=== PATIENT | female | born 1935 | race Caucasian/White ===

== ENCOUNTER → 2017-08-24 13:20 | Outpatient (POV) | payer MEDICARE, OTHER, SELFPAY | PROVIDERS: PCP Family Medicine; Visit Provider Nurse Practitioner Acute Care | DX: Z00.00 Encounter for general adult medical examination without abnormal findings (principal) ==

== ENCOUNTER → 2017-10-29 10:11 | Outpatient (CLI) | payer MEDICARE, OTHER, SELFPAY ==
--- NOTE | 2017-10-29 10:16 | XR_ITS ---
XR knee LT 4V HISTORY: ITS.REASON: Left knee pain ORDERING PHYSICIAN: Trenton Evans MD PATIENT AGE: 82 years COMPARISON: 04/18/2016 FINDINGS: Weightbearing views are performed. Moderate osteoarthritic changes are present at the medial compartment and patellofemoral joint this may be slightly worse along the medial compartment compared to the previous exam. No displaced fracture or dislocation. No lytic or blastic change. There is lucency present at the base of the lateral tibial spine spur or could represent fracture of the spur. IMPRESSION: Moderate osteoarthritis of the medial compartment and patellofemoral joint with possible fracture at the base of a lateral tibial spine spur
--- NOTE | 2017-10-29 10:16 | XR_ITS ---
XR knee RT 4V HISTORY: ITS.REASON: Right knee pain ORDERING PHYSICIAN: Trenton Evans MD PATIENT AGE: 82 years COMPARISON: 04/18/2016 FINDINGS: Weightbearing views are performed. Mild to moderate osteoarthritic changes are present at the medial compartment and patellofemoral joint similar when compared to the previous exam. Multiple small calcific densities are present in the medial popliteal fossa consistent with synovial osteochondromas. No fracture or dislocation. No lytic or blastic change. 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
== END ==
PROVIDERS: PCP Family Medicine; Visit Provider Orthopaedic Surgery
DX: M17.11 Unilateral primary osteoarthritis, right knee (principal); M17.12 Unilateral primary osteoarthritis, left knee
CPT/HCPCS: 73564

== ENCOUNTER → 2018-01-25 11:06 | Outpatient (CLI) | payer MEDICARE, OTHER, SELFPAY ==
--- NOTE | 2018-01-25 11:14 | XR_ITS ---
XR hip LT 2-3V w/pelvis HISTORY: Pain ITS.REASON: ARTHRITIS ORDERING PHYSICIAN: Anthony Vargas MD PATIENT AGE: 82 years COMPARISON: None FINDINGS: Minimal osteoarthritic changes are present involving the left hip. No fracture or dislocation. No lytic or blastic change. Facet arthritic changes are present involving the lower lumbar spine lumbar scoliosis convex left. IMPRESSION: Mild osteoarthritis of left hip
== END ==
PROVIDERS: PCP Family Medicine; Visit Provider Family Medicine
DX: M19.90 Unspecified osteoarthritis, unspecified site (principal)
CPT/HCPCS: 73502

== ENCOUNTER → 2018-08-23 12:37 | Outpatient (POV) | payer MEDICARE, OTHER, SELFPAY | PROVIDERS: Visit Provider Nurse Practitioner Acute Care | DX: Z00.00 Encounter for general adult medical examination without abnormal findings (principal) ==

== ENCOUNTER → 2019-01-04 13:35 | Outpatient (CLI) | payer MEDICARE, OTHER, SELFPAY ==
--- NOTE | 2019-01-04 13:43 | XR_ITS ---
XR knee RT 3V HISTORY: ITS.REASON: CHRONIC KNEE PAIN ORDERING PHYSICIAN: Anthony Vargas MD PATIENT AGE: 83 years COMPARISON: 10/29/2017 FINDINGS Moderate osteoarthritis is present at the medial compartment and patellofemoral joint with numerous loose bodies in the popliteal fossa. Spurring is noted of the tibial spine. No acute fracture or dislocation with no significant change. IMPRESSION: Osteoarthritis with multiple loose bodies/synovial osteochondromas
--- NOTE | 2019-01-04 13:43 | XR_ITS ---
XR knee LT 3V HISTORY: ITS.REASON: CHRONIC KNEE PAIN ORDERING PHYSICIAN: Anthony Vargas MD PATIENT AGE: 83 years COMPARISON: 10/29/2017 FINDINGS: There are moderate osteoarthritic changes of the medial compartment and patellofemoral joint with mild osteoarthritis of the lateral compartment. Bony spurring is present at the intercondylar region and tibial spines. No fracture or dislocation. No lytic or blastic change. The spurring is slightly worse in the tibial spine region. A calcific density is present in the popliteal region measuring 11 mm consistent with a loose body IMPRESSION: 1. Moderate osteoarthritis of left knee slightly progressed 2. Loose body in the popliteal region
== END ==
PROVIDERS: PCP Family Medicine; Visit Provider Family Medicine
DX: M25.561 Pain in right knee (principal); G89.29 Other chronic pain
CPT/HCPCS: 73562

== ENCOUNTER → 2019-01-11 12:49 | Outpatient (CLI) | payer MEDICARE, OTHER, SELFPAY ==
--- NOTE | 2019-01-11 12:55 | XR_ITS ---
XR DEXA axial skeleton HISTORY: ITS.REASON: POST MENOPAUSAL ORDERING PHYSICIAN: Anthony Vargas MD PATIENT AGE: 83 years COMPARISON: 01/27/2017 FINDINGS: The BMD measured at the Left femoral neck is 0.723 g/cm squared with a T score of -2.3. This is considered Osteopenic according to the World Health Organization criteria. Fracture risk is Moderate. Treatment is advised. The L1 L4 density has a T score of -0.2 decreased by 2.4%. The hip density has decreased by 3.5%. Scanogram images show mild lumbar scoliosis convex left IMPRESSION: Osteopenia with marked fracture risk. Treatment is advised. Suggest follow-up exam December 2020 Lumbar scoliosis convex left
== END ==
PROVIDERS: PCP Family Medicine; Visit Provider Family Medicine
DX: Z78.0 Asymptomatic menopausal state (principal)
CPT/HCPCS: 77080

== ENCOUNTER → 2019-06-01 13:26 | Outpatient (CLI) | payer MEDICARE, OTHER, SELFPAY ==
--- NOTE | 2019-06-01 13:35 | XR_ITS ---
PROCEDURE: XR KNEE RT 4V CLINICAL INDICATION: right knee pain Chronic right knee pain COMPARISON: [id number] KNEE-4 OR 5 VIEWS-LT from 04/18/2016 [id number] KNEE-4 OR 5 VIEWS-RT from 04/18/2016 [id number] XR knee LT 4V from 10/29/2017 [id number] XR knee RT 4V from 10/29/2017 FINDINGS: No fracture or dislocation. No lytic or blastic change. There is normal mineralization. There are mild tricompartmental osteoarthritic changes. Bony spurring is present at the tibial spines. There are multiple loose bodies along the medial aspect of the distal femur at the metaphyseal region medially. There is generalized vascular calcification. IMPRESSION: No change mild osteoarthritis with loose intra-articular bodies Dictated by: Torsten Szymanski MD 06/01/2019 18:05 Electronically signed by Torsten Szymanski MD in [place] 06/01/2019 18:05
--- NOTE | 2019-06-01 13:35 | XR_ITS ---
PROCEDURE: XR KNEE LT 4V CLINICAL INDICATION: left knee pain Chronic knee pain COMPARISON: [id number] KNEE-4 OR 5 VIEWS-LT from 04/18/2016 [id number] KNEE-4 OR 5 VIEWS-RT from 04/18/2016 [id number] XR knee LT 4V from 10/29/2017 [id number] XR knee RT 4V from 10/29/2017 FINDINGS: There are moderate to severe osteoarthritic changes of the medial compartment with mild osteoarthritis of the patellofemoral joint. The osteoarthritis medially is somewhat worse. There may be a loose body in the intercondylar region of the distal femur versus an overlying osteophyte. There is generalized vascular calcification. IMPRESSION: Moderate to severe osteoarthritis which has shown some progression at the medial compartment with possible loose body Dictated by: Torsten Szymanski MD 06/01/2019 18:07 Electronically signed by Torsten Szymanski MD in [place] 06/01/2019 18:07
== END ==
PROVIDERS: PCP Family Medicine; Visit Provider Orthopaedic Surgery
DX: M25.562 Pain in left knee (principal); M25.561 Pain in right knee
CPT/HCPCS: 73564

== ENCOUNTER 2019-07-21 14:30 | Outpatient (RCR) | payer MEDICARE, OTHER, SELFPAY ==
--- NOTE | 2019-06-07 15:08 | HMH.PTOPEV ---
PT Outpatient Evaluation Rehab PT Outpatient Evaluation Start: 06/07/19 14:13 Freq: Status: Active Protocol: Document 06/07/19 14:14 MENG (Rec: 06/07/19 15:07 MENG [id number]) Electronically Signed By Manish Amanda, PT 06/07/19 14:14 Outpatient Therapy Subjective History Subjective History Pt reports h/o chronic L hip and knee pain for ~10 yrs, and more recently reports R knee 'has started to hurt'. Pt reports posterior L hip/thigh pain, and anterior B knee pain , and reports recent Xrays have revealed arthritis in both knees. Chief Complaint Pain,Stiff,Weakness Symptom Type Ache,Sharp,Dull Symptoms Relieved By Rest/Positioning,Ice Symptoms Aggravated By Sitting,Standing,Walking Prior Functional Limitations Housework,Standing,Sitting, Stairs Current Functional Limitations Lifting,Standing,Sitting, Walking,Stairs Symptom Description Constant but Variable Level of pain today (0-10) 5 Pain scale - at its best (0-10) 4 Pain scale - at its worst (0-10) 7 Hip/Knee Eval Gait Observation General Gait Pattern Observation Antalgic Gait Assistive Device Assistive Devices None / NA Palpation Tenderness right Knee Palpation Finding Tenderness Knee Palpation Overall Comment 2/4 JT LINE left Knee Palpation Finding Tenderness Knee Palpation Overall Comment 3/4 L PIRI, 2/4 MEDIAL-LATERAL JT LINE Hip Palpation Findings Tenderness MMT bilateral Hip Flexion Strength Grade 4- Good- Hip Abduction Strength Grade 4- Good- Hip Adduction Strength Grade 4- Good- Gluteus Leeroy Strength Grade 4- Good- Hip External Rotation Strength Grade 4 Good Hip Internal Rotation Strength Grade 4 Good Knee Extension Strength Grade 4 Good Knee Flexion Strength Grade 4 Good ROM Knee Flexion Active Range of Motion ( 0-125 degrees) Special Tests Hip Piriformis Test Negative Right,Positive Left Sciatic Nerve Tension Test Negative Right,Positive Left Patellar Grind Test Positive Left,Positive Right Patellar Compression Test Positive Left,Positive Right Outpatient Therapy Assessment Impairments Problems/Impairmments Palpation Tenderness,Impaired Range of Motion,Impaired Strength,Impaired Gait Pattern ,Impaired Walking,Impaired Standing,Impaired Sitting,
--- NOTE | 2019-07-05 09:21 | HMH.RHREAS ---
Rehab Reassessment Rehab OP Re-assessment Start: 07/05/19 09:13 Freq: Status: Active Protocol: Document 07/05/19 09:13 MENG (Rec: 07/05/19 09:19 MENG [id number]) Electronically Signed By Manish Amanda, PT 07/05/19 09:13 Rehab Re-assessment Subjective Subjective PT REPORTS 5/10 L HIP PAIN, 3/ 10 R KNEE PAIN, 5/10 L KNEE PAIN ON VAS, AND FEELS 50% BETTER OVERALL SINCE I EVAL Objective Objective Notes AROM: B KNEE FLX 0-125 NO PAIN MMT: B HIP FLX 4+/5, B HIP ADD /ABD/EXT 4/5, B KNEE FLX AND EXT 4+/5 TTP: L PIRI 0-08/20, L KNEE MEDIAL AND LATERAL JT LINE 1- Assessment Progress Assessment Progressing as Expected Assessment Notes PT WITH IMPROVED STRENGTH, ROM , ADN TTP Patient goals met STG'S 01/22 LTG'S 10/25 Goals Not Met STG'S 09/24, LTG'S 03/27 Plan Plan PT TO CONT. W/SKILLED P.T. TO MAKE FURTHER IMPROVEMNTS IN AROM, STRENGTH, AND TTP TO ALLOW FOR OPTIMAL FUNCTION Frequency of Therapy 2-3X/WK Duration of therapy 3-4 WKS Time and Billing Re-Eval Time 15 Re-Eval Billing Units 0 PHYSICIAN CERTIFICATION: I certify the specified therapy services for Gabi Chavis are required, authorized, and reviewed every 30 days.
== END 2019-07-21 14:35 | disposition home or self-care (01) ==
LOC: PT 14:30
PROVIDERS: PCP Family Medicine; Visit Provider Orthopaedic Surgery
DX: M17.0 Bilateral primary osteoarthritis of knee (principal)
CPT/HCPCS: 97010; 97014; 97035; 97110; 97140; 97163; 97164; G0283

== ENCOUNTER 2019-08-20 11:52 | Observation (INO) ==
--- NOTE | 2019-08-20 12:15 | Pharmacy Consult Notes ---
[facility] Pharmacy VTE Monitoring - Patient Demographics Admission date: 08/20/19 Report Date: 08/20/19 Time: 12:15 Allergies/Adverse Reactions: Patient Allergies streptomycin Allergy (Intermediate, Verified 07/22/19 00:01) NUMBNESS IN FACE homatropine [From Hycodan (with homatropin)] Adverse Reaction (Mild, Verified 07/22/19 00:01) NA-NAUSEA; ANOREXIA hydrocodone [From Hycodan (with homatropin)] Adverse Reaction (Mild, Verified 07/22/19 00:01) NA-NAUSEA; ANOREXIA - Prophylaxis VTE Prophylaxis Ordered?: Yes Types of VTE Prophylaxis: TEDS Knee High Location of Applied Device: Bilateral Lower Extremeties - VTE Diagnosis Confirmed Treatment or plan recommended: Continue Current Treatment
[2019-08-20 12:58] LABS: Basophils % 0.1 % (0.1-2.0); Eosinophils # 0.1 K/mm3 (0.0-0.4); Eosinophils % 0.4 % (0.1-12.0); Hematocrit 36.5 % (37.0-47.0); Hemoglobin 11.9 g/dL (12.2-16.2); Lymphocytes # 0.9 K/mm3 (0.7-4.5); Lymphocytes % 4.1 % (10-50); Mean Corpuscular HGB Conc 32.5 g/dL (31.8-35.4); Mean Corpuscular Volume 99.9 fl (81-99); Mean Platelet Volume 7.9 fl (7.4-10.4); Monocytes % 4.6 % (1.7-9.3); Neutrophils # 19.7 K/mm3 (1.8-7.8); Neutrophils % 90.8 % (37.0-80.0); Platelet Count 299 K/mm3 (142-424); Red Blood Count 3.66 M/mm3 (4.20-5.40); Red Cell Distribution Width 12.4 % (11.5-17.5)
[2019-08-20 13:08] LABS: Albumin Level 3.2 gm/dL (3.4-5.0); Albumin/Globulin Ratio 0.9 (1.1-1.8); Anion Gap 10.8 mEq/L (5-15); Bilirubin,Total 0.3 mg/dL (0.2-1.0); Calcium 8.8 mg/dL (8.5-10.1); Globulin 3.5 gm/dl (1.3-3.2); Total Protein,Serum 6.7 gm/dL (6.4-8.2); White Blood Count 21.4 K/mm3 (4.8-10.8)
[2019-08-20 13:50] LABS: Lymphocytes % 2 % (10-50); Monocytes % 6 % (2-9); Neutrophils % 92 % (42-76); RBC Morphology Normal; Total Cells Counted 100
--- NOTE | 2019-08-20 16:48 | History & Physical Report ---
*Admission Date: 08/20/19 *Chief complaint: Crampy abdominal pain *History of present illness: 84-year-old female with left-sided diverticulosis presented to the office today with complaint of 3 days of crampy abdominal pain that had been increasing in intensity and localized to the left lower quadrant. Stools have become more frequent but were not excessively watery. Patient denies fevers but admits to mild chills. She has had diverticulitis before that was successfully treated as an outpatient. In the office she was felt to be mildly dehydrated with significant pain and tenderness on abdominal exam and decision was made to admit the patient for inpatient treatment. Patient does have an exposure to C. difficile through her . He was diagnosed approximately 6 weeks ago with C. difficile diarrhea and was successfully treated with vancomycin. Since admission patient's white count has returned elevated at 20,000, CT scan is pending. [facility] History I have reviewed the patient's past medical history: Yes Medical History: Reports:: Cancer, Hyperlipidemia, Hypertension *Have you ever received a pneumonia vaccine?: Yes *Have you received a flu vaccine this season?: Yes Other Medical History: Reports: Arthritis Laterality Cases: Bilateral: Tonsillectomy, Other Other Surgeries: Yes: Appendectomy, Cholecystectomy, Hernia Repair, Hysterectomy-Total, Other (Gallbladder.) - *Social History Smoking Status: Never smoker Alcohol Intake: never Substance Use Type: denies use *Occupational Status:: retired Housing: apartment Household Members: spouse *Travel in the last 8 weeks: None Family Hx:: Diabetes, Heart Attack, Coronary Artery Disease, Thyroid Disorder Review of Systems - Constitutional Reports chills, Reports lack of energy, Reports weakness, Denies body ache(s), Denies fever(s), Denies night sweats - *Cardiovascular Denies chest pain - *Respiratory Denies change in phlegm color - *Gastrointestinal Reports abdominal pain, Reports bloating, Reports change in stools, Reports cramping, Reports nausea, Denies constipation, Denies heartburn, Denies difficulty swallowing, Denies excessive passing of gas, Denies incontinent of stools, Denies black, tarry stools, Denies vomiting Meds Home Medications Medication Instructions Recorded Confirmed Type hydrochlorothiazide 25 mg tablet 25 mg PO 1200 10/29/17 08/20/19 History multivitamin 1 tab PO DAILY tab 01/26/18 08/20/19 History pantoprazole 20 mg tablet,delayed 40 mg PO DAILY tab 01/26/18 08/20/19 History release Bifidobacterium Infantis [Align] 4 mg PO DAILY 08/20/19 08/20/19 History Calcium Carbonate/Vitamin D3 1 each PO 0800,1200 08/20/19 08/20/19 History [Calcium 1,000 + D3 Caplet] Temazepam [Restoril 30mg capsule] 30 mg PO HSP PRN 08/20/19 08/20/19 History Allergies Allergy/AdvReac Type Severity Reaction Status Date / Time streptomycin Allergy Intermediate NUMBNESS Verified 07/22/19 00:01 IN FACE homatropine AdvReac Mild NA-NAUSEA; Verified 07/22/19 00:01 [From Hycodan (with ANOREXIA homatropin)] hydrocodone AdvReac Mild NA-NAUSEA; Verified 07/22/19 00:01 [From Hycodan (with ANOREXIA homatropin)] Exam Vital signs and Labs for Last 24 Hours: Temp Pulse Resp BP Pulse Ox 98.3 F 83 17 106/58 L 97 08/20/19 16:00 08/20/19 16:00 08/20/19 16:00 08/20/19 16:00 08/20/19 16:00 Laboratory Results - last 24 hr 08/20/19 12:25: WBC 21.4 H*, RBC 3.66 L, Hgb 11.9 L, Hct 36.5 L, MCV 99.9 H, MCH 32.5 H, MCHC 32.5, RDW 12.4, Plt Count 299, MPV 7.9, Neut % (Auto) 90.8 H, Lymph % (Auto) 4.1 L, [place] % (Auto) 4.6, Eos % (Auto) 0.4, Baso % (Auto) 0.1, Neut # (Auto) 19.7 H, Lymph # (Auto) 0.9, [place] # (Auto) 1.0, Eos # (Auto) 0.1, Baso # (Auto) 0.0, Total Counted 100, Neutrophils % (Manual) 92 H, Lymphocytes % (Manua l) 2 L, Monocytes % (Manual) 6, Platelet Estimate Normal, RBC Morphology Normal 08/20/19 12:25: Sodium 141, Potassium 2.8 L*, Chloride 101, Carbon Dioxide 32, Anion Gap 10.8, BUN 11, Creatinine 0.54 L, Estimated Creat Clear 27, Estimated GFR 108, Est GFR ( Amer) 130, Glucose 97, Calcium 8.8, Total Bilirubin 0.3, AST 4 L, ALT 8 L, Alkaline Phosphatase 73, Total Protein 6.7, Albumin 3.2 L , Globulin 3.5 H, Albumin/Globulin Ratio 0.9 L 08/20/19 12:25: Lactate 0.8 I & O for Last 24 hours: Intake & Output 08/18/19 08/19/19 08/20/19 08/21/19 11:59 11:59 11:59 11:59 Weight 91 lb 7 oz - Constitutional no acute distress - *Routine HEENT Exam Head: Present: normocephalic Eye: Present: EOMI, PERRL ENT: Present: mucous membranes dry - *Routine Respiratory Exam Present: CTA bilaterally - *Routine Cardiovascular Exam Present: RRR, Normal S1, Normal S2 - *Routine Abdominal Exam Present: soft, tenderness (Left lower quadrant). Absent: distended, rebound, guarding, rigid - *Routine Extremities Exam Absent: cyanosis, clubbing, edema - *Routine Skin Exam Absent: intact - *Routine Neurological Exam Present: alert, oriented X3, CN II-XII intact. Absent: sensory deficit, motor deficit Assessment and Plan (1) Diverticulitis large intestine w/o perforation or abscess w/o bleeding Current visit: Yes Status: Acute Category: Medical Code(s): K57.32 - Diverticulitis of large intestine without perforation or abscess without bleeding Patient has been admitted and was originally given Flagyl to the IV while awaiting CT scan. Due to patient's frequency of stools it is less likely she has C. difficile and I am going to add Levaquin to her regimen. Patient has been ordered a liquid diet and started on IV fluids with normal saline. (2) Hypokalemia Current visit: Yes Status: Acute Category: Medical Code(s): E87.6 - Hypokalemia Potassium chloride has been added to the patient's IV fluids and she has been given oral potassium
[2019-08-21 06:20] LABS: Basophils % 0.1 % (0.1-2.0); Eosinophils # 0.1 K/mm3 (0.0-0.4); Eosinophils % 0.4 % (0.1-12.0); Hematocrit 31.3 % (37.0-47.0); Lymphocytes % 8.1 % (10-50); Mean Corpuscular HGB Conc 32.3 g/dL (31.8-35.4); Mean Corpuscular Volume 101.4 fl (81-99); Mean Platelet Volume 7.1 fl (7.4-10.4); Monocytes # 0.7 K/mm3 (0.1-1.0); Monocytes % 5.3 % (1.7-9.3); Platelet Count 261 K/mm3 (142-424); Red Blood Count 3.09 M/mm3 (4.20-5.40); Red Cell Distribution Width 12.6 % (11.5-17.5); White Blood Count 12.8 K/mm3 (4.8-10.8)
[2019-08-21 06:28] LABS: Albumin Level 2.3 gm/dL (3.4-5.0); Albumin/Globulin Ratio 0.8 (1.1-1.8); Bilirubin,Total 0.3 mg/dL (0.2-1.0); Globulin 2.8 gm/dl (1.3-3.2); Total Protein,Serum 5.1 gm/dL (6.4-8.2)
[2019-08-21 06:48] LABS: Hemoglobin 10.2 g/dL (12.2-16.2)
[2019-08-21 07:40] LABS: Anisocytosis 1+; Lymphocytes % 9 % (10-50); Macrocytosis 1+; Monocytes % 4 % (2-9); Neutrophils % 87 % (42-76); Total Cells Counted 100
--- NOTE | 2019-08-21 08:34 | Progress Note ---
Internal Medicine - PN: Subj *Date: 08/21/19 *Time: 08:32 Interval history: CT scan performed yesterday showed significant colitis and liquidy stool. Subsequent diarrhea panel returned positive for C. difficile. Patient's Levaquin was discontinued and she was started on oral vancomycin. This morning she reports no abdominal pain as long as she remains supine. She is ambulated very little and still feels quite weak. Her appetite remains poor. She had 2 episodes of diarrhea yesterday evening Exam Vital signs and Labs for Last 24 Hours: Temp Pulse Resp BP Pulse Ox 98.5 F 77 17 137/59 L 98 08/21/19 07:36 08/21/19 07:36 08/21/19 07:36 08/21/19 07:36 08/21/19 07:36 Laboratory Results - last 24 hr 08/20/19 12:25: WBC 21.4 H*, RBC 3.66 L, Hgb 11.9 L, Hct 36.5 L, MCV 99.9 H, MCH 32.5 H, MCHC 32.5, RDW 12.4, Plt Count 299, MPV 7.9, Neut % (Auto) 90.8 H, Lymph % (Auto) 4.1 L, [place] % (Auto) 4.6, Eos % (Auto) 0.4, Baso % (Auto) 0.1, Neut # (Auto) 19.7 H, Lymph # (Auto) 0.9, [place] # (Auto) 1.0, Eos # (Auto) 0.1, Baso # (Auto) 0.0, Total Counted 100, Neutrophils % (Manual) 92 H, Lymphocytes % (Manual) 2 L, Monocytes % (Manual) 6, Platelet Estimate Normal, RBC Morphology Normal 08/20/19 12:25: Sodium 141, Potassium 2.8 L*, Chloride 101, Carbon Dioxide 32, Anion Gap 10.8, BUN 11, Creatinine 0.54 L, Estimated Creat Clear 27, Estimated GFR 108, Est GFR ( Amer) 130, Glucose 97, Calcium 8.8, Total Bilirubin 0.3, AST 4 L, ALT 8 L, Alkaline Phosphatase 73, Total Protein 6.7, Albumin 3.2 L , Globulin 3.5 H, Albumin/Globulin Ratio 0.9 L 08/20/19 12:25: Lactate 0.8 08/20/19 19:37: Stl Aeromonas (PCR) Not detected, Stl C. cayetanensis PCR Not detected, Stool Rotavirus (PCR) Not detected, Stl Adenov F 40/41 PCR Not detected, Stool Astrovirus (PCR) Not detected, Stool Campylobacter PCR Not detected, Stl C.difficile Tox PCR Detected A, Stool Cryptosporidium PCR Not detected, Stl E.coli Shiga Tox PCR Not detected, Stool E coli O157 PCR Not detected, Stl Enterotoxigenic E PCR Not detected, Stool EPEC (PCR) Not detected, Stool EAEC (PCR) Not detected, Stl E. histolytica PCR Not detected, Stool Giardia Lamblia PCR Not detected, Stool Salmonella PCR Not detected, Stool Sapovirus (PCR) Not detected, Stl P. shigelloides PCR Not detected, Stl Shigella/EIEC PCR Not detected, St Y.enterocolitica PCR Not detected, Stool Vibrio (PCR) Not detected, Stl Vibrio cholerae PCR Not detected, Stl Norovirus GI/GII PCR Not detected 08/21/19 05:50: WBC 12.8 H D, RBC 3.09 L, Hgb 10.2 L D, Hct 31.3 L, MCV 101.4 H, MCH 32.7 H, MCHC 32.3, RDW 12.6, Plt Count 261, MPV 7.1 L, Neut % (Auto) 86.0 H, Lymph % (Auto) 8.1 L, [place] % (Auto) 5.3, Eos % (Auto) 0.4, Baso % (Auto) 0.1, Neut # (Auto) 11.0 H, Lymph # (Auto) 1.0, [place] # (Auto) 0.7, Eos # (Auto) 0.1, Baso # (Auto) 0.0, Total Counted 100, Neutrophils % (Manual) 87 H, Lymphocytes % (Manual) 9 L, Monocytes % (Manual) 4, Platelet Estimate Normal, RBC Morphology Not Reportable, Anisocytosis 1+, Macrocytosis 1+ 08/21/19 05:50: Sodium 143, Potassium 4.0 D, Chloride 109 H, Carbon Dioxide 27, Anion Gap 11.0, BUN 7 D, Creatinine 0.41 L D, Estimated Creat Clear 30, Estimated GFR 148, Est GFR ( Amer) 179 D, Glucose 81, Calcium 8.0 L, Total Bilirubin 0.3, AST 4 L, ALT 6 L, Alkaline Phosphatase 57, Total Protein 5.1 L, Albumin 2.3 L D, Globulin 2.8, Albumin/Globulin Ratio 0.8 L I & O for Last 24 hours: Intake & Output 08/18/19 08/19/19 08/20/19 08/21/19 11:59 11:59 11:59 11:59 Intake Total 2829 / 2829 Output Total 1501 / 1501 Balance 1328 / 1328 Weight 98 lb 7 oz Narrative: Patient looks weak. Lungs are clear. Heart has a regular rate and rhythm. Abdomen is soft with palpable fullness in the right lower quadrant and exquisite tenderness without rebound or guarding in the left lower quadrant. Bowel sounds are present Assessment and Plan (1) C. difficile colitis Current visit: Yes Status: Acute Category: Medical Code(s): A04.72 - Enterocolitis due to Clostridium difficile, not specified as recurrent (2) Diverticulitis large intestine w/o perforation or abscess w/o bleeding Current visit: Yes Status: Ruled-out Category: Medical Code(s): K57.32 - Diverticulitis of large intestine without perforation or abscess without bleeding (3) Hypokalemia Current visit: Yes Status: Resolved Category: Medical Code(s): E87.6 - Hypokalemia - Assessment and plan all Dx Assessment and Plan for all problems:: Patient continues to require inpatient management for pain control, IV fluids due to poor appetite. Patient has been encouraged to ambulate today with the assistance of nursing staff. Vancomycin will be continued. IV Flagyl will be discontinued
[2019-08-22 06:30] LABS: Basophils % 0.3 % (0.1-2.0); Eosinophils # 0.2 K/mm3 (0.0-0.4); Eosinophils % 2.2 % (0.1-12.0); Hematocrit 30.5 % (37.0-47.0); Lymphocytes # 1.2 K/mm3 (0.7-4.5); Lymphocytes % 14.9 % (10-50); Mean Corpuscular HGB Conc 32.9 g/dL (31.8-35.4); Mean Platelet Volume 7.6 fl (7.4-10.4); Monocytes # 0.4 K/mm3 (0.1-1.0); Monocytes % 4.5 % (1.7-9.3); Neutrophils # 6.2 K/mm3 (1.8-7.8); Neutrophils % 78.1 % (37.0-80.0); Platelet Count 286 K/mm3 (142-424); Red Blood Count 3.11 M/mm3 (4.20-5.40); Red Cell Distribution Width 12.4 % (11.5-17.5)
[2019-08-22 06:38] LABS: Anion Gap 11.9 mEq/L (5-15); Calcium 7.8 mg/dL (8.5-10.1)
--- NOTE | 2019-08-22 07:50 | Progress Note ---
Internal Medicine - PN: Subj *Date: 08/22/19 *Time: 07:48 Interval history: Patient believes she is feeling a little stronger. She starting to develop more of an appetite. She continues to have left lower quadrant abdominal pain. She denies any further loose stools Exam Vital signs and Labs for Last 24 Hours: Temp Pulse Resp BP Pulse Ox 97.7 F 66 16 116/52 L 95 08/22/19 04:00 08/22/19 04:00 08/22/19 04:00 08/22/19 04:00 08/22/19 04:00 Laboratory Results - last 24 hr 08/22/19 06:18: WBC 8.0 D, RBC 3.11 L, Hgb 10.0 L, Hct 30.5 L, MCV 98.0, MCH 32.2 H, MCHC 32.9, RDW 12.4, Plt Count 286, MPV 7.6, Neut % (Auto) 78.1, Lymph % (Auto) 14.9, [place] % (Auto) 4.5, Eos % (Auto) 2.2, Baso % (Auto) 0.3, Neut # (Auto) 6.2, Lymph # (Auto) 1.2, [place] # (Auto) 0.4, Eos # (Auto) 0.2, Baso # (Auto) 0.0 08/22/19 06:18: Sodium 141, Potassium 3.9, Chloride 109 H, Carbon Dioxide 24, Anion Gap 11.9, BUN 4 L D, Creatinine 0.38 L, Estimated Creat Clear 29, Estimated GFR 161, Est GFR ( Amer) 195, Glucose 65 L, Calcium 7.8 L I & O for Last 24 hours: Intake & Output 08/19/19 08/20/19 08/21/19 08/22/19 11:59 11:59 11:59 11:59 Intake Total 2829 / 2829 2554 / 2554 Output Total 1601 / 1601 1000 / 1000 Balance 1228 / 1228 1554 / 1554 Weight 98 lb 7 oz 95 lb 6 oz Narrative: Patient looks well although rather sleepy this morning. Lungs are clear. Heart has a regular rate and rhythm. Abdomen is soft with left lower quadrant tenderness to palpation. Area of tenderness seems to be shrinking. Bowel sounds are present Assessment and Plan (1) C. difficile colitis Current visit: Yes Status: Acute Category: Medical Code(s): A04.72 - Enterocolitis due to Clostridium difficile, not specified as recurrent (2) Diverticulitis large intestine w/o perforation or abscess w/o bleeding Current visit: Yes Status: Ruled-out Category: Medical Code(s): K57.32 - Diverticulitis of large intestine without perforation or abscess without bleeding (3) Hypokalemia Current visit: Yes Status: Resolved Category: Medical Code(s): E87.6 - Hypokalemia - Assessment and plan all Dx Assessment and Plan for all problems:: 1. PT eval 2. Decrease IV fluids 3. Continue oral vancomycin 4. Possible discharge tomorrow
[2019-08-23 06:42] LABS: Basophils % 0.3 % (0.1-2.0); Eosinophils # 0.2 K/mm3 (0.0-0.4); Eosinophils % 2.1 % (0.1-12.0); Hematocrit 31.1 % (37.0-47.0); Hemoglobin 10.3 g/dL (12.2-16.2); Lymphocytes % 15.1 % (10-50); Mean Corpuscular HGB Conc 33.1 g/dL (31.8-35.4); Mean Corpuscular Volume 97.4 fl (81-99); Mean Platelet Volume 7.5 fl (7.4-10.4); Monocytes # 0.3 K/mm3 (0.1-1.0); Monocytes % 4.3 % (1.7-9.3); Neutrophils # 5.4 K/mm3 (1.8-7.8); Neutrophils % 78.1 % (37.0-80.0); Platelet Count 301 K/mm3 (142-424); Red Cell Distribution Width 12.4 % (11.5-17.5); White Blood Count 6.9 K/mm3 (4.8-10.8)
[2019-08-23 06:52] LABS: Anion Gap 12.5 mEq/L (5-15)
--- NOTE | 2019-08-23 07:49 | Progress Note ---
Internal Medicine - PN: Subj *Date: 08/23/19 *Time: 07:46 Interval history: Patient reports less abdominal pain. She is still unsteady on her feet when ambulating. Her appetite is slowly improving. Exam Vital signs and Labs for Last 24 Hours: Temp Pulse Resp BP Pulse Ox 98.1 F 65 16 128/62 96 08/23/19 04:00 08/23/19 04:00 08/23/19 04:00 08/23/19 04:00 08/23/19 04:00 Laboratory Results - last 24 hr 08/23/19 06:24: WBC 6.9, RBC 3.20 L, Hgb 10.3 L, Hct 31.1 L, MCV 97.4, MCH 32.3 H, MCHC 33.1, RDW 12.4, Plt Count 301, MPV 7.5, Neut % (Auto) 78.1, Lymph % (Auto) 15.1, [place] % (Auto) 4.3, Eos % (Auto) 2.1, Baso % (Auto) 0.3, Neut # (Auto) 5.4, Lymph # (Auto) 1.0, [place] # (Auto) 0.3, Eos # (Auto) 0.2, Baso # (Auto) 0.0 08/23/19 06:24: Sodium 141, Potassium 3.5, Chloride 106, Carbon Dioxide 26, Anion Gap 12.5, BUN 4 L, Creatinine 0.37 L, Estimated Creat Clear 29, Estimated GFR 166, Est GFR ( Amer) 201, Glucose 73 L, Calcium 8.0 L I & O for Last 24 hours: Intake & Output 08/20/19 08/21/19 08/22/19 08/23/19 11:59 11:59 11:59 11:59 Intake Total 2829 / 2829 2794 / 2794 2792 / 2792 Output Total 1601 / 1601 1000 / 1000 2351 / 2351 Balance 1228 / 1228 1794 / 1794 441 / 441 Weight 98 lb 7 oz 95 lb 6 oz 97 lb 1 oz Microbiology Reports for the Last 24 Hours: Microbiology 08/20/19 12:25 Blood Blood Culture - Preliminary NO GROWTH AFTER 48 HOURS 08/20/19 12:25 Blood Blood Culture - Preliminary NO GROWTH AFTER 48 HOURS Narrative: Patient is laying in bed and appears comfortable. Lungs remain clear. Heart has a regular rate and rhythm. Abdomen is soft with left lower quadrant tenderness that is improved today compared to yesterday Assessment and Plan (1) C. difficile colitis Current visit: Yes Status: Acute Category: Medical Code(s): A04.72 - Enterocolitis due to Clostridium difficile, not specified as recurrent (2) Diverticulitis large intestine w/o perforation or abscess w/o bleeding Current visit: Yes Status: Ruled-out Category: Medical Code(s): K57.32 - Diverticulitis of large intestine without perforation or abscess without bleeding (3) Hypokalemia Current visit: Yes Status: Resolved Category: Medical Code(s): E87.6 - Hypokalemia - Assessment and plan all Dx Assessment and Plan for all problems:: Patient is improving. We will see how the day goes in regards to her ability to ambulate independently and safely. OT eval and continue physical therapy
--- NOTE | 2019-08-23 10:06 | Progress Note ---
Internal Medicine - PN: Subj *Date: 08/23/19 *Time: 10:06 Exam Vital signs and Labs for Last 24 Hours: Temp Pulse Resp BP Pulse Ox 98.4 F 77 18 140/60 95 08/23/19 08:00 08/23/19 08:00 08/23/19 08:00 08/23/19 08:00 08/23/19 08:00 Laboratory Results - last 24 hr 08/23/19 06:24: WBC 6.9, RBC 3.20 L, Hgb 10.3 L, Hct 31.1 L, MCV 97.4, MCH 32.3 H, MCHC 33.1, RDW 12.4, Plt Count 301, MPV 7.5, Neut % (Auto) 78.1, Lymph % (Auto) 15.1, [place] % (Auto) 4.3, Eos % (Auto) 2.1, Baso % (Auto) 0.3, Neut # (Auto) 5.4, Lymph # (Auto) 1.0, [place] # (Auto) 0.3, Eos # (Auto) 0.2, Baso # (Auto) 0.0 08/23/19 06:24: Sodium 141, Potassium 3.5, Chloride 106, Carbon Dioxide 26, Anion Gap 12.5, BUN 4 L, Creatinine 0.37 L, Estimated Creat Clear 29, Estimated GFR 166, Est GFR ( Amer) 201, Glucose 73 L, Calcium 8.0 L I & O for Last 24 hours: Intake & Output 08/20/19 08/21/19 08/22/19 08/23/19 23:59 23:59 23:59 23:59 Intake Total 1141 / 1141 3362 / 3362 3445 / 3565 1204 / 1204 Output Total 1400 / 1401 1001 / 1001 2251 / 2251 300 / 300 Balance -259 / -260 2361 / 2361 1194 / 1314 904 / 904 Weight 41.475 kg 44.65 kg 43.261 kg 44.027 kg Microbiology Reports for the Last 24 Hours: Microbiology 08/20/19 12:25 Blood Blood Culture - Preliminary NO GROWTH AFTER 48 HOURS 08/20/19 12:25 Blood Blood Culture - Preliminary NO GROWTH AFTER 48 HOURS Assessment and Plan (1) C. difficile colitis Current visit: Yes Status: Acute Category: Medical Code(s): A04.72 - Enterocolitis due to Clostridium difficile, not specified as recurrent (2) Diverticulitis large intestine w/o perforation or abscess w/o bleeding Current visit: Yes Status: Ruled-out Category: Medical Code(s): K57.32 - Diverticulitis of large intestine without perforation or abscess without bleeding (3) Hypokalemia Current visit: Yes Status: Resolved Category: Medical Code(s): E87.6 - Hy pokalemia The patient's infection will respond to the chosen ABx?: Yes Is the patient receiving the right drug, dose, and route?: Yes Could a more targeted ABx be ordered?: No
[2019-08-24 07:31] LABS: Basophils % 0.3 % (0.1-2.0); Eosinophils # 0.1 K/mm3 (0.0-0.4); Eosinophils % 1.6 % (0.1-12.0); Hematocrit 32.9 % (37.0-47.0); Hemoglobin 10.7 g/dL (12.2-16.2); Lymphocytes # 1.1 K/mm3 (0.7-4.5); Mean Corpuscular HGB Conc 32.7 g/dL (31.8-35.4); Mean Corpuscular Volume 100.4 fl (81-99); Mean Platelet Volume 8.2 fl (7.4-10.4); Monocytes # 0.5 K/mm3 (0.1-1.0); Monocytes % 5.5 % (1.7-9.3); Neutrophils # 6.6 K/mm3 (1.8-7.8); Neutrophils % 79.6 % (37.0-80.0); Platelet Count 323 K/mm3 (142-424); Red Blood Count 3.27 M/mm3 (4.20-5.40); Red Cell Distribution Width 12.5 % (11.5-17.5); White Blood Count 8.2 K/mm3 (4.8-10.8)
--- NOTE | 2019-08-24 08:11 | Discharge Summary ---
General - General Admission date:: 08/20/19 Discharge date: 08/24/19 HPI HPI: 84-year-old female with left-sided diverticulosis presented to the office today with complaint of 3 days of crampy abdominal pain that had been increasing in intensity and localized to the left lower quadrant. Stools have become more frequent but were not excessively watery. Patient denies fevers but admits to mild chills. She has had diverticulitis before that was successfully treated as an outpatient. In the office she was felt to be mildly dehydrated with significant pain and tenderness on abdominal exam and decision was made to admit the patient for inpatient treatment. Patient does have an exposure to C. difficile through her . He was diagnosed approximately 6 weeks ago with C. difficile diarrhea and was successfully treated with vancomycin. Since admission patient's white count has returned elevated at 20,000, CT scan is pending. Hospital Course Hospital Course: Patient was admitted initially was felt to have acute diverticulitis due to focal left lower quadrant tenderness and elevated white blood cell count. Stool panel was ordered and a CT scan was performed. CT scan showed diffuse colitis a nd diarrhea panel revealed C. difficile in the stool. Patient does have known exposure with her having C. difficile approximately 1 month ago. She was placed on oral vancomycin 4 times per day. From that point patient gradually showed improvement each day and her abdominal pain. As patient had been ill for 3 days prior to admission she was quite weak. PT was consulted once patient was showing signs of improvement. They assessed the patient and continue to work with patient over the 2 days prior to discharge. Patient showed rapid improvement in strength and steadiness on her feet. Her appetite was improving. By the day of discharge patient felt like she was eating normal amounts of food compared to what she would eat at home. Abdominal pain had resolved. Bowel movements were soft but not diarrhea. Patient will be discharged home to continue a 2-week course of vancomycin and follow-up in my office on September 02 Patient had hypokalemia on presentation and this was treated with IV potassium supplementation. Objective Vital signs: Temp Pulse Resp BP Pulse Ox 98.1 F 70 18 128/58 L 97 08/24/19 04:00 08/24/19 04:00 08/24/19 04:00 08/24/19 04:00 08/24/19 04:00 no acute distress - *Routine Respiratory Exam Present: CTA bilaterally - *Routine Cardiovascular Exam Present: RRR, Normal S1, Normal S2 - *Routine Abdominal Exam Present: soft, normoactive bowel sounds Results Labs on day of discharge: Labs from last 24 hours 08/24/19 06:40 WBC 8.2 RBC 3.27 L Hgb 10.7 L Hct 32.9 L MCV 100.4 H MCH 32.8 H MCHC 32.7 RDW 12.5 Plt Count 323 MPV 8.2 Neut % (Auto) 79.6 Lymph % (Auto) 13.0 [place] % (Auto) 5.5 Eos % (Auto) 1.6 Baso % (Auto) 0.3 Neut # (Auto) 6.6 Lymph # (Auto) 1.1 [place] # (Auto) 0.5 Eos # (Auto) 0.1 Baso # (Auto) 0.0 Preliminary micro results at discharge 08/20/19 12:25 Blood Culture - Preliminary Blood NO GROWTH AFTER 48 HOURS 08/20/19 12:25 Blood Culture - Preliminary Blood NO GROWTH AFTER 48 HOURS DS: Diagnosis - Discharge Diagnosis (1) C. difficile colitis Status: Acute (2) Diverticulitis large intestine w/o perforation or abscess w/o bleeding Status: Ruled-out (3) Hypokalemia Status: Resolved Discharge Plan - Patient Discharge Instructions ACTIVITY: Continue current activity DIET: continue same diet Patient Instructions: DI for Diverticulitis, DI for Clostridium difficile Infection - Follow up Plan Follow up with: Anthony Vargas MD [Primary Care Provider] - 09/02/19 Disposition: Home, Self-Halfway Medications: Home Medications Medication Instructions Recorded Confirmed Type hydrochlorothiazide 25 mg tablet 25 mg PO DAILY 10/29/17 08/21/19 History multivitamin 1 tab PO DAILY tab 01/26/18 08/20/19 History pantoprazole 20 mg tablet,delayed 40 mg PO DAILY tab 01/26/18 08/20/19 History release Bifidobacterium Infantis [Align] 4 mg PO DAILY 08/20/19 08/20/19 History Calcium Carbonate/Vitamin D3 1 each PO 0800,1200 08/20/19 08/20/19 History [Calcium 1,000 + D3 Caplet] Temazepam [Restoril 30mg capsule] 30 mg PO HSP PRN 08/20/19 08/20/19 History Potassium Chloride 10 meq PO DAILY #30 tablet.er 08/24/19 Rx Vancomycin HCl [Vancocin HCl] 250 mg PO Q6 #40 cap 08/24/19 Rx Prescriptions/Medication Reconciliation: New Potassium Chloride 10 meq PO DAILY #30 tablet.er Vancomycin HCl [Vancocin HCl] 250 mg PO Q6 #40 cap Continued hydrochlorothiazide 25 mg tablet 25 mg PO DAILY pantoprazole 20 mg tablet,delayed release 40 mg PO DAILY tab multivitamin 1 tab PO DAILY tab Calcium Carbonate/Vitamin D3 [Calcium 1,000 + D3 Caplet] 1 each PO 0800,1200 Bifidobacterium Infantis [Align] 4 mg PO DAILY Temazepam [Restoril 30mg capsule] 30 mg PO HSP PRN PRN Reason: Sleep - Problem Reconciliation Problems Reviewed?: Yes
== END 2019-08-24 09:49 | disposition home or self-care (01) ==
LOC: 2ND 11:52 → INTOOBSV 11:52
PROVIDERS: ADMIT Family Medicine; ATTEND Family Medicine
CPT/HCPCS: 36415; 71020; 71046; 74177; 80048; 80053; 83605; 85007; 85025; 87040; 87506; 97110; 97116; 97161; 97165; G0378; J1956; J3370; Q9967

== ENCOUNTER → 2020-04-03 09:54 | Outpatient (CLI) | payer MEDICARE, OTHER, SELFPAY ==
--- NOTE | 2020-04-03 09:57 | CA_ITS ---
APPROVED REPORT EXAM: Comprehensive 2D, Doppler, and color-flow Echocardiogram Intranet Support: Sol Scruggs RDCS Ht: 5 ft 3 in Wt: 90lbs BSA: 1.38 BP: 90/58 mmHg Indications: AV DISEASE,HTN 2D Dimensions LVOT 1.71 cm (M/F) 1.5-2.5 M-Mode Dimensions RVDd 2.11 cm (0.9-2.6) LVDd 4.76 cm (3.5-5.7) LVDs 3.18 cm (3.5-5.7) IVSd 0.97 cm (0.6-1.1) PWd 0.77 cm (0.6-1.1) EF (Teich) 61.80% FS 33.20% EDV (Teich) 105.40 mL ESV (Teich) 40.30 mL LV Diastology E/A Ratio 0.79 Aortic Valve LVOT Max 117.00 (70-110 cm/s) LVOT VTI 21.01 cm Mitral Valve MV A Velocity 75.00 (40-130 cm/s) Left Ventricle Left atrium is mildly enlarged, left ventricle is normal size, mild concentric left ventricular hypertrophy, visually estimated ejection fraction 55% with no regional wall motion abnormality, grade 1 diastolic dysfunction seen without tissue Doppler evidence of raise left atrial pressure. Right Ventricle Right atrium and right ventricular normal size and contractility. Aortic Valve Aortic valve is thickened and calcified, leaflet continue to display mobility. There is no aortic stenosis, there is moderate to severe aortic insufficiency. Mitral Valve Mitral valve has mitral calcification, leaflets are minimally thickened. There is mild mitral regurgitation. Tricuspid Valve Tricuspid valve is grossly normal, there is mild tricuspid regurgitation, tricuspid regurgitation jet velocity is inadequate for calculation of the right ventricular systolic pressure. Pulmonic Valve Pulmonic valve is poorly visualized. Great Vessels Aortic root is mildly enlarged. Pericardium No significant pericardial effusion noted. Conclusion 1. Mildly enlarged left atrium, normal left ventricular size, mild concentric left ventricular hypertrophy, visually estimated ejection fraction 55% with no regional wall motion abnormality, grade 1 diastolic dysfunction seen without tissue Doppler evidence of raise left atrial pressure. 2. Thickened and calcified aortic valve without Doppler evidence of aortic stenosis, there is moderate to severe aortic insufficiency present. Aortic root is mildly enlarged. 3. Mild mitral and tricuspid regurgitation. 4. No significant pericardial effusion noted. Electronically signed by : Claude Shelby, 04/04/2020 06:17:43
== END ==
PROVIDERS: PCP Family Medicine; Visit Provider Family Medicine
DX: I35.8 Other nonrheumatic aortic valve disorders (principal)
CPT/HCPCS: 93306

== ENCOUNTER → 2020-10-30 13:12 | Outpatient (CLI) | payer MEDICARE, OTHER, SELFPAY ==
--- NOTE | 2020-10-30 13:32 | XR_ITS ---
PROCEDURE: XR KNEE RT 4V CLINICAL INDICATION: right knee pain; weightbearing COMPARISON: CR [id number] XR knee RT 4V from 10/29/2017 CR [id number] XR knee LT 4V from 10/29/2017 CR XR KNEE LT 4V from 06/01/2019 CR XR KNEE RT 4V from 06/01/2019 FINDINGS: No fracture or dislocation. No lytic or blastic change. There is normal mineralization. Mild osteoarthritic changes are present involving the medial compartment and patellofemoral joint. Cluster small calcific densities noted in the popliteal fossa region medially consistent with loose bodies. Other findings:None. IMPRESSION: Mild osteoarthritis with loose bodies overall not significantly changed Dictated by: Torsten Szymanski MD 10/30/2020 15:04 Torsten Szymanski MD in [place] 10/30/2020 15:04
--- NOTE | 2020-10-30 13:32 | XR_ITS ---
PROCEDURE: XR KNEE LT 4V CLINICAL INDICATION: left knee pain; weightbearing COMPARISON: CR [id number] XR knee RT 4V from 10/29/2017 CR [id number] XR knee LT 4V from 10/29/2017 CR XR KNEE LT 4V from 06/01/2019 CR XR KNEE RT 4V from 06/01/2019 FINDINGS: Moderate to severe osteoarthritic changes are present at the medial compartment and patellofemoral joint. Popliteal fossa loose bodies suspected along with vascular calcification. No acute fracture or dislocation. Other findings:None. IMPRESSION: Moderate to severe osteoarthritis with loose bodies overall not significantly changed Dictated by: Torsten Szymanski MD 10/30/2020 15:05 Torsten Szymanski MD in [facility] 10/30/2020 15:05
== END ==
PROVIDERS: PCP Family Medicine; Visit Provider Orthopaedic Surgery
DX: M17.12 Unilateral primary osteoarthritis, left knee (principal); M17.11 Unilateral primary osteoarthritis, right knee
CPT/HCPCS: 73564

== ENCOUNTER 2020-11-27 11:17 | Emergency (ER) | payer MEDICARE, OTHER, SELFPAY ==
[2020-11-27 11:18] VITALS: BP 153/75; PULSE 107; RESP 18; TEMP 36.4; O2SAT 97; BMI 16.9
--- NOTE | 2020-11-27 11:20 | CT_ITS ---
PROCEDURE: CT HEAD/BRAIN WO CON CLINICAL INDICATION: headache Headache and dizziness COMPARISON: No exams were available for comparison TECHNIQUE: Axial images obtained. All CT scans at the facility use one or more dose reduction, viz: automated exposure control, ma/kV adjustment per patient size (including targeted exams where dose is matched to indication, i.e. head), or iterative reconstruction technique. FINDINGS: No midline shift, mass effect, intracranial hemorrhage, hydrocephalus, or extra-axial fluid collection is evident. There is generalized atrophy with hypoattenuation of the periventricular white matter consistent with microangiopathic changes. Osteopenia of the calvarium. No mastoid effusion. Mild mucosal thickening of the ethmoid sinuses. IMPRESSION: No acute intracranial finding Dictated by: Torsten Szymanski MD 11/27/2020 11:53 Torsten Szymanski MD in [place] 11/27/2020 11:53
--- NOTE | 2020-11-27 11:20 | HMH.EDGENADL ---
ED Disposition Clinical Impression: Fall Qualifiers: Encounter type: initial encounter Qualified Code(s): W19.XXXA - Unspecified fall, initial encounter Disposition: Home, Self-Care Condition on Discharge: Good Referrals: Anthony Vargas MD [Primary Care Provider] - 3 days Time of Disposition: 12:11 - Critical Care Critical Care Time: No Attestation: On , the high probability of a clinically significant, sudden or life threatening deterioration of the following system(s) required my full and direct attention, intervention and personal management. The time I documented below is in addition to time spent performing reported procedures but includes the following listed in this critical care notation. Medical Decision Making - Medical Records Medical records reviewed: Yes: I reviewed the patient's medical records. - Fly Inquiry Pt receiving controlled substance: No Vital Signs: 11/27/20 11:18 Temperature 97.6 F Temperature Source Oral Pulse Rate [Left Radial] 107 H Respiratory Rate 18 Blood Pressure [Right Arm] 153/75 H Blood Pressure Mean [Right Arm] 101 Blood Pressure Source [Right Arm] Automatic Cuff Blood Pressure Position [Right Arm] Sitting 02 Sat by Pulse Oximetry 97 Oxygen Delivery Method Room Air - CT Data CT Scan: Head Time Received: 11:[address] Reviewed: Yes: I have viewed the radiologist's interpretation Preliminary Findings: Normal/NAD - ECG Data Tracing #1 92 beats minute, normal sinus rhythm, normal intervals, no ST elevation or depression, no ectopy. ECG initial impression date: 11/27/20 ECG initial impression time: 10:31 Medical Decision Narrative: 85yo F evaluated after a fall yesterday. The patient was ambulatory into the emergency department out difficulty. Her physical exam is benign. EKG is unremarkable and CT of the head is negative. Patient reports her falls have been mechanical in nature. She denies any rapid heart rate, slow heart rate, skipping beats. Patient takes a sleeping pill and discussed with the patient and family that perhaps she could reduce the dose of her sleeping pill. General Adult HPI - General Stated complaint: AO [id number] fell at home, hit head,dizzy Time Seen by Provider: 11/27/20 11:20 Mode of Arrival: Ambulatory - History of Present Illness HPI narrative: 85yo F presents the emergency department after a fall yesterday at approximately 7:30 in the evening. Patient denies any headache. She complains she still feels mildly groggy this morning. She denies loss of consciousness. She denies nausea/vomiting. Patient states she stepped off the concrete sidewalk accidentally and struck the left posterior side of her head on the concrete sidewalk. Patient reports her last fall was several weeks ago inside her house when she missed stepped as well. Patient does not take blood thinner. - Related Data Home Medications Medication Instructions Recorded Confirmed hydrochlorothiazide 25 mg tablet 25 mg PO DAILY 10/29/17 10/30/20 multivitamin 1 tab PO DAILY tab 01/26/18 10/30/20 pantoprazole 20 mg tablet,delayed 40 mg PO DAILY tab 01/26/18 10/30/20 release Bifidobacterium Infantis [Align] 4 mg PO DAILY 08/20/19 10/30/20 Calcium Carbonate/Vitamin D3 1 each PO 0800,1200 08/20/19 10/30/20 [Calcium 1,000 + D3 Caplet] Temazepam [Restoril 30mg capsule] 30 mg PO HSP PRN 08/20/19 10/30/20 Previous Rx's Medication Instructions Recorded Potassium Chloride 10 meq PO DAILY #30 tablet.er 08/24/19 Vancomycin HCl [Vancocin HCl] 250 mg PO Q6 #40 cap 08/24/19 Allergies Allergy/AdvReac Type Severity Reaction Status Date / Time streptomycin Allergy Intermediate NUMBNESS Verified 10/30/20 14:42 IN FACE homatropine AdvReac Mild NA-NAUSEA; Verified 10/30/20 14:42 [From Hycodan (with ANOREXIA homatropin)] hydrocodone AdvReac Mild NA-NAUSEA; Verified 10/30/20 14:42 [From Hycodan (with ANOREXIA homatropin)] [facility] Histor
--- NOTE | 2020-11-27 11:27 | ECG_ITS ---
APPROVED REPORT Exam: Resting ECG HR:92 bpm ECG Measurements Heart Rate 92 AXES IA 186 P 72 QRSd 90 QRS 60 QT 354 T 83 QTc 437 Conclusion Normal sinus rhythm Possible Left atrial enlargement Left ventricular hypertrophy Cannot rule out Septal infarct, age undetermined Abnormal ECG Electronically signed by : Anthony Bess, 11/29/2020 13:58:50
[2020-11-27 12:20] VITALS: BP 133/62; PULSE 81; RESP 18; TEMP 36.7; O2SAT 99
== END 2020-11-27 12:19 | disposition home or self-care (01) ==
PROVIDERS: Emergency Provider Family Medicine; PCP Family Medicine
DX: R42 Dizziness and giddiness (principal); W01.0XXA Fall on same level from slipping, tripping and stumbling without subsequent striking against object, initial encounter; Y92.480 Sidewalk as the place of occurrence of the external cause; I10 Essential (primary) hypertension; E78.5 Hyperlipidemia, unspecified; I35.0 Nonrheumatic aortic (valve) stenosis; Z79.899 Other long term (current) drug therapy
CPT/HCPCS: 70450; 93005; 99282

== ENCOUNTER → 2020-12-03 10:38 | Outpatient (CLI) | payer MEDICARE, OTHER, SELFPAY ==
--- NOTE | 2020-12-03 10:43 | XR_ITS ---
PROCEDURE: XR LUMBAR SPINE MIN 4V CLINICAL INDICATION: LUMBAGO W/ SCIATICA, LT SIDE COMPARISON: CR LS5 LUMBAR SPINE 5 VIEWS from 05/08/2014 FINDINGS: Lumbar scoliosis convex left which is increased compared to the previous exam. Degenerative disc disease L1-S1 with endplate osteophytes. No fracture or dislocation. No lytic or blastic change. There are facet arthritic changes on the right from L2-L5 and on the left at L4-S1. right lateral osteophytes are present at L2-L3 and L4. Other findings:Postsurgical changes of the pelvis. Mild osteoarthritic change of the hips. IMPRESSION: Degenerative changes with scoliosis. Dictated by: Torsten Szymanski MD 12/03/2020 17:40 Torsten Szymanski MD in [place] 12/03/2020 17:40
== END ==
PROVIDERS: PCP Family Medicine; Visit Provider Family Medicine
DX: M54.42 Lumbago with sciatica, left side (principal)
CPT/HCPCS: 72110

== ENCOUNTER → 2021-08-04 09:08 | Outpatient (CLI) | payer MEDICARE, OTHER, SELFPAY | PROVIDERS: PCP Family Medicine; Visit Provider Nurse Practitioner Family | DX: Z20.822 Contact with and (suspected) exposure to COVID-19 (principal) | CPT/HCPCS: C9803; U0003; U0005 ==

== ENCOUNTER → 2021-08-06 13:42 | Outpatient (CLI) | payer MEDICARE, OTHER, SELFPAY | PROVIDERS: PCP Family Medicine; Visit Provider Nurse Practitioner | DX: Z20.822 Contact with and (suspected) exposure to COVID-19 (principal) | CPT/HCPCS: C9803; U0003; U0005 ==

== ENCOUNTER → 2022-01-15 11:34 | Outpatient (CLI) | payer MEDICARE, OTHER, SELFPAY ==
--- NOTE | 2022-01-15 11:40 | XR_ITS ---
FINAL REPORT CLINICAL HISTORY: knee pain COMPARISON: 10/30/2020 FINDINGS: LEFT KNEE Four views were obtained. There is no acute fracture or dislocation. Mild and moderate degenerative changes are present, worst in the medial compartment. Findings are stable since prior. No joint effusion is identified. There is vascular calcification. IMPRESSION: Stable degenerative changes. Reviewed, Interpreted and Dictated by Darren Blum III, MD Transcribed by Kate Burris [facility]
== END ==
PROVIDERS: PCP Family Medicine; Visit Provider Orthopaedic Surgery
DX: M25.562 Pain in left knee (principal)
CPT/HCPCS: 73564

== ENCOUNTER → 2022-03-25 09:53 | Outpatient (CLI) | payer MEDICARE, OTHER, SELFPAY ==
--- NOTE | 2022-03-25 10:09 | XR_ITS ---
FINAL REPORT CLINICAL HISTORY: hip pain FINDINGS: LEFT HIP Two views of the left hip including an AP pelvis demonstrate no acute fracture or dislocation. There is mild degenerative change of both hips. The visualized bony structures are well aligned. There are vascular calcifications. There are postoperative changes in the pelvis. IMPRESSION: Mild degenerative change of both hips. Reviewed, Interpreted and Dictated by Darren Blum III, MD Transcribed by Cayla Dave Authenticated and [facility]
== END ==
PROVIDERS: PCP Family Medicine; Visit Provider Physician Assistant Surgical
DX: M25.552 Pain in left hip (principal)
CPT/HCPCS: 73502

== ENCOUNTER 2022-04-24 11:00 | Outpatient (RCR) | payer MEDICARE, OTHER, SELFPAY ==
--- NOTE | 2022-02-19 11:22 | HMH.PTOPEV ---
PT Outpatient Evaluation Rehab PT Outpatient Evaluation Start: 02/19/22 10:22 Freq: Status: Active Protocol: Document 02/19/22 10:22 MENG (Rec: 02/19/22 11:22 MENG [id number]) Electronically Signed By Manish Amanda, PT 02/19/22 10:22 Outpatient Therapy Subjective History Subjective History Pt reports h/o chronic left sided LBP, left hip and knee pain. Pt reports exacerbation over the last couple years, ' it's really hard to sit for long, and the more I do the more I hurt.' Pt reports left sided LBP w/referred pain into Left hip/glut/ischial tuberosity area, left anterior thigh pain, and left knee pain with grinding. Pt reports OA in left hip, knee, recent injection in left knee w/o benefit. Chief Complaint Pain,Stiff,Paresthesia Symptom Type Ache,Throb,Dull Symptoms Relieved By Rest/Positioning,Heat,Ice Symptoms Aggravated By Sitting,Standing,Walking Prior Functional Limitations Housework,Standing,Sitting, Walking Current Functional Limitations Housework,Standing,Sitting, Walking Symptom Description Constant but Variable Level of pain today (0-10) 5 Pain scale - at its best (0-10) 5 Pain scale - at its worst (0-10) 9 Lumbopelvic Eval Posture Thoracic Spine Posture Standing Position Flattened Lumbar Spine Posture Standing Position Flattened Assistive device Assistive Devices None / NA Gait Observation General Gait Pattern Observation Antalgic Gait Palapation tenderness left lumbar spinal tenderness Yes: 1/4 paraspinal tenderness Yes: 3/4 buttock tenderness Yes: 3/4 Lumbar/Sacral Palpation Findings Tenderness Accessory Movement L4 left L5 left Manual Muscle Test Left Knee Extension Strength Grade 4 Good Knee Flexion Strength Grade 4 Good Hip Flexion Strength Grade 4- Good- Hip Abduction Strength Grade 3+ Fair+ Hip Adduction Strength Grade 4- Good- Hip External Rotation Strength Grade 4- Good- Hip Internal Rotation Strength Grade 4- Good- Hip Extension Strength Grade 3+ Fair+ Extensor Hallucis Longus Strength Grade 5 Normal Ankle Dorsiflexion Strength Grade 5 Normal Gastronemius/Soleus Strength Grade 5 Normal Hip/Knee Eval Palpation Tenderness left Knee Palpation Finding Tenderness
--- NOTE | 2022-03-25 11:02 | HMH.RHREAS ---
Rehab Reassessment Rehab OP Re-assessment Start: 03/18/22 10:58 Freq: Status: Active Protocol: Document 03/25/22 10:48 MENG (Rec: 03/25/22 11:01 MENG [id number]) Electronically Signed By Manish Amanda, PT 03/25/22 10:48 Rehab Re-assessment Subjective Subjective Pt reports no significant improvements in left hip, left knee pain and pain since I eval. Pt reports 'it doesn't really feel a whole lot better '. Pt reports 6-10 left hip and knee pain w/activity on VAS. Objective Objective Notes PROM: LEFT HIP FLX W/KNEE EXTD 0-70, L HIP IR 0-20, L HIP ER 0-35 MMT: LEFT HIP ABD 4/5, LEFT HIP IR 4+/5, L HIP HIP ER 4+/5 , L KNEE FLX AND EXT 4+/5, L HIP ADD 4/5, L HIP EXT 4/5, L HIP FLX 4/5 TTP: LEFT ISCHIAL TUBEROSITY 3 /4, L KNEE MEDIAL AND LATERAL JT LINE 3/4 Assessment Progress Assessment Slower Than Expected Assessment Notes SLIGHT IMPROVEMENT IN STRENGTH AND TTP Patient goals met STG'S 12/24 LTG'S 09/25 Goals Not Met STG'S 12/24, LTG'S 02/22 Plan Plan Pt to continue w/skilled P.T. to make further improvements in left hip,knee ROM, strength , gait, and TTP to allow for optimal function Frequency of Therapy 1-2x/wk Duration of therapy 3-4wks Time and Billing Re-Eval Time 12 Re-Eval Billing Units 0 PHYSICIAN CERTIFICATION: I certify the specified therapy services for Gabi Chavis are required, authorized, and reviewed every 30 days.
== END 2022-04-24 11:05 | disposition home or self-care (01) ==
LOC: PT 11:00
PROVIDERS: PCP Family Medicine; Visit Provider Orthopaedic Surgery
DX: M25.552 Pain in left hip (principal); M16.12 Unilateral primary osteoarthritis, left hip; M17.12 Unilateral primary osteoarthritis, left knee
CPT/HCPCS: 97010; 97014; 97035; 97110; 97163; 97164; G0283

== ENCOUNTER → 2022-07-16 15:22 | Outpatient (CLI) | payer MEDICARE, OTHER, SELFPAY ==
--- NOTE | 2022-07-16 15:30 | XR_ITS ---
FINAL REPORT CLINICAL HISTORY: FALL IN HOME FINDINGS: Two views of the left tibia-fibula demonstrate no acute fracture or dislocation. There is moderate narrowing of the medial compartment joint space with subchondral sclerosis and osteophyte formation. The visualized bony structures are well aligned. There is mild to moderate vascular calcification. IMPRESSION: No acute process. Reviewed, Interpreted and Dictated by Marco Newman MD Transcribed by Michael Wilkerson Authenticated and [facility]
--- NOTE | 2022-07-16 15:31 | XR_ITS ---
FINAL REPORT CLINICAL HISTORY: FALL AT HOME FINDINGS: 3 views of the left knee were obtained. There is no acute fracture or dislocation. There is moderate narrowing of the medial compartment and patellofemoral joint spaces. There is osteophyte formation along the undersurface of the patella and medial joint margin. There is subchondral sclerosis. There is no soft tissue abnormality. IMPRESSION: No acute process. Reviewed, Interpreted and Dictated by Marco Newman MD Transcribed by Michael Wilkerson Authenticated and [facility]
== END ==
PROVIDERS: PCP Family Medicine; Visit Provider Family Medicine
DX: M25.562 Pain in left knee (principal); M79.662 Pain in left lower leg; W19.XXXA Unspecified fall, initial encounter
CPT/HCPCS: 73562; 73590

== ENCOUNTER 2022-10-23 11:00 | Outpatient (RCR) | payer MEDICARE, OTHER, SELFPAY | END 2022-10-23 11:05 | disposition home or self-care (01) | LOC: PT 11:00 | PROVIDERS: PCP Family Medicine | DX: M25.562 Pain in left knee (principal) | CPT/HCPCS: 97010; 97014; 97033; 97035; 97110; 97112; 97140; 97163; 97164; G0283 ==

== ENCOUNTER 2022-11-26 20:18 | Emergency (ER) | payer MEDICARE, OTHER, SELFPAY ==
[2022-11-26 20:53] VITALS: BP 141/74; PULSE 88; RESP 16; TEMP 36.6; O2SAT 96; BMI 16.9
--- NOTE | 2022-11-26 20:56 | XR_ITS ---
PROCEDURE INFORMATION: Exam: XR Pelvis Exam date and time: 11/26/2022 8:56 PM Age: 87 years old Clinical indication: Injury or trauma; Blunt trauma (contusions or hematomas); Does not apply; Pelvic region; Patient HX: Fall back into wall and slid down to floor TECHNIQUE: Imaging protocol: Radiologic exam of the pelvis. Views: 1 or 2 view. COMPARISON: CR XR HIP LT 2-3V W/PELVIS 03/25/2022 10:15 AM FINDINGS: Bones/joints: Bones appear diffusely demineralized. No focal lytic lesions. No acute fracture or dislocation in the pelvis or hips. Prominent roto levo scoliotic curvature in the lumbar spine with multilevel disc disease, spondylosis and facet arthropathy, see the lumbar spine CT report for detailed lumbar findings. Sacroiliitis. Minimal degenerative changes at the hip joints with small periarticular spurs on the left. Soft tissues: No acute findings. Intraperitoneal space: Surgical sutures in the pelvis. Vasculature: Multiple small rounded calcifications in the pelvis greater on the left are chronic compared with the prior study, likely phleboliths rather than urinary tract stones. Atherosclerotic calcified plaques in the pelvis and lower extremities. IMPRESSION: 1. No acute fracture or dislocation. 2. Osteopenia/osteoporosis. 3. Prominent lumbar degenerative changes. 4. Mild hip arthritis.
--- NOTE | 2022-11-26 20:56 | CT_ITS ---
PROCEDURE INFORMATION: Exam: CT Lumbar Spine Without Contrast Exam date and time: 11/26/2022 9:09 PM Age: 87 years old Clinical indication: Injury or trauma; Patient HX: Fall back into wall and slid down to floor TECHNIQUE: Imaging protocol: Computed tomography of the lumbar spine without contrast. Radiation optimization: All CT scans at this facility use at least one of these dose optimization techniques: automated exposure control; mA and/or kV adjustment per patient size (includes targeted exams where dose is matched to clinical indication); or iterative reconstruction. REPORTING DATA: Count of CT and Cardiac NM exams in prior 12 months: This patient has received 0 known CTs and 0 known cardiac nuclear medicine studies in the 12 months prior to the current study. COMPARISON: CR XR LUMBAR SPINE MIN 4V 12/03/2020 10:44 AM FINDINGS: Bones/joints: No acute fracture. Osteopenia, bones are diffusely demineralized. Chronic endplate deformities compared with 12/03/2020. Hypertrophied lumbar spinous processes with pseudoarthrosis at L3-L4 and L4-L5. Minimal degenerative grade 1 retrolisthesis L2-L3. No high-grade listhesis.There are no lytic skeletal lesions seen. Prominent lumbar levo scoliosis. Mild bilateral sacroiliitis. L1-L2: Mild right lateral disc narrowing and bulging, spondylosis greatest anteriorly and toward the right. Shallow posterior disc bulge. No significant spinal stenosis. Facet arthropathy. Moderate bilateral foraminal narrowing. L2-L3: The disc is severely degenerated and narrowed toward the right with vacuum phenomenon, right posterolateral spondylosis. Disc-osteophyte complex indents the thecal sac. Facet arthropathy more severe on the right. Spinal canal is slightly narrowed. Right neural foramen is at least moderately stenosed. L3-L4: Severe right lateral spondylosis, disc narrowing and vacuum phenomenon. Disc and osteophytes indent the thecal sac and mildly narrow the spinal canal toward the right. Mild foraminal narrowing. L4-L5: There is severe disc narrowing and desiccation with vacuum phenomenon, slight left lateral displacement of L4 and L5, prominent lateral spondylosis worse on the left. Prominent facet arthropathy greater on the left. The central spinal canal is mildly stenosed by bulging disc and posterior hypertrophy, and the L4 foramina are moderately stenosed. L5-S1: Severe left lateral disc narrowing, desiccation with vacuum phenomenon and spondylosis. Facet arthropathy greater on the left. Minimal spinal canal narrowing. Moderate left foraminal stenosis with a horizontal orientation of the foramen and likely impingement on the exiting left L5 nerve root. Gallbladder and bile ducts: Cholecystectomy clips. Spleen: Calcified splenic granulomas. Stomach and bowel: There is diverticulosis coli, without evidence of acute diverticulitis. Soft tissues: Extensive atherosclerotic calcified plaques in the abdomen and pelvis. No paraspinous mass or fluid collection. IMPRESSION: 1. No acute fracture or high-grade listhesis. 2. Lumbar levo scoliosis, prominent multilevel facet arthropathy, disc disease and spondylosis. 3. Mild multilevel spinal stenosis, no severe spinal stenosis. 4. Moderate multilevel foraminal stenoses, greatest at the left L5 foramen. No severe foraminal stenosis. 5. Bones appear diffusely demineralized suggesting osteopenia/osteoporosis. No lytic tumor or metastatic pattern is seen. 6. Additional nonemergency and chronic findings as above.
--- NOTE | 2022-11-26 21:15 | HMH.EDFALL ---
Discharge Plan Disposition Patient Disposition: Home, Self-Care Chief Complaint: Fall Prescriptions Prescriptions: No Action hydrochlorothiazide 25 mg tablet 25 mg PO DAILY multivitamin tablet 1 tab PO DAILY calcium carbonate-vitamin D3 1 EACH tablet 1 each PO 0800,1200 temazepam 30 MG capsule 30 mg PO HSP PRN (Reason: Sleep) potassium chloride 10 MEQ tablet extended release 10 meq PO DAILY Qty: 30 0RF Referrals Follow up/Referrals: Anthony Vargas MD [Primary Care Provider] - See instructions Clinical Impressions Clinical Impression: Fall, Contusion of hip, left, Lumbar sprain Instructions Patient Instructions: DI for Low Back Pain, DI for Hip Pain Discharge ED Provider: Julian (ED),Yayo Gaviria Fall HPI General Chief Complaint: Fall Stated Complaint: ao [id number]@1600@HOME iNJURED lEFT SIDE Time Seen by Provider: 11/26/22 21:15 Mode of Arrival: Wheelchair Source of Information: Patient, Relative and Medical Record Limitations: No Limitations Description of Symptoms (Recalled from ER Triage Doc. by RN): pt states that this afternoon at approx 1600 she fell backwards into her wall and slid onto her bottom. C/O left hip pain and lower back pain. No loss of consciousness. History of Present Illness HPI Narrative: trip type fall and lt hip pain - no other c/o MD complaint: fall Onset (ago): hour(s) Fall from: standing Fall witnessed: no Place fall occurred: home Loss of consciousness: none Prolonged down time: no Symptoms prior to fall: none Context: tripped/slipped Location of injury - extremities: Left: thigh Severity: moderate Associated symptoms (after fall): denies Related Data Home Medications Medication Instructions Recorded Confirmed hydrochlorothiazide 25 mg tablet 25 mg PO DAILY Fluid 10/29/17 02/12/22 multivitamin 1 tab PO DAILY Supplement 01/26/18 02/12/22 calcium carbonate 1,000 mg-vitamin 1 each PO 0800,1200 Supplement 08/20/19 02/12/22 D3 20 mcg (800 unit) tablet temazepam 30 mg capsule 30 mg PO HSP PRN Sleep 08/20/19 02/12/22 Previous Rx's Medication Instructions Recorded potassium chloride 10 mEq 10 meq PO DAILY ##30 08/24/19 tablet,extended release Allergies Allergy/AdvReac Type Severity Reaction Status Date / Time streptomycin Allergy Intermediate NUMBNESS Verified 03/26/22 13:05 IN FACE homatropine AdvReac Mild NA-NAUSEA; Verified 03/26/22 13:05 [From Hycodan (with ANOREXIA homatropin)] hydrocodone AdvReac Mild NA-NAUSEA; Verified 03/26/22 13:05 [From Hycodan (with ANOREXIA homatropin)] [facility] Disclaimer: The information contained in this section may have been updated after the patient was seen, as this information can be updated by other users. Social History Smoking Status: Never smoker alcohol intake: never substance use type: denies use current occupational status: retired Travel in the last 8 weeks: None household members: other housing: apartment ROS Obtained: Yes All systems reviewed & no additional complaints except as documented Physical Exam General General appearance: alert Head Head exam: normocephalic Eye Eye exam: Present PERRL and EOMI ENT ENT exam: Present mucous membranes moist Neck Neck exam: Present trachea midline Respiratory Respiratory exam: Absent respiratory distress Cardiovascular Cardiovascular exam: Present regular rate Abdominal Exam Abdominal exam: Present soft Extremities Exam Extremities exam: Present full ROM Expanded Lower Extremity Exam Left: Hip/Pelvis exam: Present pelvis stable, pain on hip/pelvis palpation and hip pain on leg movement Back Exam Back exam: Present tenderness; Absent full ROM Neurological Exam Neurological exam: Present alert, oriented X3 and CN II-XII intact; Absent motor sensory deficit Psychiatric Psychiatric exam: Present normal affect Skin Skin exam: Absent rash Medical Decision Making Medical Re
[2022-11-27 00:38] VITALS: BP 168/74; PULSE 70; RESP 18; TEMP 36.9; O2SAT 99
== END 2022-11-27 00:40 | disposition home or self-care (01) ==
PROVIDERS: Emergency Provider Emergency Medicine; PCP Family Medicine
DX: S39.002A Unspecified injury of muscle, fascia and tendon of lower back, initial encounter (principal); S70.02XA Contusion of left hip, initial encounter; W01.0XXA Fall on same level from slipping, tripping and stumbling without subsequent striking against object, initial encounter
CPT/HCPCS: 72131; 72170; 99284

== ENCOUNTER 2022-12-23 12:14 | Emergency (ER) | payer MEDICARE, OTHER, SELFPAY ==
[2022-12-23 12:15] VITALS: BP 155/67; PULSE 81; RESP 18; TEMP 37.5; O2SAT 97; BMI 16.9
--- NOTE | 2022-12-23 12:37 | XR_ITS ---
FINAL REPORT CLINICAL HISTORY: globus sensation, concern strawberry is stuck FINDINGS: There are underlying emphysematous changes. No acute pulmonary density is present. No significant pleural effusion. There is no pneumothorax. The heart is normal in size. The mediastinum is unremarkable. Moderate scoliosis is noted. IMPRESSION: Emphysema without acute process. Reviewed, Interpreted and Dictated by Khadar Beckman MD Transcribed by Luzma Saini Authenticated and [facility]
--- NOTE | 2022-12-23 12:37 | XR_ITS ---
FINAL REPORT CLINICAL HISTORY: globus sensation, concern strawberry is stuck FINDINGS: Two views were obtained. Airway appears patent. The epiglottis is normal. No obvious radiopaque foreign body is identified. No acute fracture or malalignment. Precervical soft tissues are unremarkable. IMPRESSION: No acute findings. No obvious radiopaque foreign body identified. Reviewed, Interpreted and Dictated by Khadar Beckman MD Transcribed by Luzma Saini Authenticated and [facility]
--- NOTE | 2022-12-23 12:58 | HMH.EDGENADL ---
Discharge Plan Disposition Patient Disposition: Home, Self-Care Condition: Good Prescriptions Prescriptions: No Action hydrochlorothiazide 25 mg tablet 25 mg PO DAILY multivitamin tablet 1 tab PO DAILY calcium carbonate-vitamin D3 1 EACH tablet 1 each PO 0800,1200 temazepam 30 MG capsule 30 mg PO HSP PRN (Reason: Sleep) potassium chloride 10 MEQ tablet extended release 10 meq PO DAILY Qty: 30 0RF Referrals Follow up/Referrals: Anthony Vargas MD [Primary Care Provider] - See instructions Activity Restrictions/Add. Instructions Additional Instructions/Restrictions: You were evaluated in the emergency department today. Please call your primary care provider and let them know that you were evaluated here. I recommend very close outpatient follow-up with them. I also recommend close outpatient follow-up with GI given your history of esophageal stricture. Orally hydrate is much as possible. Return to the emergency department for any new or worsening symptoms. Clinical Impressions Clinical Impression: Sensation of foreign body in esophagus Dysphagia Qualifiers: Dysphagia type: unspecified Qualified Code(s): R13.10 - Dysphagia, unspecified Instructions Patient Instructions: DI for Foreign Body, Swallowed-Adult, DI for Esophageal Dysphagia Discharge ED Provider: Kinjal Garza General Adult HPI General Chief complaint: Skin/Abscess/Foreign Body Stated complaint: Trouble swallowing Time Seen by Provider: 12/23/22 12:24 Mode of Arrival: Ambulatory Source of Information: Patient and Relative Limitations: No Limitations Description of Symptoms (Recalled from ER Triage Doc. by RN): c/o having trouble swallowing, pt states she ate breakfast fine, she ate a few strawberries a couple hours ago and she felt like it got stuck but was able to get it down, she is able to take some liquid in, the roof of her mouth in the back feels weird. History of Present Illness HPI narrative: This patient is an 87-year-old female who reports a history of esophageal stricture requiring dilation in the past presenting to the emergency department with concern for foreign body sensation in her throat. She states that she ate breakfast fine but ate strawberries a few hours ago and felt like a strawberry got stuck. She states that she feels like it is still there. She tried to take some sips of water after this, but she states that it feels like it did not all go down. She states that the back of her throat feels weird at this time. She denies any recent fevers, chills, neck swelling, chest pain, shortness of breath, abdominal pain, nausea, vomiting, or other concerns. Related Data Home Medications Medication Instructions Recorded Confirmed hydrochlorothiazide 25 mg tablet 25 mg PO DAILY Fluid 10/29/17 02/12/22 multivitamin 1 tab PO DAILY Supplement 01/26/18 02/12/22 calcium carbonate 1,000 mg-vitamin 1 each PO 0800,1200 Supplement 08/20/19 02/12/22 D3 20 mcg (800 unit) tablet temazepam 30 mg capsule 30 mg PO HSP PRN Sleep 08/20/19 02/12/22 Previous Rx's Medication Instructions Recorded potassium chloride 10 mEq 10 meq PO DAILY ##30 08/24/19 tablet,extended release Allergies Allergy/AdvReac Type Severity Reaction Status Date / Time streptomycin Allergy Intermediate NUMBNESS Verified 03/26/22 13:05 IN FACE homatropine AdvReac Mild NA-NAUSEA; Verified 03/26/22 13:05 [From Hycodan (with ANOREXIA homatropin)] hydrocodone AdvReac Mild NA-NAUSEA; Verified 03/26/22 13:05 [From Hycodan (with ANOREXIA homatropin)] [facility] Disclaimer: The information contained in this section may have been updated after the patient was seen, as this information can be updated by other users. 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
[2022-12-23 13:05] LABS: Basophils % 0.4 % (0.1-2.0); Eosinophils # 0.2 K/mm3 (0.0-0.4); Eosinophils % 2.2 % (0.1-12.0); Hematocrit 35.8 % (37.0-47.0); Hemoglobin 11.5 g/dL (12.2-16.2); Lymphocytes # 1.4 K/mm3 (0.7-4.5); Lymphocytes % 17.1 % (10-50); Mean Corpuscular HGB Conc 32.3 g/dL (31.8-35.4); Mean Corpuscular Hemoglobin 32.7 pg (27.0-31.2); Mean Corpuscular Volume 101.5 fl (81-99); Mean Platelet Volume 7.6 fl (7.4-10.4); Monocytes # 0.3 K/mm3 (0.1-1.0); Monocytes % 4.3 % (1.7-9.3); Neutrophils % 76.1 % (37.0-80.0); Platelet Count 305 K/mm3 (142-424); Red Blood Count 3.52 M/mm3 (4.20-5.40); Red Cell Distribution Width 12.6 % (11.5-17.5); White Blood Count 7.9 K/mm3 (4.8-10.8)
[2022-12-23 13:06] LABS: Chloride 94 mmol/L (98-107); Sodium 139 mmol/L (136-145)
[2022-12-23 13:07] LABS: Potassium 3.4 mmoL/L (3.5-5.1)
[2022-12-23 13:09] LABS: Alanine Aminotransferase 15 U/L (12-78); Alkaline Phosphatase 83 U/L (38-126); Anion Gap 12.4 mEq/L (5-15); Aspartate Amino Transferase 21 U/L (14-36); Bilirubin,Total 0.2 mg/dl (0.2-1.3); Blood Urea Nitrogen 18 mg/dl (7-17); Carbon Dioxide 36 mmol/L (22.0-30.0); Creatinine Clearance Estimated 27 mL/min (50-200); Estimated Glomerular Filt Rate 79 ml/min (>60); GFR (African American) 96 ML/MIN (>60)
[2022-12-23 13:10] LABS: Albumin/Globulin Ratio 1.4 (1.1-1.8); Calcium 9.6 mg/dl (8.4-10.2); Globulin 2.8 g/dL (1.3-3.2); Glucose 97 mg/dl (74-100); Total Protein,Serum 6.8 g/dl (6.3-8.2)
[2022-12-23 13:30] VITALS: BP 161/68; PULSE 72; O2SAT 97
[2022-12-23 14:00] VITALS: BP 156/74; PULSE 65; O2SAT 98
[2022-12-23 14:30] VITALS: BP 169/67; PULSE 74; O2SAT 97
[2022-12-23 14:51] VITALS: BP 169/69; PULSE 92; RESP 18; TEMP 36.8; O2SAT 97
== END 2022-12-23 14:52 | disposition home or self-care (01) ==
PROVIDERS: Emergency Provider Emergency Medicine; PCP Family Medicine
DX: R13.10 Dysphagia, unspecified (principal)
CPT/HCPCS: 70360; 71046; 80053; 85025; 99284; 99285

== ENCOUNTER 2023-03-26 11:16 | Emergency (ER) | payer MEDICARE, OTHER, SELFPAY ==
[2023-03-26 11:17] VITALS: BP 157/82; PULSE 101; RESP 18; TEMP 36.7; O2SAT 96; BMI 17.2
[2023-03-26 11:37] LABS: Microscopic, Urine URINE MICROSCOPIC (MICROSCOPIC)
[2023-03-26 11:41] LABS: Appearance,Urine CLEAR (Clear); Bilirubin,Urine Negative (Negative); Blood, Urine 1+ (Negative); Color,Urine YELLOW (Yellow); Glucose,Urine (UA) Negative (Negative); Ketones,Urine Negative (Negative); Leukocyte Esterase,Urine 2+ (Negative); Nitrate,Urine Negative (Negative); Protein,Urine Negative (Negative); Urobilinogen,Urine 0.2 EU/dl (0.2)
--- NOTE | 2023-03-26 12:32 | EXP.UTC ---
Discharge Plan Disposition Patient Disposition: Home, Self-Care Condition: Good Prescriptions Prescriptions: New cefdinir 300 mg capsule 300 mg PO BID Qty: 20 0RF No Action hydrochlorothiazide 25 mg tablet 25 mg PO DAILY multivitamin tablet 1 tab PO DAILY calcium carbonate-vitamin D3 1 EACH tablet 1 each PO 0800,1200 temazepam 30 MG capsule 30 mg PO HSP PRN (Reason: Sleep) potassium chloride 10 MEQ tablet extended release 10 meq PO DAILY Qty: 30 0RF Referrals Follow up/Referrals: Anthony Vargas MD [Primary Care Provider] - See instructions Activity Restrictions/Add. Instructions Additional Instructions/Restrictions: *Increase fluids. Water not Soda or Tea *Start antibiotic immediately and be sure to take as ordered for the FULL length of time although you should start to see improvement over the next 48 hours *Be SURE to follow up anytime for new or worsening symptoms with your family doctor. AND in 48 hours for urine culture results with your family doctor, if you do not have a doctor then you may call back to the [facility] for urine culture results and further treatment. We do recommend that you choose and establish care with a Primary Care Physician. ?AND follow up with them ?in 10-14 days to repeat UA to ensure infection is resolved and blood no longer present *Be sure to let your PCP know that we sent urine cultures from the [facility] so they can follow up to ensure that you area the on the correct antibiotic Call your doctor office and make appointment for 48 hours (2 days from today) ?to follow up and get the results of your urine culture and further treatment [phone] Clinical Impressions Clinical Impression: UTI (urinary tract infection) Qualifiers: Urinary tract infection type: site unspecified Hematuria presence: with hematuria Qualified Code(s): N39.0 - Urinary tract infection, site not specified Instructions Patient Instructions: Urinary Tract Infection, DI for Urinary Tract Infection (UTI), Cefdinir Discharge ED Provider: Belle Perla [facility] [place] General Stated complaint: discharge when urinates, feeling rundown Mode of Arrival: Ambulatory Source of Information: Patient Limitations: No Limitations Time Seen by Provider: 03/26/23 12:32 Description of Symptoms (Recalled from Triage Doc. by RN): Patient reports discharge and urinating alot since yesterday. HEENT Symptoms (Recalled from RN notes): No Resp Symptoms (Recalled from RN notes): No Skin Symptoms (Recalled from RN notes): No MS Symptoms (Recalled from RN notes): No Functional Status (Recalled from RN notes): wnl History of Present Illness Provider Complaint: Patient states that she has been urinating more frequently than normal and had some galindo colored discharge on and off for a couple of days which has stopped now but she wanted to get checked for UTI Related Data Home Medications Medication Instructions Recorded Confirmed hydrochlorothiazide 25 mg tablet 25 mg PO DAILY Fluid 10/29/17 02/12/22 multivitamin 1 tab PO DAILY Supplement 01/26/18 02/12/22 calcium carbonate 1,000 mg-vitamin 1 each PO 0800,1200 Supplement 08/20/19 02/12/22 D3 20 mcg (800 unit) tablet temazepam 30 mg capsule 30 mg PO HSP PRN Sleep 08/20/19 02/12/22 Previous Rx's Medication Instructions Recorded potassium chloride 10 mEq 10 meq PO DAILY ##30 08/24/19 tablet,extended release cefdinir 300 mg capsule 300 mg PO BID #20 caps 03/26/23 Allergies Allergy/AdvReac Type Severity Reaction Status Date / Time streptomycin Allergy Intermediate NUMBNESS Verified 03/26/22 13:05 IN FACE homatropine AdvReac Mild NA-NAUSEA; Verified 03/26/22 13:05 [From Hycodan (with ANOREXIA homatropin)] hydrocodone AdvReac Mild NA-NAUSEA; Verified 03/26/22 13:05 [From Hycodan (with ANOREXIA homatropin)] Worker's Comp Is this a Worker's Comp case?: No [facility] Disclaimer: The information contained in
[2023-03-26 12:49] LABS: Bacteria,Urine 4+ /lpf; Squamous Epithelial Cell,Urine Occasional #/hpf (0-5); WBC,Urine Occasional #/hpf (0-3)
[2023-03-26 13:18] VITALS: BP 157/82; PULSE 101; RESP 18; TEMP 36.7; O2SAT 96
== END 2023-03-26 13:19 | disposition home or self-care (01) ==
PROVIDERS: Emergency Provider Nurse Practitioner; PCP Family Medicine
DX: N39.0 Urinary tract infection, site not specified (principal); B96.89 Other specified bacterial agents as the cause of diseases classified elsewhere; R31.9 Hematuria, unspecified
CPT/HCPCS: 81001; 87086; 87088; 87186; 99204; 99212; G0463

== ENCOUNTER → 2023-06-15 12:18 | Outpatient (CLI) | payer MEDICARE, OTHER, SELFPAY ==
[2023-06-15 12:43] LABS: Basophils % 0.5 % (0.1-2.0); Eosinophils # 0.1 K/mm3 (0.0-0.4); Eosinophils % 1.2 % (0.1-12.0); Hematocrit 42.4 % (37.0-47.0); Lymphocytes # 1.2 K/mm3 (0.7-4.5); Lymphocytes % 22.1 % (10-50); Mean Corpuscular Hemoglobin 33.5 pg (27.0-31.2); Mean Corpuscular Volume 101.7 fl (81-99); Mean Platelet Volume 7.7 fl (7.4-10.4); Monocytes # 0.3 K/mm3 (0.1-1.0); Neutrophils % 71.2 % (37.0-80.0); Platelet Count 267 K/mm3 (142-424); Red Blood Count 4.17 M/mm3 (4.20-5.40); Red Cell Distribution Width 13.6 % (11.5-17.5); White Blood Count 5.6 K/mm3 (4.8-10.8)
[2023-06-15 13:09] LABS: Alanine Aminotransferase 16 U/L (12-78); Albumin Level 4.7 g/dl (3.5-5.0); Albumin/Globulin Ratio 1.4 (1.1-1.8); Alkaline Phosphatase 101 U/L (38-126); Aspartate Amino Transferase 28 U/L (14-36); Bilirubin,Total 0.2 mg/dl (0.2-1.3); Blood Urea Nitrogen 14 mg/dl (7-17); Calcium 10.5 mg/dl (8.4-10.2); Carbon Dioxide 35 mmol/L (22.0-30.0); Chloride 97 mmol/L (98-107); Estimated Glomerular Filt Rate 117 ml/min (>60); GFR (African American) 141 ML/MIN (>60); Globulin 3.4 g/dL (1.3-3.2); Glucose 105 mg/dl (74-100); Sodium 140 mmol/L (136-145); Total Protein,Serum 8.1 g/dl (6.3-8.2)
== END ==
PROVIDERS: PCP Internal Medicine Adolescent Medicine; Visit Provider Internal Medicine Adolescent Medicine
DX: R10.84 Generalized abdominal pain (principal); R15.9 Full incontinence of feces
CPT/HCPCS: 36415; 80053; 85025

== ENCOUNTER → 2023-06-23 08:31 | Outpatient (CLI) | payer MEDICARE, OTHER, SELFPAY ==
--- NOTE | 2023-06-23 08:36 | CT_ITS ---
FINAL REPORT TECHNIQUE: Thin section axial images were obtained through the abdomen after intravenous contrast. Reconstruction images were obtained from the axial data. Exam was performed using dose reduction techniques. CLINICAL HISTORY: ABDOMINAL PAIN FINDINGS: There is a 5 mm nodule in the right middle lobe.. There is a subcentimeter hypodense lesion in the left hepatic lobe that is likely benign. The gallbladder is absent. . The spleen, adrenal glands, and pancreas are unremarkable. There is a right renal cyst. There is no hydronephrosis. Abdominal GI tract is without acute abnormality. There is no abdominal lymphadenopathy or ascites. The pelvic solid organs are unremarkable. The appendix is not identified. There are no secondary signs suggesting appendicitis. There is moderate retained stool. There is colonic diverticulosis without evidence of diverticulitis. There has been hysterectomy.. There is no pelvic lymphadenopathy or ascites. No acute osseous abnormalities identified. IMPRESSION: Constipation. 5 mm right middle lobe nodule. Recommend 6-12-month follow-up chest CT Reviewed, Interpreted and Dictated by Sobeida Esteves MD Transcribed by Michael Wilkerson Authenticated and [facility]
== END ==
PROVIDERS: PCP Internal Medicine Adolescent Medicine; Visit Provider Internal Medicine Adolescent Medicine
DX: R10.84 Generalized abdominal pain (principal); R15.9 Full incontinence of feces; N89.8 Other specified noninflammatory disorders of vagina
CPT/HCPCS: 74177; Q9967

== ENCOUNTER 2023-06-25 13:00 | Outpatient (RCR) | payer MEDICARE, OTHER, SELFPAY | END 2023-06-25 14:20 | disposition home or self-care (01) | LOC: PT 13:00 | PROVIDERS: PCP Family Medicine; Visit Provider Student in an Organized Health Care Education/Training Program | DX: M25.561 Pain in right knee (principal); M25.562 Pain in left knee; M25.572 Pain in left ankle and joints of left foot; M62.81 Muscle weakness (generalized); R26.9 Unspecified abnormalities of gait and mobility | CPT/HCPCS: 20560; 97010; 97014; 97035; 97110; 97112; 97163; 97164; 97530; G0283 ==

== ENCOUNTER 2023-11-30 10:22 | Outpatient (CLI) | payer MEDICARE, OTHER, SELFPAY ==
--- NOTE | 2023-11-30 10:30 | XR_ITS ---
FINAL REPORT CLINICAL HISTORY: MIDLINE LOW BACK PAIN, RT SCIATICA COMPARISON: 12/03/2020 FINDINGS: AP, lateral, and oblique views of the lumbar spine were obtained. There is no acute fracture or acute malalignment. There is 30 degrees of levoscoliosis present. Vertebral body height is preserved. There is significant disc space narrowing of the L2-3 through L5-S1 discs. No acute paraspinal abnormality is identified. The overall appearance is not significantly changed since the prior films of 2020. IMPRESSION: Multilevel degenerative change with 30 degrees of levoscoliosis, stable since the prior Reviewed, Interpreted and Dictated by Marco Newman MD Transcribed by Marjorie Boland Authenticated and [facility]
== END 2023-11-30 23:59 | disposition home or self-care (01) ==
LOC: RAD 10:24
PROVIDERS: PCP Nurse Practitioner Family; Visit Provider Nurse Practitioner Family
DX: M54.41 Lumbago with sciatica, right side (principal)
CPT/HCPCS: 72110

== ENCOUNTER 2024-02-02 13:00 | Outpatient (RCR) | payer MEDICARE, OTHER, SELFPAY | END 2024-02-02 13:05 | disposition home or self-care (01) | LOC: PT 13:00 | PROVIDERS: PCP Internal Medicine Adolescent Medicine; Visit Provider Student in an Organized Health Care Education/Training Program | DX: M25.562 Pain in left knee (principal); M25.572 Pain in left ankle and joints of left foot | CPT/HCPCS: 20560; 20561; 97010; 97014; 97035; 97110; 97163; 97164; G0283 ==

== ENCOUNTER 2024-04-24 11:43 | Emergency (ER) | payer MEDICARE, OTHER, SELFPAY ==
[2024-04-24 11:46] VITALS: BP 155/70; PULSE 73; RESP 16; TEMP 37.1; O2SAT 98; BMI 17.3
--- NOTE | 2024-04-24 12:01 | HMH.EDGENADL ---
Discharge Plan Disposition Patient Disposition: Home, Self-Care Condition: Good Prescriptions Prescriptions: No Action hydrochlorothiazide 12.5 mg tablet 12.5 mg PO DAILY Linzess 72 mcg capsule 72 mcg PO DAILY Patient Comments: TAKE 1 CAPSULE BY MOUTH ONCE DAILY temazepam 15 mg capsule 15 mg PO HS Patient Comments: TAKE 1 CAPSULE BY MOUTH AT BEDTIME diltiazem HCl 120 mg tablet 120 mg PO ONCE Patient Comments: TAKE 1 TABLET BY MOUTH THREE TIMES DAILY diclofenac sodium 1 % gel topical QID PRN Patient Comments: APPLY TOPICALLY TO AFFECTED AREA 4 TIMES DAILY FOR KNEE/ANKLE PAIN DIRECTED Align 4 mg capsule 4 mg PO DAILY estradiol [Estrace] 0.01 % (0.1 mg/gram) cream 0.5 appful vaginal DAILY Qty: 42.5 2RF Rx Instructions: Use a blueberry sized portion of cream in the vagina twice weekly. multivitamin tablet 1 tab PO DAILY calcium carbonate-vitamin D3 1 EACH tablet 1 each PO 0800,1200 Referrals Follow up/Referrals: Alecia Ferrer APRN [Primary Care Provider] - See instructions Activity Restrictions/Add. Instructions Additional Instructions/Restrictions: As we discussed, your CT scans did not show any head bleed or any broken bone. You were stable for discharge at this time. Please return with any new or worsening symptoms. Clinical Impressions Clinical Impression: Closed head injury Qualifiers: Encounter type: initial encounter Qualified Code(s): S09.90XA - Unspecified injury of head, initial encounter Instructions Patient Instructions: DI for Concussion, DI for Closed Head Injury Print Language Print Language: Marshallese Discharge ED Provider: Derek Retana Adult HPI General Chief complaint: Head Injury Stated complaint: AO 10 04/24 hit on head with trunk lid Time Seen by Provider: 04/24/24 11:59 History of Present Illness HPI narrative: The patient presents with a chief complaint of head injury after accidentally hitting her head on a tailgate. The incident occurred at 10 o'clock. She reports no bleeding from the head but mentions a pre-existing knot that has increased in size since the injury. She denies experiencing any loss of consciousness, nausea, or vomiting. She is not currently on any blood thinners and reports no neck pain. She has not taken any pain medication but may consider Tylenol later. She mentions needing help to pull down the tailgate. The injury occurred while the tailgate was being lowered. She is agreeable to getting a CT scan of the head as recommended by the doctor. Please note that above description of symptoms, in this electronic medical record under categorization of recalled from ER triage doctor by RN are reflective of an initial nursing assessment, however, is not reflective of my full history and physical exam that was personally taken and clarified. Consequentially, this preceding description of symptoms, which may include the patient's categorized chief complaint in the EMR, do not reflect my personal clinical impression, and the ultimate description of history of present illness and patient stated complaints should be deferred to this section of the note. Unless stated otherwise or congruent with this section of the note, additional signs, symptoms, or incongruence should be interpreted as inaccurate with my clinical impression. Related Data Home Medications ?Medication ?Instructions ?Recorded ?Confirmed multivitamin 1 tab PO DAILY Supplement 01/26/18 06/30/23 calcium carbonate 1,000 mg-vitamin 1 each PO 0800,1200 Supplement 08/20/19 06/30/23 D3 20 mcg (800 unit) tablet Bifidobacterium infantis 4 mg 4 mg PO DAILY 06/30/23 06/30/23 capsule (Align) diclofenac sodium 1 % topical gel topical QID PRN 06/30/23 06/30/23 diltiazem HCl 120 mg tablet 120 mg PO ONCE 06/30/23 06/30/23 hydrochlorothiazide 12.5 mg tablet 12.5 mg PO DAILY 06/30/23 06/30/23 linaclotide 72 mcg capsule 72 mcg PO DAILY 06/30/23 06/30/23 (Linzess) temazepam 15 mg capsule 15 mg PO HS 06/30/23 06/30/23 Previous Rx's ?Medication ?Instructions ?Recorded estradiol 0.01% (0.1 mg/gram) 0.5 appful vaginal DAILY #42.5 07/13/23 vaginal cream (Estrace) grams Allergies Allergy/AdvReac Type Severity Reaction Status Date / Time streptomycin Allergy Intermediate NUMBNESS Verified 06/30/23 14:29 IN FACE homatropine AdvReac Mild NA-NAUSEA; Verified 06/30/23 14:29 [From Hycodan (with ANOREXIA homatropin)] hydrocodone AdvReac Mild NA-NAUSEA; Verified 06/30/23 14:29 [From Hycodan (with ANOREXIA homatropin)] PFSH PFSH Disclaimer: The information contained in this section may have been updated after the patient was seen, as this information can be updated by other users. Medical History (Updated 04/24/24 @ 14:30 by Derek Retana MD) Fistula of vagina Surgical History (Updated 06/30/23 @ 14:36 by Linda Morales CMA) History of hernia repair H/O total hysterectomy History of tonsillectomy Social History Smoking Status: Never smoker alcohol intake: never substance use type: denies use current occupational status: retired Travel in the last 8 weeks: None household members: other housing: apartment ROS Obtained: Yes other As per HPI Physical Exam General General appearance: alert and in no apparent distress Head Head exam: atraumatic and normocephalic Eye Eye exam: Present normal appearance Neck Neck exam: Present normal inspection Chest Chest inspection: Present normal inspection and symmetric chest wall rise Respiratory Respiratory exam: Present normal lung sounds bilaterally; Absent respiratory distress Cardiovascular Cardiovascular exam: Present regular rate and normal rhythm Abdominal Exam Abdominal exam: Present soft Neurological Exam Neurological exam: Present alert and oriented X3 Psychiatric Psychiatric exam: Present normal affect and normal mood Skin Skin exam: Present warm and dry Medical Decision Making Medical Records Medical records reviewed: Yes I reviewed the patient's medical records. Fly Inquiry Pt receiving controlled substance: No Vital Signs: 04/24/24 11:46 04/24/24 14:34 Temperature 98.7 F 98.0 F Temperature Source Oral Pulse Rate 79 Pulse Rate [Right] 73 Respiratory Rate 16 20 Blood Pressure 110/80 Blood Pressure [Right Arm] 155/70 H Blood Pressure Mean [Right Arm] 98 02 Sat by Pulse Oximetry 98 Oxygen Delivery Method Room Air Room Air Orders (Tests/Meds): ORDERS Category Date Time Status CT cervical spine wo con Stat Cat Scan 04/24/24 12:[address] head/brain wo con Stat Cat Scan 04/24/24 12:31 Completed Medical Decision Narrative: Patient with history and exam per above presenting for evaluation of closed head injury Diagnoses considered include intracranial hemorrhage, cervical spinal fracture, there is ED workup and treatment included: ORDERS Category Date Time Status CT cervical spine wo con Stat Cat Scan 04/24/24 12:[address] head/brain wo con Stat Cat Scan 04/24/24 12:31 Completed Imaging was independently visualized and interpreted by me, significant for no acute findings Please refer to radiology report for full details. I discussed my clinical impression with patient and answered all questions. At this time, the evidence for any other entities in the differential is insufficient to warrant any further testing or ED observation. This was explained to the patient. The patient was advised that persistent or worsening symptoms require further evaluation. Critical Care Critical Care Time Critical Care Time: No
--- NOTE | 2024-04-24 12:30 | PC.NURSE ---
DR ARCHULETA AT BEDSIDE
--- NOTE | 2024-04-24 12:31 | CT_ITS ---
PROCEDURE INFORMATION: Exam: CT Head Without Contrast Exam date and time: 04/24/2024 1:28 PM Age: 88 years old Clinical indication: Injury or trauma; Other: Axial injury to top of head with trunk latch; Blunt trauma (contusions or hematomas) TECHNIQUE: Imaging protocol: Computed tomography of the head without contrast. Radiation optimization: All CT scans at this facility use at least one of these dose optimization techniques: automated exposure control; mA and/or kV adjustment per patient size (includes targeted exams where dose is matched to clinical indication); or iterative reconstruction. COMPARISON: CT HEAD/BRAIN WO CON 11/27/2020 11:32 AM FINDINGS: Brain: Central and cortical brain atrophy evident, appropriate for patient age. 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 No acute intracranial hemorrhage. Cerebral ventricles: No ventriculomegaly. Paranasal sinuses: Visualized sinuses are unremarkable. No fluid levels. Mastoid air cells: Visualized mastoid air cells are well aerated. Bones: Unremarkable. No acute fracture. Soft tissues: Soft tissue swelling over the frontal bone to the left of midline. IMPRESSION: No acute intracranial abnormality.
--- NOTE | 2024-04-24 12:32 | CT_ITS ---
PROCEDURE INFORMATION: Exam: CT Cervical Spine Without Contrast Exam date and time: 04/24/2024 1:31 PM Age: 88 years old Clinical indication: Injury or trauma; Other: Axial injury to top of head with trunk latch; Blunt trauma; Additional info: Axial injury to top of head with car trunk latch TECHNIQUE: Imaging protocol: Computed tomography of the cervical spine without contrast. Radiation optimization: All CT scans at this facility use at least one of these dose optimization techniques: automated exposure control; mA and/or kV adjustment per patient size (includes targeted exams where dose is matched to clinical indication); or iterative reconstruction. COMPARISON: CT CERVICAL SPINE WO CON 07/22/2019 12:04 AM FINDINGS: Bones: No acute fracture. 2 mm anterolisthesis at C2-C3 and C4-C5. Moderate disc space narrowing with partial osseous fusion at C5-C6. No significant disc bulge or herniation. No severe spinal canal stenosis. Multilevel facet arthropathy with associated foraminal stenosis. Lungs: Lung apices are normal. Soft tissues: Unremarkable. IMPRESSION: No acute findings.
[2024-04-24 14:34] VITALS: BP 110/80; PULSE 79; RESP 20; TEMP 36.7; O2SAT 96
== END 2024-04-24 14:36 | disposition home or self-care (01) ==
PROVIDERS: Emergency Provider Emergency Medicine; PCP Nurse Practitioner Family
DX: S09.90XA Unspecified injury of head, initial encounter (principal); W22.8XXA Striking against or struck by other objects, initial encounter
CPT/HCPCS: 70450; 72125; 99284

== ENCOUNTER 2024-05-02 08:45 | Outpatient (CLI) | payer MEDICARE, OTHER, SELFPAY ==
--- NOTE | 2024-05-02 08:54 | FL_ITS ---
FINAL REPORT CLINICAL HISTORY: dysphagia ft 1:21 dap 180.85 FINDINGS: ESOPHAGRAM HISTORY: Dysphagia. PROCEDURE: The patient ingested barium. Effervescent crystals were also administered. Fluoroscopic spot films were obtained. Fluoro time: 1 minute 21 seconds DAP: 180.85 uGy.m2 Images: 12 FINDINGS: The examination is limited as the patient silently aspirated. No esophageal stricture is identified. A 13 mm barium tablet passes through the esophagus and into the stomach without delay. Esophageal dysmotility was demonstrated during the exam. IMPRESSION: Limited exam secondary to aspiration. Esophageal dysmotility. No esophageal stricture identified. Films reviewed , interpreted and dictated by Dr. Sobeida Esteves. Transcribed by Steven Bender PA-C. Reviewed, Interpreted and Dictated by Sobeida Esteves MD Transcribed by DARIEL Bond Authenticated and [facility]
[2024-05-02] MEDS: BARIUM SULFATE(LIQUID E-Z-PAQUE);355ML BOTTLE 355 ML PO (09:20)
[2024-05-02] MEDS: E-Z-GASII EFFERVESCENT GRANULES;1PK 1 EACH PO (09:20)
[2024-05-02] MEDS: BARIUM SULFATE (E-Z-HD 340GM);135ML BOTTLE 135 ML PO (09:20)
== END 2024-05-02 23:59 | disposition home or self-care (01) ==
LOC: RAD 08:45
PROVIDERS: PCP Nurse Practitioner Family; Visit Provider Internal Medicine Adolescent Medicine
DX: R13.19 Other dysphagia (principal)
CPT/HCPCS: 74220

== ENCOUNTER 2024-06-01 10:41 | Outpatient (CLI) | payer MEDICARE, OTHER, SELFPAY ==
--- NOTE | 2024-06-01 10:45 | FL_ITS ---
FINAL REPORT CLINICAL HISTORY: Esophageal dysphagia 3:14 FLUORO TIME 160.14 DAP FINDINGS: MODIFIED BARIUM SWALLOW History: Dysphagia. FINDINGS: Fluoroscopy was provided for the speech pathologist to evaluate the swallowing mechanism. The patient was given several different consistencies of barium while the swallow was visualized fluoroscopically. The report of the speech pathologist should be consulted prior to making dietary decisions. Fluoro time: 3 minutes 14 seconds DAP: 160.14 uGy.m2 IMPRESSION: Modified barium swallow under fluoroscopic guidance. Please see the report of the speech pathologist for more detail. Films reviewed , interpreted and dictated by Dr. Blum. Transcribed by Steven Bender PA-C. Reviewed, Interpreted and Dictated by Darren Blum III, MD Transcribed by DARIEL Bond Authenticated and [facility]
--- NOTE | 2024-06-01 11:37 | HMH.SLMBS2 ---
Speech & Language Evaluation Speech/Language Mod Barium Swallow Start: 06/01/24 11:27 Freq: once Status: Complete Protocol: Document 06/01/24 11:27 MARISELA (Rec: 06/01/24 11:36 MARISELA Laptop) General Information General Current Food Consistancy Regular,Thin Liquids Dentition Good Dentition Oxygen Status Room Air Patient Orientation Person,Place,Time,Situation Ability to Follow Directions Excellent Communication Ability No Impairment MBS Recommendations Diet Dietary Recommendations Regular,Thin Liquids Treatment/Strategies Strategy/Precaution Recommend Sitting Upright (90 deg),Chin Tuck,No Straw,Small Bites and Sips,Alternate Liquids/Solids Referrals/Other Recommended Referrals GI Consult,ENT Consult Other Recommendations c/o globus sensation and pain/ discomfort inside neck Mod Barium Swallow Impressions Summary and Impressions Oral Phase Impression No Impairment (WFL) Oral Phase Summary No impairment at the oral preparatory and oral transit phase of the swallow; mastication and manipulation of bolus WFL. Pharyngeal Phase Impression Mild Impairment Pharyngeal Phase Summary Mild to moderate impairment at the pharyngeal phase of the swallow; diffuse residual observed throughout laryngel vestibule when drinking thin liquids through straw, SENIOR PROJECT COORDINATOR discussed need for no straws moving forward and pt informed she prefers straws and SENIOR PROJECT COORDINATOR discussed aspiration risk 2' trace penetration and residuals seen when using straw. Pt was also observed to have trace residue when eating both MS and regular solids in the vallecular space that required a chin tuck and an effortful swallow. Pt also was able to clear residuals when puree wash was trialed following initiation of swallow. Pt also penetrated subsequent sips of thin lqiuids. It is advised she use small bites/sips moving forward. Speech/Language MBS Assessment/Goals/Plan Assessment Date of Evaluation: 06/01/24 Evaluation Type Initial Certification Assessment/Problems silent aspiration during Full Barium Does Patient Qualify for Service No Qualify/Failure Comment Based on clinical observations made during instrumental assessment (MBSS), mastication and manipulation of bolus, and swallow when implementing recommended compensatory strategies and aspiration precautions are WFL. Skilled speech therapy services are not warranted at this time. Plan Pt/Guardian verbally ack understanding Yes of dx/prognosis/goals G -code Required No Education Instructions provided Discussed results of MBSS, diet recommendations, aspiration risks/precautions, and compensatory strategies, as well as referrals with pt who expressed understanding. Pt/Caregiver able to recall information Able to recall/restate Reinforcement needed No Mod Barium Swallow Setup Exam Setup Radiologist Darren Blum Level of Consciousness Awake,Alert,Appropriate, Follows Commands Mod Barium Swallow-Lat View Textures Lateral View Food Presentation Thin Liquid via Cup,Thin Liquid via Straw,Pureed Food- Thin,Mech. Soft Food- Regular, Barium Tablet,Regular Food, Pudding Oral Phase Labial Closure No Impairment (WFL) Bolus Formation Pooling L/R No Impairment (WFL) Bolus Formation under Tongue No Impairment (WFL) Bolus Formation Scattered Loss No Impairment (WFL) Mastication Rotary Chew Minimal Impairment Mastication Munching Minimal Impairment Mastication Lateralization No Impairment (WFL) Lingual Movement No Impairment (WFL) Residue Clearing Minimal Impairment Pharyngeal Phase A/P Lingual Propulsion Spills Mild Impairment Swallow Response Delay Minimal Impairment Base of Tongue Mild Impairment Epiglottic Coverage Minimal Impairment Laryngeal Elevation Mild Impairment Vallecular Retention Clearing Moderate Impairment Pharyn. Wall Residue Clearing Moderate Impairment Piriform Sinus Retention Mild Impairment Aspiration? No Silent aspiration? No Mod Barium Swallow-AP View Performed Mod Barium Swallow A/P View Test Not Applicable/Performed PHYSICIAN CERTIFICATION: I certify the specified therapy services for Gabi hCavis are required, authorized, and reviewed every 30 days.
== END 2024-06-01 23:59 | disposition home or self-care (01) ==
LOC: RAD 10:42
PROVIDERS: PCP Nurse Practitioner Family; Visit Provider Nurse Practitioner Family
DX: R13.19 Other dysphagia (principal)
CPT/HCPCS: 74230; 92611

== ENCOUNTER 2024-12-12 13:58 | Outpatient (RCR) | payer MEDICARE, OTHER, SELFPAY ==
--- NOTE | 2024-12-12 15:00 | HMH.PTOPEV ---
PT Outpatient Evaluation Rehab PT Outpatient Evaluation Start: 12/12/24 14:25 Freq: Status: Active Protocol: Document 12/12/24 14:48 ANKIT (Rec: 12/12/24 14:59 ANKIT [id number]) E-signed By Omar Trevino, PT Outpatient Therapy Subjective History Subjective History Pt is an 89 yof who presents with a history of chronic knee pain. Pt reports that her left knee is worst than her right but her right has gotten worse in recent months. Pt describes her pain as an achy pain. Pt reports that her pain occasionally gets worse at night time. Pt reports that she lives alone in an apartment and has to go up/ down a flight of stairs to retrieve her mail everyday. Pt denies falls but reports that she Staggered yesterday. Pt uses a FWW for all mobility. Occupation: Retired PMH: Stomach issues, B/L knee OA. New diagnosis of cancer in past 12 No months? Chief Complaint Pain,Stiff Symptom Type Ache Symptoms Relieved By Heat Symptoms Aggravated By Standing,Physical Activity, Walking Prior Functional Limitations None Current Functional Limitations Reaching,Lifting,Housework, Standing,Squatting,Walking, Stairs Symptom Description Intermittent,Activity Dependent Level of pain today (0-10) 1 Pain scale - at its best (0-10) 0 Pain scale - at its worst (0-10) 8 Hip/Knee Eval Gait Observation General Gait Pattern Observation Shuffling Step Assistive Device Assistive Devices Rolling / Wheeled Walker Palpation Tenderness bilateral Knee Palpation Finding Tenderness Knee Palpation Overall Comment 3/4 TTP to medial joint line B /L MMT Hip Flexion Strength Grade 3 Fair Hip Abduction Strength Grade 2 Poor Hip Adduction Strength Grade 2 Poor Hip Extension Strength Grade 3 Fair Knee Extension Strength Grade 2+ Poor+ Knee Flexion Strength Grade 2+ Poor+ ROM left Knee Extension Active Range of Motion ( -5 degrees) Knee Flexion Active Range of Motion ( 125 degrees) Special Tests Hip Bowstring (Cram) Test Negative Left,Negative Right Hip Lloyd's Test Negative Left,Negative Right Hip Berkley's Test Negative Left,Negative Right Hip Miles Test Negative Left,Negative Right Hip Scouring (Quadrant) Test Negative Left,Negative Right Knee Valgus Stress Test Negative Left,Negative Right Knee Varus Stress Test Negative Left,Negative Right Knee Edwin Test Negative Left,Negative Right Patellar Grind Test Positive Left,Positive Right Miscellaneous Dx PT Eval Objective Objective TS: 5s L, 10 s R Outpatient Therapy Assessment Impairments Problems/Impairmments Palpation Tenderness,Impaired Range of Motion,Impaired Strength,Impaired Gait Pattern ,Impaired Walking,Impaired Standing,Impaired Household Care,Impaired Stair Climbing, Impaired Balance,Subjective C/ O Pain Prognosis Rehab Potential Good Clinical Impression Consistent with Diagnosis Yes Consistent with b/l knee OA Short Term Goals Number of Weeks 4 Decreased Palpation Tenderness Yes: 1-2/4 to TTP Assessment Above Increase Strength Yes: 3+/5 to B LEs Improve Ability For Household Care Yes: Clean apartment without increasing knee pain Improve Balance Yes: TS on even surface for 30s Improve LEFI Score Yes: >33 Decrease Subjective C/O Pain Yes: 5/10 pain with above assessment Patient to be Ind w/ 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 Number of Weeks 8 Decreased Palpation Tenderness Yes: 0-1/4 to TTP Assessment Above Increase Range of Motion Yes: 0-125 L knee Increase Strength Yes: 4+/5 to B LEs grossly Improve Gait Pattern with Assistive Yes: Increased step length Device bilaterally Increase Ability to Stand Yes: 30 minutes Improve Ability to Climb Stairs Yes: Flight of stairs with hand rail with minimal difficulty Improve Balance Yes: TS on uneven surface for 30 s Decrease Subjective C/O Pain Yes: 2-3/10 with above assessment Patient to be Ind w/ Advanced HEP Yes Outpatient Therapy Plan of Care Treatment Plan May Include Therapeutic Exercise Including Home Yes Exercise Program Manual Therapy Techniques Yes Neuromuscular Re-education Yes Therapeutic Activities to Return to Yes Previous Functional/Work Level Gait Training Yes ADL/Self Care Education Yes Thermal Modalities Yes Electrical Stimulation Yes Manual Lymphatic Drainage Yes Eval/Re-Eval Yes Frequency Times per week 2 Duration Number of Weeks 8 Addendums This patient is a candidate for social No or vocational rehab? Patient/Guardian verbally acknowledges Yes understanding of treatment program and consents to further treatment? Patient/Guardian verbally acknowledges Yes understanding of diagnosis, prognosis and goals for treatment? Eval Complexity PT Charges 47118 - Moderate Complexity Shoulder/Elbow Eval Shoulder Objective Measurements Elbow Objective Measurements PHYSICIAN CERTIFICATION: I certify the specified therapy services for Gabi T Antle are required, authorized, and reviewed every 30 days.
== END 2024-12-12 23:59 | disposition home or self-care (01) ==
LOC: PT 13:58
PROVIDERS: PCP Nurse Practitioner Family; Visit Provider Nurse Practitioner Family
DX: M25.561 Pain in right knee (principal); M25.562 Pain in left knee
CPT/HCPCS: 97014; 97110; 97163; 97530; G0283

== ENCOUNTER 2025-01-12 14:00 | Outpatient (RCR) | payer MEDICARE, OTHER, SELFPAY ==
--- NOTE | 2025-01-12 15:11 | HMH.RHREAS ---
Rehab Reassessment Rehab OP Re-assessment Start: 12/20/24 14:03 Freq: Status: Active Protocol: Document 01/12/25 14:49 ANKIT (Rec: 01/12/25 15:11 ANKIT [id number]) E-signed By Omar Trevino PT Lower Extremity Functional Index Activities Today, do you or would you have any difficulty at all with: a.Any of your usual Moderate difficulty work, housework or school activities b. Your usual Moderate difficulty hobbies, recreational or sporting activities c. Getting into or Extreme difficulty or unable to perform activity out of the bath d. Walking between A little bit of difficulty rooms e. Putting on your A little bit of difficulty shoes or socks f. Squatting No difficulty g. Lifting an object Moderate difficulty , like a bag of groceries from the floor h. Performing light Moderate difficulty activities around your home i. Performing heavy Moderate difficulty activities around your home j. Getting into or Moderate difficulty out of a car k. Walking 2 blocks Moderate difficulty l. Walking a mile Extreme difficulty or unable to perform activity m. Going up or down A little bit of difficulty 10 stairs (about 1 flight of stairs) n. Standing for 1 Quite a bit of difficulty hour o. Sitting for 1 No difficulty hour p. Running on even Extreme difficulty or unable to perform activity ground q. Running on uneven Extreme difficulty or unable to perform activity ground r. Making sharp Extreme difficulty or unable to perform activity turns while running fast s. Hopping Extreme difficulty or unable to perform activity t. Rolling over in Quite a bit of difficulty bed LEFI Score Lower Extremity 33 Functional Index Score Rehab Re-assessment Subjective Subjective Pt reports that she is not improved. Reports that she is having a lot of difficulty with her L knee. Reports that her pain is approximately a 6/10 this date in her L knee. She reports her R knee is a little bit improved . She reports that she has not really noticed many improvements at home. Reports that is not able to clean her apartment without pain. Pt reports that she would like to continue PT because it has definitely helped in the past. Pt reports that she received a steroid injection in her R shoulder and was told that it will help her knees as well. Objective Objective Notes LEFS: 33 (22 on IE) TTP: 2/4 to L knee, 1/4 to R knee L knee ROM: 0-126 Strength: - Hip Flexion 4/5 - Hip ABD 3+/5 - Hip ADD 3+/5 - Knee Extension 3+/5 - Knee Flexion 3+/5 TS: 15s R, 16s L Assessment Progress Assessment Slower Than Expected Assessment Notes Pt has undergone one month of skilled PT focused on LE strengthening, balance training and pain management. Pt has demonstrated mild improvements in strength, knee ROM and LEFS score thus far. Pt continues to present below baseline in strength, balance and reported functions. Skilled PT remains indicated for this pt to promote a return to her PLOF and to address her remaining impairments. Patient goals met ST,2,5,6 LT Plan Plan Continue as per initial POC Frequency of Therapy 2/week Duration of therapy 4 weeks Time and Billing Re-Eval Time 10 Re-Eval Billing 0 Units Charge for PT No reassessment? PHYSICIAN CERTIFICATION: I certify the specified therapy services for Gabi Chavis are required, authorized, and reviewed every 30 days.
== END 2025-01-12 23:59 | disposition home or self-care (01) ==
LOC: PT 14:00
PROVIDERS: PCP Nurse Practitioner Family; Visit Provider Nurse Practitioner Family
DX: M25.562 Pain in left knee
CPT/HCPCS: 97014; 97110; G0283

== ENCOUNTER 2025-01-26 14:48 | Outpatient (RCR) | payer MEDICARE, OTHER, SELFPAY ==
--- NOTE | 2025-01-26 15:30 | HMH.PTOPWND ---
Rehab Outpt Wound Evaluation Rehab OP Wound Evaluation Start: 01/26/25 15:16 Freq: Status: Active Protocol: Document 01/26/25 15:17 PHOOSWALDO (Rec: 01/26/25 15:29 PHORSOPHIA [id number]) E-signed By Brennan Clark, PT Subjective/History History History This is the initial PT eval for Gabi Chavis, 89 yowf who presents with c/o coccyx wound x several mos. She reports it was initially much worse in the setting of decreased continence and prolonged sitting. However, she has been applying appropriate topical ointments and reducing pressure to the area and she reports feeling much better now. She does want to ensure she is properly caring for her wound and continued to follow up as requested by her PCP. Subjective Subjective She currently has no pain, 0/10, but does have minimal tenderness in the juan daniel-wound skin, 1/4. Wound Eval Wound Sacrum Wound Type Pressure Ulcer Is This a Chronic No Wound Wound Length (cm) 0.4 Wound Width (cm) 0.1 Wound Depth (cm) 0.1 Wound Bed Appearance Yancey Wound Margins Well Defined Description Surrounding Tissue Bright Red Appearance Drainage Description Serous Drainage Amount Scant Drainage Odor No Odor Wound Topical Saline Irrigant Solution/Irrigant Primary Dressing barrier cream Comment A&D ointment Wound Debridement Gauze,Mechanical Method Wound Debridement None Amount of Tissue Removed Dressing Change Tolerated Well Patient Tolerance Ortiz-Da Silva Wound Assessment Tool Assessment Wound size 1=Length x Width <4 sq cm Wound depth 2=Partial thickness skin loss involving epidermis &/or dermis Wound edges 1=Indistinct, diffuse, none clearly visible Wound undermining 1=None present Necrotic tissue type 1=Non visible Necrotic tissue 1=None visible amount Exudate type 4=Serous: thin, watery, clear Exudate amount 2=Scant, wound moist but no observable exudate Skin color 2=Bright red &/or blanches to touch surrounding wound Peripheral tissue 1=No swelling or edema edema Peripheral tissue 1=None present induration Granulation tissue 1=Skin intact or partial thickness wound Epithelialization 2=75% to < 100% wound covered &/or epithelial tissue extends > 0.5cm Wound assessment 20 total score Wound Problems/Impairments Impairments Problems/ Palpation Tenderness,Wound Care Needs Impairmments Prognosis Rehab Potential Good Comment Skilled therapy is not currently indicated as patient has steadily healed and is already caring for her wound appropriately. No further debridement of this wound is needed at this time. Clinical Impression Consistent with Yes Diagnosis Outpatient Therapy Plan of Care Treatment Plan May Include Eval/Re-Eval Yes Frequency Times per week 0 Duration Number of Weeks 0 Addendums This patient is a No candidate for social or vocational rehab ? Patient/Guardian Yes verbally acknowledges understanding of treatment program and consents to further treatment? Patient/Guardian Yes verbally acknowledges understanding of diagnosis, prognosis and goals for treatment? Eval Complexity PT Charges 06909 - Low Complexity PHYSICIAN CERTIFICATION: I certify the specified therapy services for Gabi Chavis are required, authorized, and reviewed every 30 days.
== END 2025-01-26 23:59 | disposition home or self-care (01) ==
LOC: PT 14:48
PROVIDERS: PCP Nurse Practitioner Family; Visit Provider Nurse Practitioner Family
DX: S31.000D Unspecified open wound of lower back and pelvis without penetration into retroperitoneum, subsequent encounter (principal)
CPT/HCPCS: 97161

== ENCOUNTER 2025-02-09 14:00 | Outpatient (RCR) | payer MEDICARE, OTHER, SELFPAY ==
--- NOTE | 2025-02-09 16:01 | HMH.RHREAS ---
Rehab Reassessment Rehab OP Re-assessment Start: 01/16/25 14:03 Freq: Status: Active Protocol: Document 02/09/25 14:51 LEETOROASVANAH (Rec: 02/09/25 16:01 ANKIT [id number]) E-signed By Omar Trevino, PT Lower Extremity Functional Index Activities Today, do you or would you have any difficulty at all with: a.Any of your usual Moderate difficulty work, housework or school activities b. Your usual Moderate difficulty hobbies, recreational or sporting activities c. Getting into or A little bit of difficulty out of the bath d. Walking between A little bit of difficulty rooms e. Putting on your Moderate difficulty shoes or socks f. Squatting Quite a bit of difficulty g. Lifting an object Quite a bit of difficulty , like a bag of groceries from the floor h. Performing light Quite a bit of difficulty activities around your home i. Performing heavy Moderate difficulty activities around your home j. Getting into or A little bit of difficulty out of a car k. Walking 2 blocks Extreme difficulty or unable to perform activity l. Walking a mile Extreme difficulty or unable to perform activity m. Going up or down Quite a bit of difficulty 10 stairs (about 1 flight of stairs) n. Standing for 1 Extreme difficulty or unable to perform activity hour o. Sitting for 1 Moderate difficulty hour p. Running on even Extreme difficulty or unable to perform activity ground q. Running on uneven Extreme difficulty or unable to perform activity ground r. Making sharp Extreme difficulty or unable to perform activity turns while running fast s. Hopping Extreme difficulty or unable to perform activity t. Rolling over in A little bit of difficulty bed LEFI Score Lower Extremity 26 Functional Index Score Rehab Re-assessment Subjective Subjective Pt reports that she is 30% improved this date. Pt reports that her R knee pain has nearly subsided and very seldomly gives her any trouble. She reports that her L knee pain remains approximately the same intensity but has become less frequent. Reports that her L knee feels much less painful when she is moving her leg. Reports that her pain is a 5/10 throughout today's reassessment. Objective Objective Notes LEFS: 25 (33 on prior RA) TTP: 1/4 to L knee, 0/4 to R knee L knee ROM: 0-126 Strength: - Hip Flexion 4/5 - Hip ABD 4/5 - Hip ADD 4/5 - Knee Extension 11/19 - Knee Flexion 11/19 TS: 21s R, 17s L Assessment Progress Assessment Progressing as Expected Assessment Notes Pt has undergone 2 months of skilled PT thus far, consisting of improving her bilateral lower extremity strength, gait training, balance training and pain modulation. Pt has responded fairly to treatment thus far, reporting less frequent episodes of pain, slightly improved strength and motion, and improved levels of function. The pt would continue to benefit from skilled PT to address her remaining impairments. Patient goals met ST,2,5,6 LT Plan Plan Continue as per initial POC. Frequency of Therapy 2/week Duration of therapy 4 weeks Time and Billing Re-Eval Time 10 Re-Eval Billing 0 Units Charge for PT No reassessment? PHYSICIAN CERTIFICATION: I certify the specified therapy services for Gabi Chavis are required, authorized, and reviewed every 30 days.
== END 2025-02-09 23:59 | disposition home or self-care (01) ==
LOC: PT 14:00
PROVIDERS: PCP Nurse Practitioner Family; Visit Provider Nurse Practitioner Family
DX: M25.561 Pain in right knee (principal); M25.562 Pain in left knee
CPT/HCPCS: 97014; 97110; G0283

== ENCOUNTER 2025-03-16 15:00 | Outpatient (RCR) | payer MEDICARE, OTHER, SELFPAY | END 2025-03-16 23:59 | disposition home or self-care (01) | LOC: PT 15:00 | PROVIDERS: PCP Nurse Practitioner Family; Visit Provider Nurse Practitioner Family | DX: M25.561 Pain in right knee (principal); M25.562 Pain in left knee | CPT/HCPCS: 97014; 97110; 97530; G0283 ==

== ENCOUNTER 2025-03-30 13:00 | Outpatient (RCR) | payer MEDICARE, OTHER, SELFPAY | END 2025-03-30 23:59 | disposition home or self-care (01) | LOC: PT 13:00 | PROVIDERS: PCP Nurse Practitioner Family; Visit Provider Nurse Practitioner Family | DX: M25.562 Pain in left knee (principal); M25.561 Pain in right knee | CPT/HCPCS: 97014; 97110; G0283 ==

== ENCOUNTER 2025-04-07 18:12 | Emergency (ER) | payer MEDICARE, OTHER, SELFPAY ==
--- OUTSIDE RECORDS SUMMARY | 2024-07-18 07:15 | XMS_ITS ---
Author Organization [facility] Address [address] [place] [address] Care Team Providers Care Malt Loader Name Role Phone Anthony Vargas Primary Care Provider Alexandria Martins Unavailable Self Referral, Self Unavailable Unavailable REASON FOR VISIT CCM. Encounters Encounter Location Date Provider Diagnosis [facility] [address] [place] [address] 07/18/2024 Alexandria Goode Plan Of Treatment No Information Progress Notes * Shane CHAVISOB:1935 ([age] yo F)Acc No.[id number]:07/18/2024 Patient: Gabi Joshua Provider: Mary Goode MD Resource:Kylah Calvo :1935 A ge:88 Y S ex:Female Date:07/18/2024 Address:[address] [address], [id number] Pcp:Anthony Vargas Subjective: * Chief Complaints: * C CM. * Electronic signature of Raghu Goode MD on 04/07/2025 at 06:32 PM EDT Sign off status: Pending * Provider: Mary Goode MD Date: 09/18/2023 Generated for Printi ng/Faxing/eTransmitting on: 0 04/07/2025 06:32 PM EDT
--- OUTSIDE RECORDS SUMMARY | 2024-07-23 17:00 | XMS_ITS ---
Author Organization [facility] Address [address] [place] [address] Care Team Providers Care Cement Fittings Maker Name Role Phone Anthony Vargas Primary Care Provider Unavailabl e Alexandria Goode Unavailable Self Referral, Self Unavailable Unavailable Migration, Provider Unavailable Unavailable REASON FOR VISIT [facility] Conversion Encounter Medications Medication SIG (Take, Route, Frequency, Duration) Notes Start Date End Date Status Temazepam 15 MG Capsule ; Duration: 30 Days Active Omeprazole 20 MG Capsule Delayed Release TAKE 1 CAPSULE BY MOUTH TWICE DAILY; Duration: 30 Days Active dilTIAZem HCl ER Beads 120 MG Capsule Extended Release 24 Hour 1 cap(s) orally once a day Active hydroCHLOROthiazide 12.5 MG Tablet ; Duration: 90 Days Active Multi Vitamin *Please review and pick correct strength-formulat ion from [employer] options. If intended option is not shown, discontinue and re-order from Quick Search* Active Gemtesa 75 MG Tablet 1 tab(s) orally once a day Active MiraLax PRN *Please review and pick correct strength-formulat ion from HeyCrowdan options. If intended option is not shown, discontinue and re-order from Quick Search* Active Diclofenac Sodium 1 % Gel as directed applied topically 4 times a day; Duration: 30 days Active Calcium 500 + D 500 MG-10 MCG TABLET, CHEWABLE 1 TAB(S) CHEWED 2 TIMES A DAY *Please review and pick correct strength-formulat ion from [employer] options. If intended option is not shown, discontinue and re-order from Quick Search* Active Align 4 MG Capsule 1 cap(s) orally once a day Active Encounters Encounter Location Date Provider Diagnosis [facility] [address] [place] [address] 07/23/2024 Provider Migration Pain in left knee M25.562 Assessments Encounter Date Diagnosis (ICD Code) Assessment Notes Treatment Notes Treatment Clinical Notes Section Notes 07/23/2024 Pain in left knee (ICD-10 - M25.562) stable, continue PT and HEP. Plan Of Treatment Medication Medication Name Sig Start Date Stop Date Notes Diclofenac Sodium 1 % Gel as directed ap plied topically 4 times a day; Duration: 30 days Progress Notes * Genna CHAVIShDOB:1935 ([age] yo F)Acc No.[id number]:07/23/2024 Patient: Burton Joshua Provider: Montez Constantino :1935 A ge:88 Y S ex:Female Date:07/23/2024 Address:[facility] [address] [place] [id number] Pcp:Anthony Vargas Subjective: * Chief Complaints: * [facility] * Medications: T akingGemtesa 75 MG Tablet 1 tab(s) orally once a day MiraLax , Notes to Pharmacist: PRN *Please review and pick correct strength-formulation from [employer]Crowdan options. If intended option is not shown, discontinue and re-order from Quick Search*Calcium 500 + D 500 MG-10 MCG TABLET, CHEWABLE 1 TAB(S) CHEWED 2 TIMES A DAY , Notes to Pharmacist: *Please review and pick correct strength-formulation from HeyCrowdan options. If intended option is not shown, discontinue and re-order from Quick Search*Align 4 MG Capsule 1 cap(s) orally once a day Multi Vitamin , Notes to Pharmacist: *Please review and pick correct strength-formulation from Pilot System[employer] options. If intended option is not shown, discontinue and re-order from Quick Search*dilTIAZem HCl ER Beads 120 MG Capsule Extended Release 24 Hour 1 cap(s) orally once a day hydroCHLOROthiazide 12.5 MG Tablet Temazepam 15 MG Capsule Omeprazole 20 MG Capsule Delayed Release TAKE 1 CAPSULE BY MOUTH TWICE DAILY Taking Gemtesa 75 MG Tablet 1 tab(s) orally once a day Taking MiraLax , Notes to Pharmacist: PRN *Please review and pick correct strength-formulation from Hey[employer]rowdan options. If intended option is not shown, discontinue and re-order from Quick Search*Taking Calcium 500 + D 500 MG-10 MCG TABLET, CHEWABLE 1 TAB(S) CHEWED 2 TIMES A DAY , Notes to Pharmacist: *Please review and pick correct strength-formulation from [employer] options. If intended option is not shown, discontinue and re-order from Quick Search*Taking Align 4 MG Capsule 1 cap(s) orally once a day Taking Multi Vitamin , Notes to Pharmacist: *Please review and pick correct strength-formulation from [employer] options. If intended option is not shown, discontinue and re-order from Quick Search*Taking dilTIAZem HCl ER Beads 120 MG Capsule Extended Release 24 Hour 1 cap(s) orally once a day Taking hydroCHLOROthiazide 12.5 MG Tablet Taking Temazepam 15 MG Capsule Taking Omeprazole 20 MG Capsule Delayed Release TAKE 1 CAPSULE BY MOUTH TWICE DAILY Assessment: * Assessment: 1. P ain in left knee - M25.562 N otes :stable, continue PT and HEP. Plan: * Treatment: * Electronic signature of Dax wlaker Migration on 04/07/2025 at 06:32 PM EDT Sign off status: Pending * Provider: Montez najera Migration Date: 09/23/2023 Generated for Tucker vences/Ale/Aki on: 0 04/07/2025 06:32 PM EDT
--- OUTSIDE RECORDS SUMMARY | 2024-08-22 10:40 | XMS_ITS ---
Author Organization [facility] Address [address] [place] [address] Care Team Providers Care Sharemilker Name Role Phone Anthony Vargas Primary Care Provider Alexandria Martins Unavailable Self Referral, Self Unavailable Unavailable REASON FOR VISIT CCM Check In Encounters Encounter Location Date Provider Diagnosis [facility] [address] [place] [address] 08/22/2024 Alexandria Goode Plan Of Treatment No Information Progress Notes * Shane CHAVISOB:1935 ([age] yo F)Acc No.[id number]:08/22/2024 Patient: Burton Joshua Provider: Mary Goode MD Resource:Kylah Calvo :1935 A ge:89 Y S ex:Female Date:08/22/2024 Address:[address] [address], [phone] Pcp:Anthony Vargas Check Out:02:58 PM EST Subjective: * Chief Complaints: * C CM Check In * Electronic signature of Raghu Goode MD on 04/07/2025 at 06:32 PM EDT Sign off status: Pending * Provider: Mary Goode MD Date: 0 08/22/2024 Generated for Printi ng/Faheikeg/eTransmitting on: 0 04/07/2025 06:32 PM EDT
--- OUTSIDE RECORDS SUMMARY | 2025-03-27 04:45 | XMS_ITS ---
Author Organization [facility] D ALISHA Address [address] [place], [place] [address] Care Team Providers Care Quenching Machine Operator Name Role Phone Carissa Mavis Primary Care Provider [phone] MAVIS FERRER Unavailable Unavaila ble Allergies No Known Allergies Results Component Value Reference Range Notes COMPREHENSIVE METABOLIC PANE L (00352) Reviewed date:03/29/2025 05:41:36 PM Interpretation: Performing Lab:CB, [facility] [id number], [id number] Kaleb Murillo Notes/Report: NON-FASTING; NON-FASTING GLUCOSE 108 65-99 mg/dL Fasting reference interval For someone without known diabetes, a glucose value between 100 and 125 mg/dL is consistent with prediabetes and should be confirmed with a follow-up test. UREA NITROGEN (BUN) 15 7-25 mg/dL CREATININE 0.54 0.60-0.95 mg/dL EGFR 88 > OR = 60 mL/min/1.73m2 BUN/CREATININE RATIO 28 6-22 (calc) SODIUM 140 135-146 mmol/L POTASSIUM 3.8 3.5-5.3 mmol/L CHLORIDE 99 98-110 mmol/L CARBON DIOXIDE 34 20-32 mmol/L CALCIUM 10.1 8.6-10.4 mg/dL PROTEIN, TOTAL 7.0 6.1-8.1 g/dL ALBUMIN 4.4 3.6-5.1 g/dL GLOBULIN 2.6 1.9-3.7 g/dL (calc) ALBUMIN/GLOBULIN RATIO 1.7 1.0-2.5 (calc) BILIRUBIN, TOTAL 0.4 0.2-1.2 mg/dL ALKALINE PHOSPHATASE 92 37-153 U/L AST 11 10-35 U/L ALT 7 6-29 U/L CBC (INCLUDES DIFF/PLT) (639 9) Reviewed date:03/29/2025 05:41:28 PM Interpretation: Performing Lab:[facility] [id number], [facility] [id number] Kaleb Murillo Notes/Report: NON-FASTING; NON-FASTING WHITE BLOOD CELL COUNT 4.4 3.8-10.8 Thousand/ uL RED BLOOD CELL COUNT 3.80 3.80-5.10 Million/uL HEMOGLOBIN 12.4 11.7-15.5 g/dL HEMATOCRIT 39.6 35.0-45.0 % MCV 104.2 80.0-100.0 fL MCH 32.6 27.0-33.0 pg MCHC 31.3 32.0-36.0 g/dL For adults, a slight decrease in the calculated MCHC value (in the range of 30 to 32 g/dL) is most likely not clinically significant; however, it should be interpreted with caution in correlation with other red cell parameters and the patient's clinical condition. RDW 12.1 11.0-15.0 % PLATELET COUNT 284 140-400 Thousand/uL MPV 10.3 7.5-12.5 fL ABSOLUTE NEUTROPHILS 2803 1873-1540 cells/uL ABSOLUTE LYMPHOCYTES 6103 876-2763 cells/uL ABSOLUTE MONOCYTES 374 200-950 cells/uL ABSOLUTE EOSINOPHILS 70 15-500 cells/uL ABSOLUTE BASOPHILS 22 0-200 cells/uL NEUTROPHILS 63.7 LYMPHOCYTES 25.7 MONOCYTES 8.5 EOSINOPHILS 1.6 BASOPHILS 0.5 VITAMIN B12/FOLATE, SERUM OR KATJA (7065) Reviewed date:04/04/2025 02:40:00 PM Interpretation: Performing Lab:[facility] [id number], [facility] [id number] Kaleb Murillo Notes/Report: NON-FASTING; NON-FASTING VITAMIN B12 598 006-1294 pg/mL FOLATE, SERUM >24.0 Reference Range Low: <3.4 Borderline: 3.4-5.4 Normal: >5.4 TEST AUTHORIZATION Reviewed date:03/31/2025 10:42:24 AM Interpretation: Performing Lab:CB, [facility] [id number] [facility], [place] [id number] Kaleb Murillo Notes/Report: NON-FASTING; NON-FASTING TEST NAME: VITAMIN B12/FOLATE, TEST CODE: 7065SB CLIENT CONTACT: DR FERRER REPORT ALWAYS MESSAGE SIGNATURE The laboratory testing on this patient was verbally requested or confirmed by the ordering physician or his or her authorized tour sales representative after contact with an employee of [employer]. Federal regulations require that we maintain on file written authorization for all laboratory testing. Accordingly we are asking that the ordering physician or his or her authorized tour sales representative sign a copy of this report and promptly return it to the software client architect. Signature: COMMENT Please fax this signed form to [phone]. Please do not attempt to return this document by other methods. Documents will not be viewed by a tour sales representative. Please do not use this fax number for other service requests. REASON FOR VISIT AWV,labs-non fasting Medications Medication SIG (Take, Route, Frequency, Duration) Notes Start Date End Date Status Metamucil Smooth Texture 58.6 % as directed orally once a day Active Tylenol Extra Strength 500 MG 2 tab(s) orally every 6 hours Active CENTRUM WOMEN'S THERAPEUTIC MULTIPLE VITAMINS WITH MINERALS 1 TAB(S) ORALLY ONCE A DAY *Please review for potential replacement for e-prescription and drug interaction check* Active Calcium 600 + D 600 MG-20 MCG 1 TAB(S) ORALLY 2 TIMES A DAY *Please review and pick correct strength-formulatio n from [employer] options. If intended option is not shown, discontinue and re-order from Quick Search* Active Align 4 MG 1 CAP(S) ORALLY ONCE A DAY *Please review and pick correct strength-formulatio n from [employer] options. If intended option is not shown, discontinue and re-order from Quick Search* Active Myrbetriq 25 MG 1 tab(s) orally once a day; Duration: 30 days Active Cranberry 1 PO QAM *Please review a nd pick correct strength-formulatio n from [employer] options. If intended option is not shown, discontinue and re-order from Quick Search* Active Magnesium Oxide 400 MG 2 tabs orally once a day Active Lubiprostone 24 MCG 1 capsule with food and water Orally Twice a day; Duration: 30 days 03/27/2025 Active dilTIAZem HCl 120 MG TAKE 1 TABLET BY MOUTH THREE TIMES DAILY; Duration: 90 Active Temazepam 15 MG 1 cap(s) orally once a day (at bedtime); Duration: 30 days 11/29/2024 Active Omeprazole 20 MG 1 cap(s) orally once a day; Duration: 90 days 06/11/2024 Active Nystatin 672808 UNIT/GM 1 application Externally Twice a day; Duration: 14 days 01/12/2025 Active Social History Tobacco Use: Social History Observation Description Date Details (start date - stop date) Never Smoker NA - NA Smoking: Question Answer Notes Are you a: nonsmoker Problems Problem Type SNOMED Code ICD Code Onset Dates Problem Status W/U Status Risk Notes Problem Advanced age (80736816) Advanced age (R54) Active confirmed Vital Signs Temperature 97.2 degrees Fahrenheit 03/27/20 25 Blood pressure systolic 150 mm Hg 03/27/20 25 Blood pressure diastolic 60 mm Hg 025 Heart Rate 98 /min 03/27/2025 Height 61.5 in 03/27/2025 Weight 99.8 lbs 03/27/2025 BMI 18.55 kg/m2 03/27/2025 Encounters Encounter Location Date Provider Diagnosis [facility] PED ALISHA [address] [facility] [address] [place], [place] [address] 03/27/2025 Mavis Ferrer Chronic constipation K59.09 ; Medicare annual wellness visit, subsequent Z00.00 ; Functional urinary incontinence R39.81 ; Esophageal dysphagia R13.19 ; HTN (hypertension), benign I10 ; Chronic insomnia F51.04 ; BMI less than 19,adult Z68.1 ; Murmur R01.1 and Advanced age R54 Assessments Encounter Date Diagnosis (ICD Code) Assessment Notes Treatment Notes Treatment Clinical Notes Section Notes 03/27/2025 Chronic constipation (ICD-10 - K59.09) continue current regimen but encouraged better fluid intake and increasing dose of Amitiza as noted 03/27/2025 Medicare annual wellness visit, subsequent (ICD-10 - Z00.00) Up-to-date on screening exams for age, additional not recommended. Vaccinations are up-to-date, will return in the fall for flu vaccine. 03/27/2025 Functional urinary incontinence (ICD-10 - R39.81) encouraged to continue topical estrogen and Myrbetriq, FU with URO 03/27/2025 Esophageal dysphagia (ICD-10 - R13.19) improved overall, taking PPI routinely 03/27/2025 HTN (hypertension), benign (ICD-10 - I10) reasonable control for age 0803/27/2025 Chronic insomnia (ICD-10 - F51.04) continue temazepam 03/27/2025 BMI less than 19,adult (ICD-10 - Z68.1) stable for patient and not likely to improve 03/27/2025 Murmur (ICD-10 - R01.1) chronic, stable on exam. prior echo with AI. Not symptomatic. 03/27/2025 Advanced age (ICD-10 - R54) Plan Of Treatment Medication Medication Name Sig Start Date Stop Date Notes Myrbetriq 25 MG 1 tab(s) orally once a day; Duration: 30 days Lubiprostone 8 MCG 1 cap(s) orally 2 times a day Lubiprostone 24 MCG 1 capsule with food and water Orally Twice a day; Duration: 30 days 03/27/2025 Next Appt Details Follow Up: 6 Months, Reason: Progress Notes * MARISOLGennah TDOB:1935 (89 yo F)Acc No.[id number]:03/27/2025 Progress Notes Patient: Gabi HOFF Provider: RYAN Harris :1935 A ge:89 Y S ex:Female Date:03/27/2025 Address:[facility] [address], [address], [place], [id number] Subjective: * Chief Complaints: * 1 . AWV,labs-non fasting. * HPI: g en: 89-year-old female present to FU on chronic disease and for AWV. No new concerns. D enies CP, SOA, ROTH, visual changes Chronic constipation- Ongoing concern. Typical bowel pattern every 2-3 days, hard/formed. Previously linzess without relief. Now on Amitiza, Mag Oxide, Fiber, miralax. She is having BM most days but not always aware of this and is incontinent at times of small formed stool. Urinary Incontinence - following with urology, FU again in May No swallowing difficulty recently Using walker out of house Wound on coccyx is healed continues to have bilat knee pain, tolerable, improves some with therapies. * ROS: F UNCTIONAL STATUS: ADLS I ndependent for all ADL/IADL, assistance with transportation and certain tasks. R ESPIRATORY: Reviewed, No Symptoms Reported: Y es. C ARDIOLOGY: Reviewed, No Symptoms Reported: Y es. C ONSTITUTIONAL: no L oss of appetite. n o F ever. W eakness?yes, a t baseline. D ERMATOLOGY: no R ruddy. G ASTROENTEROLOGY: See HPI Y es. D ysphagia y es. C onstipation?yes. n o B lood in stool. M USCULOSKELETAL: Joint stiffness y es. J oint pain y es. n o?Joint swelling. N EUROLOGY: Reviewed, No Symptoms Reported: Y es. P SYCHOLOGY: Reviewed, No Symptoms Reported: Y es. U ROLOGY: no D ifficulty urinating. n o B lood in urine. F requent urination yes. U rinary incontinence yes. * Medical History: H ypertension, Hyperlipidemia, Diverticulitis, Degenerative arthritis, Colitis, Heart murmur, aortic insufficiency. * Surgical History: T and A 195, Total Hysterectomy , Fistula , cholecystectomy 2007, Hernia removal 2007. * Hospitalization/Major Diagno stic Procedure: a debra surgeries 2007. * Family History: F ather: , diagnosed with Cancer. M other: , ovarian cancer, diagnosed with Heart Disease. P aternal Grand Father: . P aternal Grand Mother: . M aternal Grand Father: . M aternal Grand Mother: . M aternal uncle: .?Children: alive. 1 brother(s) , 1 sister(s) - healthy. 1 son(s) , 1 daughter(s) - healthy. . * Social History: S moking A re you a: n onsmoker. R ecreational drug use: no. Exercise: yes. Home smoke detector use: yes. Caffeine: yes, frequency: tea, pepsi. Living Will: Yes. Alcohol: no. Sexually active: no. Travel outside [place]: no. Occupation: Retired. * Medications: T aking Myrbetriq 25 MG Tablet Extended Release 24 Hour 1 tab(s) orally once a day , Taking Cranberry 1 PO QAM , Notes to Pharmacist: *Please review and pick correct strength-formulation from [employer] options. If intended option is not shown, discontinue and re-order from Quick Search*, Taking Magnesium Oxide 400 MG Tablet 2 tabs orally once a day , Taking Metamucil Smooth Texture 58.6 % Powder as directed orally once a day , Taking Tylenol Extra Strength 500 MG Tablet 2 tab(s) orally every 6 hours , Taking CENTRUM WOMEN'S THERAPEUTIC MULTIPLE VITAMINS WITH MINERALS TABLET 1 TAB(S) ORALLY ONCE A DAY , Notes to Pharmacist: *Please review for potential replacement for e-prescription and drug interaction check*, Taking Calcium 600 + D 600 MG-20 MCG TABLET 1 TAB(S) ORALLY 2 TIMES A DAY , Notes to Pharmacist: *Please review and pick correct strength-formulation from [employer] options. If intended option is not shown, discontinue and re-order from Quick Search*, Taking Align 4 MG CAPSULE 1 CAP(S) ORALLY ONCE A DAY , Notes to Pharmacist: *Please review and pick correct strength-formulation from [employer] options. If intended option is not shown, discontinue and re-order from Quick Search*, Taking dilTIAZem HCl 120 MG Tablet TAKE 1 TABLET BY MOUTH THREE TIMES DAILY , Taking Temazepam 15 MG Capsule 1 cap(s) orally once a day (at bedtime) , Taking Omeprazole 20 MG Capsule Delayed Release 1 cap(s) orally once a day , Taking Nystatin 085921 UNIT/GM Cream 1 application Externally Twice a day , Taking Lubiprostone 8 MCG Capsule 1 cap(s) orally 2 times a day , Medication List reviewed and reconciled with the patient * Allergies: N .K.D.A. Objective: * Vitals: N urse: jl, Pain: 5-lt knee, Temp: 97.2, RR: 18, HR: 98, BP: 150/60, Ht: 61.5, Wt: 99.8, BMI:18.55, Repeat BP: 142/64. * Examination: G eneral Examination: General P leasant and Cooperative, NAD on RA,. Heart: R egular Rate and Rhythm, systolic murmur noted.? Lungs: c lear to auscultation,. Abdomen: s oft, NT/ND, BS present. Neurologic Exam: A lert and oriented x 3, uses walker. Skin: w ithout acute rashes. Peripheral pulses: n ormal (2+) bilaterally. Extremities: c repitant knees bilat, no clubbing or edema.? neck n o thyromegaly,. Psych N ormal Mood/Affect. Assessment: * Assessment: 1. M [facility] annual wellness visit, subsequent - Z00.00 (Primary) 2 . C hronic constipation - K59.09 3 . F unctional urinary incontinence - R39.81 ? 4 . E sophageal dysphagia - R13.19 5 . H TN (hypertension), benign - I10 6 . C hronic insomnia - F51.04 7 . B NH less than 19,adult - Z68.1 8 . M urmur - R01.1 9 . A dvanced age - R54 Plan: * Treatment: 2. C hronic constipation Stop Lubiprostone Capsule, 8 MCG, 1 cap(s), orally, 2 times a day; S tart Lubiprostone Capsule, 24 MCG, 1 capsule with food and water, Orally, Twice a day, 30 days, 60, Refills 5. L AB: COMPREHENSIVE METABOLIC PANEL (33892) Value Reference Range G LUCOSE 108 H 65-99 - mg/dL * U FELIPA NITROGEN (BUN) 15 7-25 - mg/dL * C REATININE 0.54 L 0.60-0.95 - mg/dL * B UN/CREATININE RATIO 28 H 6-22 - (calc) * S ODIUM 140 135-146 - mmol/L * P OTASSIUM 3.8 3.5-5.3 - mmol/L * C HLORIDE 99 98-110 - mmol/L * C ARBON DIOXIDE 34 H 20-32 - mmol/L * C ALCIUM 10.1 8.6-10.4 - mg/dL * P ROTEIN, TOTAL 7.0 6.1-8.1 - g/dL * A LBUMIN 4.4 3.6-5.1 - g/dL * G LOBULIN 2.6 1.9-3.7 - g/dL (calc ) * A LBUMIN/GLOBULIN RATIO 1.7 1.0-2.5 - (calc) * B ILIRUBIN, TOTAL 0.4 0.2-1.2 - mg/dL * A LKALINE PHOSPHATASE 92 37-153 - U/L * A ST 11 10-35 - U/L * A LT 7 6-29 - U/L * E GFR 88 > OR = 60 - mL/min/1 .73m2 * Richie Castlenichelle Noriega 03/29/20 02:59:09 PM EDT > pt informed, labs addedThis lab was reviewed by Mavis Ferrer on 03/29/2025 at 17:41 PM EDT ?LAB: CBC (INCLUDES DIFF/PLT) (4047)* Value Reference Range W JOSE BLOOD CELL COUNT 4.4 3.8-10.8 - Thousan d/uL * R ED BLOOD CELL COUNT 3.80 3.80-5.10 - Million/ uL * H EMOGLOBIN 12.4 11.7-15.5 - g/dL * H EMATOCRIT 39.6 35.0-45.0 - % * M CV 104.2 H 80.0-100.0 - fL * M CH 32.6 27.0-33.0 - pg * M CHC 31.3 L 32.0-36.0 - g/dL * R DW 12.1 11.0-15.0 - % * P LATELET COUNT 284 140-400 - Thousand/u L * N EUTROPHILS 63.7 - % * A BSOLUTE NEUTROPHILS 2803 1575-2315 - cells/uL * L YMPHOCYTES 25.7 - % * A BSOLUTE LYMPHOCYTES 1614 306-7933 - cells/uL * M ONOCYTES 8.5 - % * A BSOLUTE MONOCYTES 374 200-950 - cells/uL * E OSINOPHILS 1.6 - % * A BSOLUTE EOSINOPHILS 70 15-500 - cells/uL * B ASOPHILS 0.5 - % * A BSOLUTE BASOPHILS 22 0-200 - cells/uL * M PV 10.3 7.5-12.5 - fL * Zaria Castle Hari 03/29/20 02:59:09 PM EDT > pt informed, labs addedThis lab was reviewed by Mavis Ferrer on 03/29/2025 at 17:41 PM EDT Clinical Notes: continue current regimen but encouraged better fluid intake and increasing dose of Amitiza as noted??3.?Functional urinary incontinence? Refill Myrbetriq Tablet Extended Release 24 Hour, 25 MG, 1 tab(s), orally, once a day, 30 days, 30 Tablet, Refills 5.?? Clinical Notes: encouraged to continue topical estrogen and Myrbetriq, FU with URO??4.?Esophageal dysphagia?LAB: COMPREHENSIVE METABOLIC PANEL (23910)* Value Reference Range G LUCOSE 108 H 65-99 - mg/dL * U FELIPA NITROGEN (BUN) 15 7-25 - mg/dL * C REATININE 0.54 L 0.60-0.95 - mg/dL * B UN/CREATININE RATIO 28 H 6-22 - (calc) * S ODIUM 140 135-146 - mmol/L * P OTASSIUM 3.8 3.5-5.3 - mmol/L * C HLORIDE 99 98-110 - mmol/L * C ARBON DIOXIDE 34 H 20-32 - mmol/L * C ALCIUM 10.1 8.6-10.4 - mg/dL * P ROTEIN, TOTAL 7.0 6.1-8.1 - g/dL * A LBUMIN 4.4 3.6-5.1 - g/dL * G LOBULIN 2.6 1.9-3.7 - g/dL (calc ) * A LBUMIN/GLOBULIN RATIO 1.7 1.0-2.5 - (calc) * B ILIRUBIN, TOTAL 0.4 0.2-1.2 - mg/dL * A LKALINE PHOSPHATASE 92 37-153 - U/L * A ST 11 10-35 - U/L * A LT 7 6-29 - U/L * E GFR 88 > OR = 60 - mL/min/1 .73m2 * Zaria Castle 03/29/20 25 02:59:09 PM EDT > pt informed, labs addedThis lab was reviewed by Mavis Ferrer on 03/29/2025 at 17:41 PM EDT ?LAB: CBC (INCLUDES DIFF/PLT) (6399)* Value Reference Range W JOSE BLOOD CELL COUNT 4.4 3.8-10.8 - Thousan d/uL * R ED BLOOD CELL COUNT 3.80 3.80-5.10 - Million/ uL * H EMOGLOBIN 12.4 11.7-15.5 - g/dL * H EMATOCRIT 39.6 35.0-45.0 - % * M CV 104.2 H 80.0-100.0 - fL * M CH 32.6 27.0-33.0 - pg * M CHC 31.3 L 32.0-36.0 - g/dL * R DW 12.1 11.0-15.0 - % * P LATELET COUNT 284 140-400 - Thousand/u L * N EUTROPHILS 63.7 - % * A BSOLUTE NEUTROPHILS 2803 3806-1317 - cells/uL * L YMPHOCYTES 25.7 - % * A BSOLUTE LYMPHOCYTES 0339 096-7389 - cells/uL * M ONOCYTES 8.5 - % * A BSOLUTE MONOCYTES 374 200-950 - cells/uL * E OSINOPHILS 1.6 - % * A BSOLUTE EOSINOPHILS 70 15-500 - cells/uL * B ASOPHILS 0.5 - % * A BSOLUTE BASOPHILS 22 0-200 - cells/uL * M PV 10.3 7.5-12.5 - fL * Zaria Castle N 03/29/20 25 02:59:09 PM EDT > pt informed, labs addedThis lab was reviewed by Mavis Ferrer on 03/29/2025 at 17:41 PM EDT Clinical Notes: improved overall, taking PPI routinely??5.?HTN (hypertension), benign?LAB: COMPREHENSIVE METABOLIC PANEL (45649)* Value Reference Range G LUCOSE 108 H 65-99 - mg/dL * U FELIPA NITROGEN (BUN) 15 7-25 - mg/dL * C REATININE 0.54 L 0.60-0.95 - mg/dL * B UN/CREATININE RATIO 28 H 6-22 - (calc) * S ODIUM 140 135-146 - mmol/L * P OTASSIUM 3.8 3.5-5.3 - mmol/L * C HLORIDE 99 98-110 - mmol/L * C ARBON DIOXIDE 34 H 20-32 - mmol/L * C ALCIUM 10.1 8.6-10.4 - mg/dL * P ROTEIN, TOTAL 7.0 6.1-8.1 - g/dL * A LBUMIN 4.4 3.6-5.1 - g/dL * G LOBULIN 2.6 1.9-3.7 - g/dL (calc ) * A LBUMIN/GLOBULIN RATIO 1.7 1.0-2.5 - (calc) * B ILIRUBIN, TOTAL 0.4 0.2-1.2 - mg/dL * A LKALINE PHOSPHATASE 92 37-153 - U/L * A ST 11 10-35 - U/L * A LT 7 6-29 - U/L * E GFR 88 > OR = 60 - mL/min/1 .73m2 * Zaria Castle N 03/29/20 25 02:59:09 PM EDT > pt informed, labs addedThis lab was reviewed by Mavis Ferrer on 03/29/2025 at 17:41 PM EDT ?LAB: CBC (INCLUDES DIFF/PLT) (6560)* Value Reference Range W JOSE BLOOD CELL COUNT 4.4 3.8-10.8 - Thousan d/uL * R ED BLOOD CELL COUNT 3.80 3.80-5.10 - Million/ uL * H EMOGLOBIN 12.4 11.7-15.5 - g/dL * H EMATOCRIT 39.6 35.0-45.0 - % * M CV 104.2 H 80.0-100.0 - fL * M CH 32.6 27.0-33.0 - pg * M CHC 31.3 L 32.0-36.0 - g/dL * R DW 12.1 11.0-15.0 - % * P LATELET COUNT 284 140-400 - Thousand/u L * N EUTROPHILS 63.7 - % * A BSOLUTE NEUTROPHILS 2803 6039-9275 - cells/uL * L YMPHOCYTES 25.7 - % * A BSOLUTE LYMPHOCYTES 5531 799-3282 - cells/uL * M ONOCYTES 8.5 - % * A BSOLUTE MONOCYTES 374 200-950 - cells/uL * E OSINOPHILS 1.6 - % * A BSOLUTE EOSINOPHILS 70 15-500 - cells/uL * B ASOPHILS 0.5 - % * A BSOLUTE BASOPHILS 22 0-200 - cells/uL * M PV 10.3 7.5-12.5 - fL * Zaria Castle 03/29/20 02:59:09 PM EDT > pt informed, labs addedThis lab was reviewed by Mavis Ferrer on 03/29/2025 at 17:41 PM EDT Clinical Notes: reasonable control for age??6.?Chronic insomnia? Clinical Notes: continue temazepam??7.?BMI less than 19,adult? Clinical Notes: stable for patient and not likely to improve??8.?Murmur? Clinical Notes: chronic, stable on exam. prior echo with AI. Not symptomatic. ?? * Labs: * L ab: TEST AUTHORIZATION Value Reference Range T EST NAME: VITAMIN B12/FOLATE, - * T EST CODE: 7065SB - * C LIENT CONTACT: DR FERRER - * [employer], support 03/17 05:40:07 : This order was created by the Interface.This lab was reviewed by Mavis Ferrer on 03/31/2025 at 10:42 AM EDT ?Lab: VITAMIN B12/FOLATE, SERUM PANEL (7065)* Value Reference Range F OLATE, SERUM >24.0 - ng/mL * V ITAMIN B12 987 062-9446 - pg/mL * [employer], support 03/17 05:40:08 : This order was created by the Interface.This lab was reviewed by Zaria Castle on 04/04/2025 at 14:40 PM EDT * Procedure Codes: G 0439 ANNUAL WELLNESS VST; PPS SUBSQT VST, 1123F ADVANCED DIRECTIVE - HAS A LIVING WILL, G8418 BMI < 22 CALCUATE W/FOLLOWUP, G8510 NEGATIVE SCREENING F/U NOT REQUIRED, G9903 Pt scrn tbco id as non user, G9744 PATIENT NOT ELIG D/T ACTIVE DX HTN * Preventive Medicine: Counseling: L iving will H as living will. Depression Screening: P HQ 2 F eeling down depressed or hopeless N o. Immunizations: i nfluenza H ave you had a flu shot since the most recent April 17 ? U TD. P neumonia vaccine: Status for Older Adults A re you up-to-date on your pneumonia vaccine? yes or no h as had previously, unsure of dates. S hingrix U TD. C OVID C ompleted series. R SV vaccination C ompleted for season. p ast recommended screening age. * Follow Up: 6 Months * * Sign off status: Completed true * Provider: RYAN Harris Date: 0 03/27/2025 Generated for Tucker vences/Ale/Aki on: 0 04/07/2025 06:33 PM EDT History and Physical Notes * HPI (History of Present Illness) Category Sub-Category Detail Notes Category Not es gen 89-year-old female present to FU on chronic disease and for AWV. No new concerns. Denies CP, SOA, ROTH, visual changes Chronic constipation- Ongoing concern. Typical bowel pattern every 2-3 days, hard/formed. Previously linzess without relief. Now on Amitiza, Mag Oxide, Fiber, miralax. She is having BM most days but not always aware of this and is incontinent at times of small formed stool. Urinary Incontinence - following with urology, FU again in May No swallowing difficulty recently Using walker out of house Wound on coccyx is healed continues to have bilat knee pain, tolerable, improves some with therapies Examination Category Sub-Category Detail Notes Category Not es General Examination Heart: Regular Rate and Rhythm, systolic murmur noted Lungs: clear to auscultatio n, Abdomen: soft, NT/ND, BS pres ent Extremities: crepitant knees bila t, no clubbing or edema Skin: without acute rashes Neurologic Exam: Alert and oriented x 3, uses walker Peripheral pulses: normal (2+) bilatera lly neck no thyromegaly, General Pleasant and Coopera tive, NAD on RA, Psych Normal Mood/Affect
[2025-04-07 18:22] VITALS: BP 153/72; PULSE 89; RESP 16; TEMP 36.9; O2SAT 96; BMI 18.1
--- OUTSIDE RECORDS SUMMARY | 2025-04-07 18:32 | XMS_ITS | Encounter Summary ---
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 - [employer] Social History Tobacco Use Types Packs/Day Years Used Date Smoking Tobacco: Never Assessed Comments Unknown Sex and Gender Information Value Date Recorded Sex Assigned at Not on file Legal Sex Female 10:06 AM EDT Gender Identity Not on file Sexual Orientation Not on file documented as of this encounter Plan of Treatment Not on file documented as of this encounter Visit Diagnoses Not on filedocumented in this encounter Care Teams Media Law Faculty Member Relationship Specialty Start Date End Date Anthony Vargas MD PCP - General Family Medicine 02/06/17 10/21/23 documented as of this encounter
--- OUTSIDE RECORDS SUMMARY | 2025-04-07 18:32 | XMS_ITS | Encounter Summary ---
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
--- OUTSIDE RECORDS SUMMARY | 2025-04-07 18:32 | XMS_ITS | Encounter Summary ---
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
--- OUTSIDE RECORDS SUMMARY | 2025-04-07 18:33 | XMS_ITS | Patient Health Record ---
Author Organization [facility] Address [address] [place] [address] Care Team Providers Care Cloth Printing Back Tender Name Role Phone Anthony Vargas Primary Care Provider Unavailabl Alexandria Pardo Unavailable Self Referral, Self Unavailable Unavailable Migration, Provider Unavailable Unavailable Dave Bazzi Unavailable [phone] Allergies No Known Allergies Reason For Referral No Information Medications Medication SIG (Take, Route, Frequency, Duration) Notes Start Date End Date Status Gemtesa 75 MG Tablet 1 tab(s) orally once a day Active MiraLax PRN *Please review and pick correct strength-formulat ion from [employer] options. If intended option is not shown, discontinue and re-order from Quick Search* Active Diclofenac Sodium 1 % Gel as directed applied topically 4 times a day; Duration: 30 days Active Temazepam 15 MG Capsule ; Duration: 30 Days Active Omeprazole 20 MG Capsule Delayed Release TAKE 1 CAPSULE BY MOUTH TWICE DAILY; Duration: 30 Days Active dilTIAZem HCl ER Beads 120 MG Capsule Extended Release 24 Hour 1 cap(s) orally once a day Active hydroCHLOROthiazide 12.5 MG Tablet ; Duration: 90 Days Active Multi Vitamin *Please review and pick correct strength-formulat ion from [employer] options. If intended option is not shown, discontinue and re-order from Quick Search* Active Calcium 500 + D 500 MG-10 MCG TABLET, CHEWABLE 1 TAB(S) CHEWED 2 TIMES A DAY *Please review and pick correct strength-formulat ion from [employer] options. If intended option is not shown, discontinue and re-order from Quick Search* Active Align 4 MG Capsule 1 cap(s) orally once a day Active Social History Tobacco Use: Social History Observation Description Date Details (start date - stop date) Never Smoker NA - NA Social History General Social Info Question Answer Notes Substance use:- Smoking status: nonsmoker Did you have a drink containing alcohol in the p ast year? No Have you used drugs other than those for medical reasons in the past 12 months? No Personal History Marital status Do you have a partner or loved one who provides emotional support or feels safe to talk to? Yes Do you have a partner or loved one who can help with physical tasks (driving, cooking, helping to move) if you are unable to do so for yourself? Yes What is your highest level of education? High school graduation or GED What is your work status? Retired Do you exercise at least 2-3 times per week Yes Physical therapy until recently. Patient does stretches every day. Do you eat fast food more than 2-3 times per week? No Do you drink soda, pop, or sweet drinks (eg coffee) more than 2-3 times per week? No Pepsi once a month Do you eat sweets, deserts, or white breads/rice more than 2-3 times per week? 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 She states she can deal with it as is currently in order to focus more on her knee pain. Will table further workup or intervention until pt so chooses to move forward. 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) Active confirmed Vital Signs Blood pressure diastolic 68 mm Hg 07/06/2024 Height 63 in 07/06/2024 Blood pressure systolic 110 mm Hg 07/06/2024 Weight 99.2 lbs 07/06/2024 BMI 17.57 BMI 07/06/2024 Procedures Procedure Date Ordered Date Performed Result Body Sit e KneLM: Left Knee Injection - Medial (/ G000) 04/22/2024 04/22/2024 50% relief for 3 weeks AnkLL: Left Ankle Injection - Lateral (/ G000) 07/06/2024 07/06/2024 N/A Encounters Encounter Location Date Provider Diagnosis [place] [address] [place] [address] 07/23/2024 Provider Migration Pain in left knee M25.[address] [place] [address] 08/22/[address] [place] [address] [place] [address] 04/22/2024 Dave Bazzi Left lateral ankle p ain M25.572 ; Pain in left knee M25.562 ; Other specified mononeuropathies of left lower limb G57.82 and Ischial bursitis of left side M70.[address] [place] [address] [address] 04/22/2024 Dave Bridges Pain in left knee M25.562 Marleni [place] [address] [place] [address] 07/06/2024 Dave Bridges Left lateral ankle p ain M25.572 ; Pain in left knee M25.562 ; Other specified mononeuropathies of left lower limb G57.82 and Ischial bursitis of left side M70.72 Marleni [place] [address] [place] [address] 07/06/2024 Dave Bridges Pain in left ankle a nd joints of left foot M25.572 Assessments Encounter Date Diagnosis (ICD Code) Assessment Notes Treatment Notes Treatment Clinical Notes Section Notes 07/23/2024 Pain in left knee (ICD-10 - M25.562) stable, continue PT and HEP. 04/22/2024 Pain in left knee (ICD-10 - M25.562) significant relief after medial knee inj, will repeat, continue PT. 04/22/2024 Left lateral ankle pain (ICD-10 - M25.572) stable, moderate improvement after left peroneal tendon inj, continue PT. 04/22/2024 Pain in left knee (ICD-10 - M25.562) 07/06/2024 Pain in left knee (ICD-10 - M25.562) stable, continue PT and HEP. 07/06/2024 Left lateral ankle pain (ICD-10 - M25.572) worsening over peroneal tendons, will repeat left peroneal tendon inj, continue PT. 07/06/2024 Pain in left ankle and joints of left foot (ICD-10 - M25.572) 07/06/2024 Other specified mononeuropathies of left lower limb (ICD-10 - G57.82) 04/22/2024 Other specified mononeuropathies of left lower limb (ICD-10 - G57.82) 04/22/2024 Ischial bursitis of left side (ICD-10 - M70.72) improving after ischial bursa inj. 07/06/2024 Ischial bursitis of left side (ICD-10 - M70.72) improving after ischial bursa inj. Plan Of Treatment Pending Test Test Name Order Date Saphenous Block [E] - Left (48502) 07/13 Urine Drug Testing 05/01/2022 GenL: Left Genicular Block (96977 G000) 08/06/2023 !GenL: Left Genicular *NEUROLYSIS* (6462 4 G10) 09/29/2023 !GenL: Left Genicular *NEUROLYSIS* (6462 4 G10) 03/25/2024 Ankle Tendon/Ligament US - Left (7 6942) 01/13/2023 Ankle Tendon/Ligament US - Left (42) 07/13/2023 PT - Movement Analysis; Eval uation and Treatment (20426, 68412, 40077, 86196, 10713, 66626) 08/06/2023 KneLM: Left Knee Injection - Medial ( G000) 03/25/2024 KneLM: Left Knee Injection - Medial ( G000) 04/22/2024 SapLP: Left Saphenous Nerve Block - Prox imal (26905 G000) 11/23/2023 AnkLL: Left Ankle Injection - Lateral (2 604/ G000) 10/28/2023 AnkLL: Left Ankle Injection - Lateral (2 604/ G000) 07/06/2024 Future Test Test Name Order Date SIJL: Left Sacroiliac joint injection (2 7096 G000) 05/07/2022 HYALF - Left Knee Hyaluronic Acid Injection w/ Fluoro (+68498 & Medication) 08/25/2022 Ankle Injection - Left () 3 Ankle Injection - Left () Neurolysis - Peripheral x 1 - Left (6464 0) 12/22/2022 Knee IA Injection Fluoro [D/E] - Left (2 0610) 12/22/2022 Ischial Bursa Injection [D/E] - Left (20 611) 02/19/2023 Ischial Bursa Injection [D/E] - Left (20 611) 03/19/2023 Insurance Providers Payer Name Payer Address Payer Phone Subscriber Number Group Number Insured Name Patient Relationship to Insured Coverage Start Date Coverage End Date Medicare [place] [address] [place] [phone] [id number] Burton Chavis Self - patient is the insured 2 [facility] [employer] [address] [place] [phone] [id number] Burton Chavis Self - patient is the insured 2 Medical (General) History Medical History History ICD Code Arthritis Surgical History Surgery Date(Month/Year)
--- OUTSIDE RECORDS SUMMARY | 2025-04-07 18:33 | XMS_ITS | Clinical Summary ---
Author Organization [facility] Address [address] [place] [address] Care Team Providers Care Desk Maker Name Role Phone Unavailable Primary Care Provider Unavailabl e Allergies Active Allergy Reactions Criticality Noted Date Comments Oxybutynin GI Intolerance Low 12/12/2021 constipation Streptomycin Unknown - High Severity Low 11/04/2007 Medications Multiple Vitamin (MULTI VITAMIN DAILY PO) Take by mouth Daily. Active Calcium Citrate-Vitamin D (CALCITRATE PLUS D PO) Take by mouth Daily. Active polyethylene glycol (MIRALAX) packet Take 17 g by mouth Daily. Active Probiotic Product (ALIGN PO) Take by mouth Daily. Active Cranberry 200 MG capsule Take by mouth Daily. Active vitamin C (ASCORBIC ACID) 500 MG tablet Take 2 tablets by mouth Daily. Active polycarbophil 625 MG tablet tablet Take by mouth Daily. Active Diclofenac Sodium (VOLTAREN) 1 % gel gelIndications:Hollie maris localized osteoarthritis of both knees Apply 4 g topically to the appropriate area as directed 4 (Four) Times a Day. 150 g 5 12/13/19 22 Active dilTIAZem (CARDIZEM) 120 MG tabletIndications: Essential hypertension Take 1 tablet by mouth 3 (Three) Times a Day. 270 tablet 3 12/03/19 23 Active hydroCHLOROthiazid e (HYDRODIURIL) 12.5 MG tabletIndications: Essential hypertension Take 1 tablet by mouth Daily. 90 tablet 3 12/03/19 23 Active omeprazole (priLOSEC) 20 MG capsule Take 1 capsule by mouth Daily. 30 capsule 2 12/24/19 23 Active temazepam (RESTORIL) 15 MG capsuleIndications :Primary insomnia Take 1 capsule by mouth At Night As Needed for Sleep. 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 Normal LVEF. Essential hypertension 02/13/2017 Mixed hyperlipidemia 02/13/2017 Nonrheumatic aortic valve insufficiency 02/14/20 Immunizations Immunization Administration Dates Next Due COVID-19 (MODERNA) 1st,2nd,3 rd Dose Monovalent 11/18/2021,06/12/2021,09/26/2020,2020 COVID-19 (MODERNA) BIVALENT 12+YRS 05/07/2022 Fluad Quad 65+ 05/16/2022 Fluzone High-Dose 65+YRS 05/18/2018,05/06/2017 Shingrix 08/19/2018,06/02/2018 Td (TDVAX) 10/25/1996 Family History Medical History Relation Name Comments Heart attack Father Arrhythmia Mother Relation Name Status Comments Father Mother Social History Tobacco Use Types Packs/Day Years Used Date Smoking Tobacco: Never Smokeless Tobacco: Never Alcohol Use Standard Drinks/Week Comments No 0 (1 standard drink = 0.6 oz pur e alcohol) PHQ-2 Answer Date Recorded Retired PHQ-9: Brief Depression Severity Measure Score 0 06/17/2022 Abuse Screen Answer Date Recorded Unsafe at Home or Work/School Not on file Feels Threatened by Someone? Not on file 04/2023 Does Anyone Keep You from Co ntacting Others or Doint Things Outside the Home? Not on file 05/25/2023 Physical Sign of Abuse Present Not on file 1 Housing Stability Answer Date Recorded Current Living Arrangements Not on file 04/2023 Potentially Unsafe Housing Conditions Not on efren e 05/25/2023 Family and Community Support Answer Nando e Recorded Help with Day-to-Day Activities Not on file 05/25/2023 Lonely or Isolated Not on file 05/25/2023 Employment Answer Date Recorded Do you want help finding or keeping work or a adamaris b? Not on file 05/25/2023 Disabilities Answer Date Recorded Concentrating, Remembering, or Making Decisions Difficulty Not on file 05/25/2023 Doing Errands Independently Difficulty Not on fi le 05/25/2023 Education Answer Date Recorded Help with school or training? Not on file Preferred Language Not on file 05/25/2023 Comments Unknown Sex and Gender Information Value Date Recorded Sex Assigned at Not on file Legal Sex Female 10:06 AM EDT Gender Identity Not on file Sexual Orientation Not on file Last Filed Vital Signs Vital Sign Reading Time Taken Comments Blood Pressure 138/64 12/02/2022 2:18 PM EDT Pulse 78 12/02/2022 2:18 PM EDT Temperature 36.7 C (98 F) 12/02/2022 2:18 PM EDT Respiratory Rate 14 12/02/2022 2:18 PM EDT Oxygen Saturation 95% 12/02/2022 2:18 PM EDT Inhaled Oxygen Concentration - - Weight 44 kg (97 lb) 12/02/2022 2:18 PM EDT Height 160 cm (5' 3 ) 12/02/2022 2:18 PM EDT Body Mass Index 17.18 12/02/2022 2:18 PM EDT Plan of Treatment Health Maintenance Due Date Last Done Comments Pneumococcal Vaccine 50+ (1 of 1 - PCV) 1985 TDAP/TD VACCINES (2 - Tdap) 10/25/2006 10/25/1996 RSV Vaccine - Adults (1 - 1- dose 75+ series) 2010 DXA SCAN 01/11/2021 01/11/2019, 01/27/2017 ANNUAL WELLNESS VISIT 06/17/2023 06/17/2022 COVID-19 Vaccine ( - 2023-2 5 season) 2024 05/07/2022, 11/18/2021, 06/12/2021, Additional history exists LIPID PANEL 05/11/2024 05/11/2023, 11/15, 12/12/2021, Additional history exists INFLUENZA VACCINE 05/17/2025 05/26/2024, , 05/11/2023, Additional history exists ZOSTER VACCINE Completed 08/19/2018, 06/02/2018 Procedures Procedure Name Priority Date/Time Associated Diagnosis Comments LIPID PANEL Routine 12/02/2022 3:05 PM EDT Mixed hyperlipidemia Essential hypertension Underweight on examination from Last 3 Months or Most Recently Relevant to Health Maintenance Results * (ABNORMAL) Lipid Panel (12/02/2022 3:05 PM EDT) Total Cholesterol 197 100 - 199 mg/dL [facility] Triglycerides 102 0 - 149 mg/dL [facility] HDL Cholesterol 78 >39 mg/dL [facility] VLDL Cholesterol Wilberto 18 5 - 40 mg/dL [facility] LDL Chol Calc (NIH) 101(H) 0 - 99 mg/dL [facility] Blood 12/02/2022 3:05 PM EDT 12/02/2022 Narrative [facility] (AMBULATORY) - 12/03/2022 9:11 AM EDT Performed at: 01 - [address] [id number] Humidifier Maintenance Worker: Hal Chi PhD, Phone: [phone] Patient Fasting: N Anthony Vargas MD LAB BLOOD ORDERABLES Fin al Result [facility] (AMBULATORY) [address] [place] [address], [facility] [address] [place] [address], [place] [phone] from Last 3 Months or Most Recently Relevant to Health Maintenance Insurance MEDICARE A & B Member Subscriber Plan / Payer (Ef fective 2000-Present) Name:Gabi Chavis Member ID:[id number] Relation to Subscriber:Self Name:Gabi Chavis Subscriber ID:[id number] Payer ID:[id number] Group ID:Not on file Type:Not on file Address[address] [address] [place] [address]
--- OUTSIDE RECORDS SUMMARY | 2025-04-07 18:33 | XMS_ITS | Patient Health Record ---
Author Organization [facility] Address [address] [place] [address] Care Team Providers Care Coremaker Helper Name Role Phone Carissa Mavis Primary Care Provider [phone] MAVIS FERRER Unavailable Unavaila ble Anthony Bess Unavailable [phone] Migration, Provider Unavailable Unavailable Allergies No Known Allergies Results Component Value Reference Range Notes CBC (INCLUDES DIFF/PLT) (129 9) Reviewed date:03/29/2025 05:41:28 PM Interpretation: Performing Lab:CB, [facility] [address], [place] ZafsHN[address] Kaleb Murillo Notes/Report: NON-FASTING; NON-FASTING WHITE BLOOD [...] MPV 10.3 7.5-12.5 fL ABSOLUTE NEUTROPHILS [phone] cells/uL ABSOLUTE LYMPHOCYTES 5965 020-1818 cells/uL ABSOLUTE MONOCYTES 374 200-950 cells/uL ABSOLUTE EOSINOPHILS 70 15-500 cells/uL ABSOLUTE BASOPHILS 22 0-200 cells/uL NEUTROPHILS 63.7 LYMPHOCYTES 25.7 MONOCYTES 8.5 EOSINOPHILS 1.6 BASOPHILS 0.5 COMPREHENSIVE METABOLIC PANE L (69719) Reviewed date:03/29/2025 05:41:36 PM Interpretation: Performing Lab:[facility] [employer] [id number] +[facility] CampusJdtpFN[address] Kaleb Murillo Notes/Report: NON-FASTING; NON-FASTING GLUCOSE 108 [...] 11 10-35 U/L ALT 7 6-29 U/L Barium Swallow Reviewed date:05/12/2024 02:25:07 PM Interpretation: Performing Lab: Notes/Report: MODIFIED BARIUM SWALLOW Reviewed date:06/10/2024 06:39:41 PM Interpretation: Performing Lab: Notes/Report: MODIFIED BARIUM SWALLOW Reviewed date:06/10/2024 06:39:41 PM Interpretation: Performing Lab: Notes/Report: TEST AUTHORIZATION Reviewed date:03/31/2025 10:42:24 AM Interpretation: Performing Lab:[facility] [employer] [id number] +[facility], [facility] CampusVvfoHK[address] Kaleb Murillo Notes/Report: NON-FASTING; NON-FASTING TEST NAME: VITAMIN B12/FOLATE, TEST CODE: [id number] CLIENT CONTACT: DR FERRER REPORT ALWAYS MESSAGE SIGNATURE The laboratory testing on this patient was verbally requested or confirmed by the ordering physician or his or her authorized retail field representative after contact with an employee of [facility]. Federal regulations require that we maintain on file written authorization for all laboratory testing. Accordingly we are asking that the ordering physician or his or her authorized retail field representative sign a copy of this report and promptly return it to the client analyst. Signature: COMMENT Please fax this signed form to [phone]. Please do not attempt to return this document by other methods. Documents will not be viewed by a retail field representative. Please do not use this fax number for other service requests. VITAMIN B12/FOLATE, SERUM [facility] (7065) Reviewed date:04/04/2025 02:40:00 PM Interpretation: Performing Lab:[facility] [id number] [employer], [facility] CampusPgiuAQ[address] Kaleb Murillo Notes/Report: NON-FASTING; NON-FASTING VITAMIN B12 869 123-8858 pg/mL FOLATE, SERUM >24.0 Reference Range Low: <3.4 Borderline: 3.4-5.4 Normal: >5.4 COMPREHENSIVE METABOLIC PANE (25397) Reviewed date:09/16/2024 02:59:54 PM Interpretation: Performing Lab:[facility] [id number] [facility] CampusUuciQN[address] Kaleb Murillo Notes/Report: NON-FASTING; NON-FASTING GLUCOSE 99 65-99 mg/dL Fasting reference interval UREA NITROGEN (BUN) 16 7-25 mg/dL CREATININE 0.49 0.60-0.95 mg/dL EGFR 90 > OR = 60 mL/min/1.73m2 BUN/CREATININE RATIO 33 6-22 (calc) SODIUM 141 135-146 mmol/L POTASSIUM 4.3 3.5-5.3 mmol/L CHLORIDE 101 98-110 mmol/L CARBON DIOXIDE 35 20-32 mmol/L CALCIUM 10.1 8.6-10.4 mg/dL PROTEIN, TOTAL 7.3 6.1-8.1 g/dL ALBUMIN 4.5 3.6-5.1 g/dL GLOBULIN 2.8 1.9-3.7 g/dL (calc) ALBUMIN/GLOBULIN RATIO 1.6 1.0-2.5 (calc) BILIRUBIN, TOTAL 0.4 0.2-1.2 mg/dL ALKALINE PHOSPHATASE 84 37-153 U/L AST 11 10-35 U/L ALT 8 6-29 U/L CBC (INCLUDES DIFF/PLT) (639 9) Reviewed date:09/16/2024 02:59:54 PM Interpretation: Performing Lab:[facility], [facility], [facility]icsQcjvSH[address] Kaleb Murillo Notes/Report: NON-FASTING; NON-FASTING WHITE BLOOD CELL COUNT 4.9 3.8-10.8 Thousand/ uL RED BLOOD CELL COUNT 3.82 3.80-5.10 Million/uL HEMOGLOBIN 12.5 11.7-15.5 g/dL HEMATOCRIT 38.2 35.0-45.0 % MCV 100.0 80.0-100.0 fL MCH 32.7 27.0-33.0 pg MCHC 32.7 32.0-36.0 g/dL For adults, a slight decrease in the calculated MCHC value (in the range of 30 to 32 g/dL) is most likely not clinically significant; however, it should be interpreted with caution in correlation with other red cell parameters and the patient's clinical condition. RDW 11.8 11.0-15.0 % PLATELET COUNT 314 140-400 Thousand/uL MPV 10.1 7.5-12.5 fL ABSOLUTE NEUTROPHILS 3479 9707-0710 cells/uL ABSOLUTE LYMPHOCYTES 5906 164-6814 cells/uL ABSOLUTE MONOCYTES 323 200-950 cells/uL ABSOLUTE EOSINOPHILS 29 15-500 cells/uL ABSOLUTE BASOPHILS 20 0-200 cells/uL NEUTROPHILS 71 LYMPHOCYTES 21.4 MONOCYTES 6.6 EOSINOPHILS 0.6 BASOPHILS 0.4 Reason For Referral Reason Dr Gan at [facility] Diagnosis 1 Skin lesion (L98.9) Referral Organization [facility] Referring Provider First Name Mavis Referring Provider Last Name Carissa Referring Provider [facility] ctice Referred Organization [facility] Referred Address [address] [facility] [address] [place], [place],[address], Referred Provider Specialty Dermatology General Notes Afia Gonzalez 2023 03:31:11 PM >sent to Dr. Gan- They will contact patient with appt Referral Priority Routine Referral Appointment Date 07/05/2024 Reason Barium Swallow/UGI Diagnosis 1 Esophageal dysphagia (R13.19) Referral Organization [facility] Referring Provider First Name Mavis Referring Provider Last Name Carissa Referring Provider [facility] ctice Referred Organization [facility] Referred Address [address] [facility] [address] [place], [place],[address], Referred Provider Specialty Diagnostic R adiology General Notes Afia Gonzalez 2023 03:25:27 PM >sent to [facility] to schedule Referral Priority Routine Reason [facility] Podiatry Diagnosis 1 Hypertrophic toenail (L60.2) Referral Organization [facility] Referring Provider First Name Mavis Referring Provider Last Name Carissa Referring Provider [facility] ctice Referred Organization [facility] Referred Address [address] [facility] [address] [place],[address], General Notes Afia Gonzalez 2024 12:35:57 PM >sent to Podiatry Referral Priority Routine Referral Appointment Date 01/18/2025 Reason [facility] Wound care Ple ase call her cell phone to schedule [phone] Diagnosis 1 Wound of sacral mini on, subsequent encounter (S31.000D) Referral Organization [facility] Referring Provider First Name Mavis Referring Provider Last Name Carissa Referring Provider [facility] ctice Referred Organization [facility] Referred Address [address] [facility] [address] [place],[address], Referred Provider Specialty Physical Med icine and Rehabilitation General Notes Afia Gonzalez 2024 12:33:00 PM >sent to [facility] rehab Referral Priority Routine Medications Medication SIG (Take, Route, Frequency, Duration) Notes Start Date End Date Status Lubiprostone 24 MCG 1 capsule with food and water Orally Twice a day; Duration: 30 days 03/27/2025 Active dilTIAZem HCl 120 MG TAKE 1 TABLET BY MOUTH THREE TIMES DAILY; Duration: 90 Active Temazepam 15 MG 1 cap(s) orally once a day (at bedtime); Duration: 30 days 11/29/2024 Active Omeprazole 20 MG 1 cap(s) orally once a day; Duration: 90 days 06/11/2024 Active Myrbetriq 25 MG 1 tab(s) orally once a day; Duration: 30 days Active Nystatin 838137 UNIT/GM 1 application Externally Twice a day; Duration: 14 days 01/12/2025 Active Cranberry 1 PO QAM *Please review a nd pick correct strength-formulatio n from Umthunzi options. If intended option is not shown, discontinue and re-order from Quick Search* Active Magnesium Oxide 400 MG 2 tabs orally once a day Active Metamucil Smooth Texture 58.6 % as directed [...] review and pick correct strength-formulatio n from Umthunzi options. If intended option is not shown, discontinue and re-order from Quick Search* Active Align 4 MG 1 CAP(S) ORALLY ONCE A DAY *Please review and pick correct strength-formulatio n from Umthunzi options. If intended option is not shown, discontinue and re-order from Quick Search* Active Immunizations Vaccine Route Administration Date Status Comme nts SHINGRIX Unknown 06/02/2018 Administered SHINGRIX Unknown 08/19/2018 Administered Fluzone High Dose IM Intramuscular 05/11/2023 Administered Arexvy ID Intradermal 08/24/2023 Administered Social History Tobacco Use: Social History Observation Description Date Details (start date - stop date) Never Smoker NA - NA Smoking: Question Answer Notes Are you a: nonsmoker Problems Problem Type SNOMED Code ICD Code Onset Dates Problem Status W/U Status Risk Notes Problem Hypercalcemia (24430022) Hypercalcemia (E83.52) Active confirmed Problem Dysuria (64563346) Dysuria (R30.0) Active confirmed Problem Functional urinary incontinence (618523275) Functional urinary incontinence (R39.81) Active confirmed Problem Essential hypertension (82265333) HTN (hypertension), benign (I10) Active confirmed Problem Chronic pain (76283426) Other chronic pain (G89.29) Active confirmed Problem Osteoarthritis of knee (518347116) Primary osteoarthritis of left knee (M17.12) Active confirmed Problem Chronic insomnia (205104700) Chronic insomnia (F51.04) Active confirmed Problem Hyperlipidemia (62549403) Other and unspecified hyperlipidemia (E78.5) Active confirmed Problem History of urinary tract infection (4034034137490) History of UTI (Z87.440) Active confirmed Problem Vaginal discharge (816993495) Vaginal discharge (N89.8) Active confirmed Problem Diverticular disease of colon (785911890) Diverticulosis (K57.90) Active confirmed Problem Advanced age (85705732) Advanced age (R54) Active confirmed Problem Sciatica (47495259) Acute midline low back pain with right-sided sciatica (M54.41) Active confirmed Vital Signs Heart Rate 98 /min 03/27/2025 Temperature 97.2 degrees Fahrenheit 03/27/2025 Blood pressure diastolic 60 mm Hg 03/27/2025 Height 61.5 in 03/27/2025 Blood pressure systolic 150 mm Hg 03/27/2025 Weight 99.8 lbs 03/27/2025 BMI 18.55 kg/m2 03/27/2025 Encounters Encounter Location Date Provider Diagnosis [facility] [address] [facility] [address] [place] [address] 11/19/2024 Provider Migration [facility] [address] [facility] [address] [place] [address] 04/28/2024 Mavis Ferrer Chronic constipation K59.09 ; Functional urinary incontinence R39.81 ; Skin lesion L98.9 ; Esophageal dysphagia R13.19 and HTN (hypertension), benign I10 [facility] [address] [facility] [address] [place] [address] 09/15/2024 Mavis Riveraence Functional urinary incontinence R39.81 ; Chronic constipation K59.09 ; Esophageal dysphagia R13.19 ; HTN (hypertension), benign I10 and Chronic insomnia F51.04 [facility] [address] [facility] [address] [place] [address] 11/28/2024 Mavis Carissa Pain in right knee M25.561 ; Pain in left knee M25.562 ; Other chronic pain G89.29 ; Hypertrophic toenail L60.2 and Wound of sacral region, initial encounter S31.000A [facility] [address] [facility] [address] [place], [place] [address] 01/12/2025 Mavis Carissa Pain in right knee M25.561 ; Pain in left knee M25.562 ; Other chronic pain G89.29 ; Wound of sacral region, subsequent encounter S31.000D and Dermatitis L30.9 [facility] [address] [facility] [address] [place], [place] [address] 03/27/2025 Mavis Carissa Chronic constipation K59.09 ; Medicare annual wellness visit, subsequent Z00.00 ; Functional urinary incontinence R39.81 ; Esophageal dysphagia R13.19 ; HTN (hypertension), benign I10 ; Chronic insomnia F51.04 ; BMI less than 19,adult Z68.1 ; Murmur R01.1 and Advanced age R54 [facility] [address] [facility] [address] [place] [address] 04/15/2024 Mavis Carissa [facility] [address] [facility] [address] [place] [address] 04/29/2024 Mavis Carissa [facility] [address] [facility] [address] [place] [address] 04/29/2024 Mavis Carissa Esophageal dysphagia R13.19 [facility] [address] [address] 05/11/2024 Mavis Carissa Esophageal dysphagia R13.19 [facility] [address] [facility] [address] [place] [address] 05/13/2024 Mavis Carissa [facility] [address] [address] 05/23/2024 Anthony Bess [facility] [address] [facility] [address] [place] [address] 06/10/2024 Mavis Carissa [facility] [address] [place] [address] 06/13/2024 Mavis Carissa [facility] [place] [address] [facility] [address] [place] [address] 08/03/2024 Mavis Carissa [facility] [address] [place] [address] 09/15/2024 Mavis Carissa [facility] [place] [address] [facility] [address] [place] [address] 10/10/2024 Mavis Carissa [facility] [address] [place] [address] 11/28/2024 Anthony Bess [facility] [address] [place] [address] 12/12/2024 Mavis Carissa [facility] [address] [place] [address] 01/12/2025 Mavis Carissa Wound of sacral region, subsequent encounter S31.000D [facility] [address] [place] [address] 02/06/2025 Mavis Carissa [facility] [address] [place] [address] 02/23/2025 Mavis Carissa Assessments Encounter Date Diagnosis (ICD Code) Assessment Notes Treatment Notes Treatment Clinical Notes Section Notes 04/28/2024 Functional urinary incontinence (ICD-10 - R39.81) again discussed medication MOA. Continue Toviaz at least until her URO FU next month. Only using estradiol topical PRN and discussed that would not notice any clinical difference that way...encourage d to use 2 times per week at bedtime 04/29/2024 Esophageal dysphagia (ICD-10 - R13.19) 05/11/2024 Esophageal dysphagia (ICD-10 - R13.19) 09/15/2024 Functional urinary incontinence (ICD-10 - R39.81) encouraged to continue topical estrogen and Myrbetriq 04/28/2024 Chronic constipation (ICD-10 - K59.09) discussed Amitiza MOA and that it must be taken routinely BID with a meal. Can use MOM as needed. If no improvement, increase to 24mcg BID 09/15/2024 Chronic constipation (ICD-10 - K59.09) continue current regimen but encouraged better fluid intake and increasing miralax to BID 11/28/2024 Pain in right knee (ICD-10 - M25.561) 11/28/2024 Pain in left knee (ICD-10 - M25.562) 01/12/2025 Pain in right knee (ICD-10 - M25.561) IM steroid injection today, discussed short-lived relief if any and risks of repeating steroids too often 01/12/2025 Pain in left knee (ICD-10 - M25.562) 01/12/2025 Wound of sacral region, subsequent encounter (ICD-10 - S31.000D) 03/27/2025 Chronic constipation (ICD-10 - K59.09) continue [...] topical estrogen and Myrbetriq, FU with URO 01/12/2025 Other chronic pain (ICD-10 - G89.29) 11/28/2024 Other chronic pain (ICD-10 - G89.29) 09/15/2024 Esophageal dysphagia (ICD-10 - R13.19) improved overall, taking PPI routinely 04/28/2024 Skin lesion (ICD-10 - L98.9) will arrange dermatology appt 04/28/2024 Esophageal dysphagia (ICD-10 - R13.19) UGI/Barium swallow 09/15/2024 HTN (hypertension), benign (ICD-10 - I10) reasonable control for age 0411/28/2024 Hypertrophic toenail (ICD-10 - L60.2) 01/12/2025 Wound of sacral region, subsequent encounter (ICD-10 - S31.000D) again reviewed importance of good PO intake, especially protein to help with wound healing. refer for wound management 03/27/2025 Esophageal dysphagia (ICD-10 - R13.19) improved overall, taking PPI routinely 03/27/2025 HTN (hypertension), benign (ICD-10 - I10) reasonable control for age 0411/28/2024 Wound of sacral region, initial encounter (ICD-10 - S31.000A) Rec use of A&D ointment which should be more gentle than zinc oxide, cleanse carefully with baby wipes, return precautions reviewed 01/12/2025 Dermatitis (ICD-10 - L30.9) 09/15/2024 Chronic insomnia (ICD-10 - F51.04) continue temazepam 04/28/2024 HTN (hypertension), benign (ICD-10 - I10) reasonable control for age 0803/27/2025 Chronic insomnia (ICD-10 - F51.04) continue temazepam 03/27/2025 BMI less than 19,adult (ICD-10 - Z68.1) stable for patient and not likely to improve 03/27/2025 Murmur (ICD-10 - R01.1) chronic, stable on exam. prior echo with AI. Not symptomatic. 03/27/2025 Advanced age (ICD-10 - R54) Plan Of Treatment Pending Test Test Name Order Date Barium : Upper GI Series 04/29/2024 Speech Therapy Eval and Treatment 2023 Physical Therapy : Wound Care 01/12/2025 Physical Therapy Eval and Treat 11/29/19 Insurance Providers Payer Name Payer Address Payer Phone Subscriber Number Group Number Insured Name Patient Relationship to Insured Coverage Start Date Coverage End Date [place] [address] [place] [address] [id number] Gabi Chavis Self - patient is the insured [employer] [address] [address] [place] [address] [id number] Gabi Chavis Self - patient is the insured [employer] [address] [place] [address] [address] [place] [address] [phone] ACL Gabi Chavis Self - patient is the insured Medications Administered Medication Instructions Date of Administration Dosage Notes Dexamethasone 4mg Injection 08/04/2023 4 mg Dexamethasone 4mg Injection 01/12/2025 4 mg Medical (General) History Medical History History ICD Code Hypertension Hyperlipidemia Diverticulitis Degenerative arthritis Colitis Heart murmur, aortic insufficiency Surgical History Surgery Date(Month/Year) T and A 1955 Total Hysterectomy Fistula cholecystectomy 2007 Hernia removal 2007 Hospitalization History Reason Date(Month/Year) above surgeries 2008
[2025-04-07 19:00] VITALS: BP 142/70; PULSE 71; O2SAT 96
--- NOTE | 2025-04-07 19:20 | CT_ITS ---
PROCEDURE INFORMATION: Exam: CT Abdomen And Pelvis With Contrast Exam date and time: 04/07/2025 9:06 PM Age: 89 years old Clinical indication: Abdominal pain; Additional info: Left lower quadrant pain, left flank pain TECHNIQUE: Imaging protocol: Computed tomography of the abdomen and pelvis with contrast. Radiation optimization: All CT scans at this facility use at least one of these dose optimization techniques: automated exposure control; mA and/or kV adjustment per patient size (includes targeted exams where dose is matched to clinical indication); or iterative reconstruction. Contrast material: ISOVUE; Contrast volume: 75 ml; Contrast route: IV; COMPARISON: CT ABDOMEN PELVIS W CON 06/23/2023 8:45 AM FINDINGS: Lungs: Lung bases are clear. Liver: Subcentimeter low-density lesions superior liver on axial image 19 too small to characterize but likely a cyst and is stable. Liver otherwise unremarkable. Gallbladder and biliary ducts: Status post cholecystectomy. No evident bile duct dilatation allowing for prior cholecystectomy. Pancreas: Normal. No ductal dilation. Spleen: Normal. No splenomegaly. Adrenal glands: Normal. No mass. Kidneys and ureters: Stable 2 cm cyst in the lateral right kidney. No follow-up advised. Kidneys and ureters otherwise unremarkable with no obstructing stones or uropathy. Stomach and bowel: Extensive diverticula in the sigmoid colon. Multiple mildly fluid distended small bowel loops noted in the abdomen and pelvis. GI tract structures otherwise unremarkable with no evident wall thickening allowing for incomplete distention. Assessment of the GI tract structures substantially limited due to lack of enteric contrast combined with relative paucity of intra-abdominal fat. Appendix: No evidence of appendicitis. Intraperitoneal space: Small amount of pelvic free fluid. Vasculature: Unremarkable. No abdominal aortic aneurysm. Lymph nodes: Unremarkable. No enlarged lymph nodes. Urinary bladder: Unremarkable as visualized. Reproductive: Hysterectomy. Bones/joints: Unremarkable. No acute fracture. Soft tissues: Unremarkable. IMPRESSION: 1. Diverticulosis of the sigmoid. 2. Small amount of pelvic free fluid. 3. No other definite acute abnormalities but assessment of the GI tract structures and especially the left side of the colon substantially limited due to lack of enteric contrast combined with paucity of intra-abdominal fat tissue. 4. Consider short-term follow-up CT in 2-4 weeks or sooner if clinically indicated following a full enteric contrast prep if persistent or worsening symptoms.
[2025-04-07 19:30] VITALS: BP 150/77; PULSE 78; O2SAT 95
[2025-04-07] MEDS: METHOCARBAMOL 500MG TABLET 1000 MG PO (19:33)
[2025-04-07 19:43] LABS: Microscopic, Urine URINE MICROSCOPIC (MICROSCOPIC)
[2025-04-07 19:45] LABS: Bilirubin,Urine Negative (Negative); Color,Urine YELLOW (Yellow); Glucose,Urine (UA) Negative (Negative); Ketones,Urine Negative (Negative); Leukocyte Esterase,Urine 1+ (Negative); PH,Urine 7.0 (5.0-8.5); Protein,Urine Negative (Negative); Specific Gravity, Urine 1.015 (1.005-1.030); Urobilinogen,Urine 0.2 EU/dl (0.2)
[2025-04-07 19:53] LABS: RBC,Urine Occasional #/hpf (0-3)
[2025-04-07 19:54] LABS: Amorphous Sediment,Urine 1+ /lpf; Bacteria,Urine 4+ /lpf
[2025-04-07 21:07] LABS: Hematocrit 32.6 % (37.0-47.0); Hemoglobin 11.0 g/dL (12.2-16.2); Immature Granulocytes % 0.3 %; Mean Corpuscular HGB Conc 33.7 g/dL (31.8-35.4); Mean Corpuscular Hemoglobin 32.4 pg (27.0-31.2); Mean Corpuscular Volume 96.2 fl (81-99); Nucleated Red Blood Cells % 0 %; Platelet Count 249 K/mm3 (142-424); Red Blood Count 3.39 M/mm3 (4.20-5.40); Red Cell Distribution Width-SD 45.6 fL; White Blood Count 13.6 K/mm3 (4.8-10.8)
[2025-04-07] MEDS: SODIUM CHLORIDE 0.9% 10ML SYR (RAD ONLY) 10 ML IV (21:08)
[2025-04-07] MEDS: IOPAMIDOL-370 (76%);100ML BOTTLE 75 ML IV (21:08)
[2025-04-07 21:17] LABS: Alanine Aminotransferase 11 U/L (12-78); Albumin Level 3.9 g/dl (3.5-5.0); Albumin/Globulin Ratio 1.4 (1.1-1.8); Alkaline Phosphatase 98 U/L (38-126); Anion Gap 8.5 mEq/L (5-15); Aspartate Amino Transferase 21 U/L (14-36); Bilirubin,Total 0.4 mg/dl (0.2-1.3); Blood Urea Nitrogen 11 mg/dl (7-17); Calcium 8.4 mg/dl (8.4-10.2); Carbon Dioxide 31 mmol/L (22.0-30.0); Chloride 102 mmol/L (98-107); Creatine Kinase 30 U/L (30-135); Creatinine Clearance Estimated 27 mL/min (50-200); Creatinine,Serum 0.40 mg/dl (0.52-1.04); Estimated Glomerular Filt Rate 150 ml/min (>60); GFR (African American) 182 ML/MIN (>60); Globulin 2.8 g/dL (1.3-3.2); Glucose 92 mg/dl (74-100); Lipase 16 U/L (23-300); Magnesium 1.9 mg/dl (1.6-2.3); Potassium 3.5 mmoL/L (3.5-5.1); Sodium 138 mmol/L (136-145); Total Protein,Serum 6.7 g/dl (6.3-8.2)
[2025-04-07 22:31] VITALS: BP 150/77; PULSE 78; RESP 15; TEMP 36.7; O2SAT 94
--- NOTE | 2025-04-08 01:17 | [facility].EDGENADL ---
Discharge Plan Disposition Patient Disposition: Home, Self-Care Condition: Good Prescriptions Prescriptions: New methocarbamol 1,000 mg tablet 1,000 mg PO Q8H Qty: 90 0RF sulfamethoxazole-trimethoprim 800-160 mg tablet 1 tab PO BID 5 Days Qty: 10 0RF No Action temazepam 15 mg capsule 15 mg PO HS Patient Comments: TAKE 1 CAPSULE BY MOUTH AT BEDTIME diltiazem HCl 120 mg tablet 120 mg PO ONCE Patient Comments: TAKE 1 TABLET BY MOUTH THREE TIMES DAILY diclofenac sodium 1 % gel topical QID PRN Patient Comments: APPLY TOPICALLY TO AFFECTED AREA 4 TIMES DAILY FOR KNEE/ANKLE PAIN DIRECTED Align (B.infantis) 4 mg capsule 4 mg PO DAILY acetaminophen [Tylenol Extra Strength] 500 mg tablet 500 mg PO Q6H PRN (Reason: Pain) cranberry 500 mg capsule 500 mg PO BID Rx Instructions: administer with meals mirabegron [Myrbetriq] 50 mg tablet extended release 24 hr 50 mg PO DAILY Metamucil 3.4 gram/5.4 gram powder 1 tbsp PO DAILY Rx Instructions: mix into at least 8 oz of water or juice before administering magnesium aspart,citrate,oxide 400 mg magnesium capsule 400 mg PO HS ciclopirox 0.77 % cream 1 applic topical BID 180 Days Qty: 90 1RF multivitamin tablet 1 tab PO DAILY estradiol 0.01 % (0.1 mg/gram) cream See Rx Instructions .ROUTE .COMPLEX Qty: 43 0RF Dose Instruction: USE 0.5 APPLICATORFUL A BLUEBERRY SIZED PORTION OF CREAM IN THE VAGINA TWICE WEEKLY Rx Instructions: USE 0.5 APPLICATORFUL A BLUEBERRY SIZED PORTION OF CREAM IN THE VAGINA TWICE WEEKLY calcium carbonate-vitamin D3 1 EACH tablet 1 each PO 0800,1200 Referrals Follow up/Referrals: Alecia Ferrer APRN [Primary Care Provider, Medical] - See instructions Activity Restrictions/Add. Instructions Additional Instructions/Restrictions: Your CT scans were negative. Your labs look good. If you have any new or worsening symptoms please return. Clinical Impressions Clinical Impression: Acute left lower quadrant pain, Acute left flank pain, Urinary tract infection Print Language Print Language: Divehi Discharge ED Provider: Deven Manuel Adult HPI General Chief complaint: PAIN Stated complaint: Pain in left leg and lower back,no injury Time Seen by Provider: 04/07/25 19:07 Mode of Arrival: Ambulatory Source of Information: Patient and Relative Description of Symptoms (Recalled from ER Triage Doc. by RN): patient presents to the ED with complaints of low back pain, and 10/10 poain in her left hip. Patient has no history of falls. The pain started today and has gotten worse as the day went on. She also stated she has taken 6 tylenols since 10 am. History of Present Illness HPI narrative: This is an 89-year-old female patient who is presenting to the emergency department today for evaluation of left flank pain and left lower quadrant abdominal pain. She states this pain has been going on for quite some time. She states that it is worsened over the period of several months and tonight became bearable. She is not having any associated nausea, vomiting, or diarrhea. Her pain is not postprandial in nature. She is having no dysuria, hematuria, or increased urinary frequency. She denies saddle anesthesia, lower extremity radiculopathy, lower extremity numbness and tingling, or lower extremity weakness. Her pain is not exacerbated by movement. She has tried conservative management at home without any improvement in symptoms. No fevers. Related Data Home Medications ?Medication ?Instructions ?Recorded ?Confirmed multivitamin 1 tab PO DAILY Supplement 01/26/18 04/07/25 calcium 1,000 mg (as 1 each PO 0800,1200 Supplement 08/20/19 04/07/25 carbonate)-vitamin D3 20 mcg (800 unit) tablet Bifidobacterium infantis 4 mg 4 mg PO DAILY 06/30/23 01/18/25 capsule (Align (B.infantis)) diclofenac sodium 1 % topical gel topical QID PRN 06/30/23 01/18/25 diltiazem HCl 120 mg tablet 120 mg PO ONCE 06/30/23 04/07/25 temazepam 15 mg capsule 15 mg PO HS 06/30/23 04/07/25 acetaminophen 500 mg tablet 500 mg PO Q6H PRN Pain 01/18/25 04/07/25 (Tylenol Extra Strength) cranberry 500 mg capsule 500 mg PO BID 01/18/25 04/07/25 magnesium aspart,citrate,oxide 400 mg PO HS 01/18/25 04/07/25 mirabegron 50 mg tablet,extended 50 mg PO DAILY 01/18/25 01/18/25 release 24 hr (Myrbetriq) psyllium husk 3.4 gram/5.4 gram 1 tbsp PO DAILY 01/18/25 04/07/25 oral powder (Metamucil) Previous Rx's ?Medication ?Instructions ?Recorded estradiol 0.01% (0.1 mg/gram) See Rx Instructions .Route 07/22/24 vaginal cream .COMPLEX #43 grams ciclopirox 0.77 % topical cream 1 applic topical BID fungal nails 01/18/25 6 months #90 grams methocarbamol 1,000 mg tablet 1,000 mg PO Q8H #90 tabs 04/07/25 sulfamethoxazole 800 1 tab PO BID 5 days #10 tabs 04/08/25 mg-trimethoprim 160 mg tablet Allergies Allergy/AdvReac Type Severity Reaction Status Date / Time streptomycin Allergy Intermediate NUMBNESS Verified 01/18/25 14:30 IN FACE homatropine (From Hycodan AdvReac Mild NA-NAUSEA; Verified 01/18/25 14:30 (with homatropin)) ANOREXIA hydrocodone (From Hycodan AdvReac Mild NA-NAUSEA; Verified 01/18/25 14:30 (with homatropin)) ANOREXIA [facility] Disclaimer: The information contained in this section may have been updated after the patient was seen, as this information can be updated by other users. Medical History Fistula of vagina Surgical History History of hernia repair H/O total hysterectomy History of tonsillectomy Social History Smoking Status: Never smoker alcohol intake: never substance use type: denies use current occupational status: retired Travel in the last 8 weeks?: None household members: other housing: apartment Have you lived/traveled outside [place] in past 30 days?: No Contact w/someone who lives/traveled outside [place] past 30 days?: No Exposure to someone with infectious disease in past 14 days?: No Do you have a fever (greater than 100.4 F or 38 C)?: No Have you tested positive for COVID-19?: No Exposed to someone with COVID-19 in past 14 days?: No Do you have a sore throat?: No Do you have a cough?: No Do you have any weakness?: No Do you have any diarrhea?: No Are you experiencing any unusual bleeding?: No Do you have any muscle aches/pain?: No Do you have any abdominal pain?: No Are you experiencing loss of taste or smell?: No Other Medical History Have you received the Flu Vaccine for this season: No Have you received the Pneumonia Vaccine: No ROS Obtained: Yes Systems reviewed as appropriate & no additional complaints except as documented Physical Exam General General appearance: other (See MDM) Respiratory Respiratory exam: Present other (See MDM) Cardiovascular Cardiovascular exam: Present other (See MDM) Neurological Exam Neurological exam: Present other (See MDM) Medical Decision Making Medical Records Medical records reviewed: Yes I reviewed the patient's medical records. Screening: Per USPSTF and CDC recommendations, given the prevalence of disease in our region, it is our hospital?s policy to screen for HIV and viral Hepatitis for all patients aged 18 and over and those with ongoing risk factors. Fly Inquiry Pt receiving controlled substance: No Fly was queried for this patient: No Vital Signs: 04/07/25 18:22 04/07/25 19:00 04/07/25 19:30 Temperature 98.5 F Temperature Source Temporal Artery Scan Pulse Rate 71 78 Pulse Rate [Left Radial] 89 Respiratory Rate 16 Blood Pressure 142/70 H 150/77 H Blood Pressure [Right Arm] 153/72 H Blood Pressure Mean [Right Arm] 99 Blood Pressure Source Blood Pressure Source [Right Arm] Automatic Cuff Blood Pressure Position Blood Pressure Position [Right Arm] Sitting 02 Sat by Pulse Oximetry 96 96 95 Oxygen Delivery Method Room Air 04/07/25 22:31 Temperature 98.0 F Temperature Source Oral Pulse Rate 78 Pulse Rate [Left Radial] Respiratory Rate 15 Blood Pressure 150/77 H Blood Pressure [Right Arm] Blood Pressure Mean [Right Arm] Blood Pressure Source Automatic Cuff Blood Pressure Source [Right Arm] Blood Pressure Position Sitting Blood Pressure Position [Right Arm] 02 Sat by Pulse Oximetry Oxygen Delivery Method Room Air Lab Data Lab Results 04/07/25 19:37: Urine Color Yellow, Urine Appearance Cloudy, Urine pH 7.0, Ur Specific [place] 1.015, Urine Protein Negative, Urine Glucose (UA) Negative, Urine Ketones Negative, Urine Blood Negative, Urine Nitrate Negative, Urine Bilirubin Negative, Urine Urobilinogen 0.2, Ur Leukocyte Esterase 1+ A, Urine RBC Occasional, Urine WBC 10-20, Ur Squamous Epith Cells 5-10, Amorphous Sediment 1+, Urine Bacteria 4+ 04/07/25 21:00: WBC 13.6 H, RBC 3.39 L, Hgb 11.0 L, Hct 32.6 L, MCV 96.2, MCH 32.4 H, MCHC 33.7, RDW 13.1, Plt Count 249, MPV 9.5, Neut % (Auto) 80.1 H, Lymph % (Auto) 10.7, Sargent % (Auto) 8.3, Eos % (Auto) 0.4, Baso % (Auto) 0.2, Neut # (Auto) 10.9 H, Lymph # (Auto) 1.5, Sargent # (Auto) 1.1 H, Eos # (Auto) 0.1, Baso # (Auto) 0.0, Sodium 138, Potassium 3.5, Chloride 102, Carbon Dioxide 31 H, Anion Gap 8.5, BUN 11, Creatinine 0.40 L, Estimated Creat Clear 27, Estimated GFR 150, Est GFR ( Amer) 182, Glucose 92, Calcium 8.4, Magnesium 1.9, Total Bilirubin 0.4, AST 21, ALT 11 L, Alkaline Phosphatase 98, Total Creatine Kinase 30, Total Protein 6.7, Albumin 3.9, Globulin 2.8, Albumin/Globulin Ratio 1.4, Lipase 16 L 04/07/25 21:00 04/07/25 21:00 Orders (Tests/Meds): ED MEDICATIONS Discontinued Medications Generic Name Dose Route Start Last Admin Trade Name Freq PRN Reason Stop Dose Admin Iopamidol 75 ml 04/07/25 21:08 04/07/25 21:08 Iopamidol-370 (76%);100ml Bottle IV 04/07/25 21:09 75 ml ONCE ONE Administration Methocarbamol 1,000 mg 04/07/25 19:21 04/07/25 19:33 Methocarbamol 500mg Tablet PO 04/07/25 19:22 1,000 mg ONCE ONE Administration Sodium Chloride 10 ml 04/07/25 21:08 04/07/25 21:08 Sodium Chloride 0.9% 10ml Syr (Rad Only) IV 04/07/25 21:09 10 ml ONCE ONE Administration ORDERS Category Date Time Status CT abdomen pelvis w con Stat Cat Scan 04/07/25 19:20 Completed CBC w/Auto Diff [Complete Blood Count Auto Diff] Stat Lab 04/07/25 21:00 Completed CK [Creatine Kinase] Stat Lab 04/07/25 21:00 Completed CMP [Comprehensive Metabolic Panel] Stat Lab 04/07/25 21:00 Completed Lipase Stat Lab 04/07/25 21:00 Completed Magnesium Stat Lab 04/07/25 21:00 Completed Urinalysis and Microscopic Stat Lab 04/07/25 19:37 Completed Urine Culture Stat Micro 04/07/25 19:37 Received Medical Decision Narrative: In summary, this is an 89-year-old female patient who is presenting to the emergency department today for evaluation of left flank pain and left lower quadrant abdominal pain. She states that this is quite chronic in nature but is worsened recently. She has not had any traumatic injuries to her hip or her back. On initial evaluation of the patient they were resting comfortably in no acute distress and nontoxic in appearance. They are hemodynamically stable, saturating well room air, and are neurologically intact. On physical examination she has a GCS of 15 and is appropriately alert and interactive. Her heart and lungs are clear to auscultation bilaterally. On abdominal exam she does have left lower quadrant abdominal tenderness to palpation. There is no eric peritonitis. She has no tenderness of the C, T, or L-spine. She allows me to perform passive and active range of motion of the left hip and the right hip. She has normal sensation in all terminal nerve distributions of the bilateral lower extremities. She does have some spasms in the left paraspinal musculature as well as tenderness of the left buttock with no overlying skin changes Differential diagnosis includes diverticulitis, ureterolithiasis, urinary tract infection, pyelonephritis, muscle spasms, electrolyte derangement, acute kidney injury, intra-abdominal abscess, among others. Workup was initiated with hematologic labs as well as a CT scan of the abdomen and pelvis. We did treat the patient in the emergency department with 1000 mg of Robaxin. Labs were personally interpreted by me demonstrate a nonspecific leukocytosis of 13.6. She does have a mild anemia that is stable from prior. No evidence of significant electrolyte derangement or acute kidney injury. No transaminitis. Lipase is normal. CT scan showed no acute abnormalities that would explain the patient's symptoms. On reassessment, patient is feeling minimal improvement. We discussed continued muscle relaxers in the event this is due to to muscle spams. All questions were answered and all parties agreeable with the decision to discharge home. ADDENDUM: After patient was discharged, i was reviewing the chart. Patient does have a urinary tract infection. I have called the patient to inform her of this. I have transmitted Bactrim BID for 5 days to the pharmacy. She acknowledges understanding. Critical Care Critical Care Time Critical Care Time: No
== END 2025-04-07 22:36 | disposition home or self-care (01) ==
PROVIDERS: Emergency Provider Student in an Organized Health Care Education/Training Program; PCP Nurse Practitioner Family
DX: R10.32 Left lower quadrant pain (principal); N39.0 Urinary tract infection, site not specified; M54.59 Other low back pain
CPT/HCPCS: 74177; 80053; 81001; 82550; 83690; 83735; 85025; 87086; 99283; 99284; Q9967